=== PATIENT | female | born 1955 | race Caucasian/White ===

== ENCOUNTER 2020-04-15 10:06 | Outpatient (REF) | payer MEDICARE, MEDICAID, SELFPAY ==
--- NOTE | 2020-04-15 | US_ITS ---
EXAMINATION: US THYROID CLINICAL INFORMATION: Multinodular goiter. COMPARISON: Ultrasound soft tissue head/neck thyroid dated 03/23/2019. TECHNIQUE: Linear transducer gomez-scale and color Doppler examination with attention to the region of the thyroid. FINDINGS: SIZE: Measurements of the thyroid lobes and nodules are given in sagittal, anteroposterior and transverse dimensions respectively. Right Thyroid Lobe: 3.9 x 1.5 x 1.8 cm, volume 5.5 mL. Previously 4.9 x 1.3 x 1.5 cm, volume 5.2 mL. Parenchyma: The gland echotexture is heterogeneous. Thyroid vascularity is increased. Left Thyroid Lobe: 4.6 x 1.7 x 2.3 cm, volume 9.4 mL. Previously 4.7 x 1.6 x 1.7 cm, volume 6.7 mL. Parenchyma: The gland echotexture is heterogeneous. Thyroid vascularity is increased. Isthmus: 0.3 cm in maximum AP dimension. Previously 0.2 cm. RIGHT THYROID LOBE: There are 4 nodules seen. 1. Location: Superior. Size: 0.6 x 0.3 x 0.4 cm. Previous: This nodule is new. Nodule characteristics: Heterogenous, irregular margins with no intranodular flow. 2. Location: Inferior. Size: 0.5 x 0.2 x 0.5 cm. Previous: 0.5 x 0.3 x 0.3 cm. Nodule characteristics: Hypoechoic, smoothly marginated with echogenic microcalcifications and intranodular flow. 3. Location: Inferior. Size: 0.6 x 0.6 x 0.6 cm. Previous: 0.5 x 0.5 x 0.5 cm. Nodule characteristics: Heterogeneous, hypoechoic rind, no microcalcifications and intranodular flow. 4. Location: Inferior. Size: 0.8 x 0.4 x 0.6 cm. Previous: This nodule is new. Nodule characteristics: Heterogeneous, hypoechoic rind, no calcifications with intranodular flow. ISTHMUS: No nodules. LEFT THYROID LOBE: There is 1 nodule seen. 1. Location: Inferior. Size: 2.1 x 1.5 x 1.8 cm. Previous: 2.3 x 1.7 x 1.7 cm. Nodule characteristics: Heterogeneous, hypoechoic rind with intranodular calcifications and peripheral increased flow. NODES: No lymphadenopathy is seen in the tissue surrounding the thyroid gland. US/US thyroid IMPRESSION: Subcentimeter thyroid nodules right lobe, nonsuspicious. Solitary nodule left lobe measuring 2.1 cm previously measured 2.3 cm, suspicious. A fine-needle biopsy aspiration can be performed if clinically deemed necessary and if biopsy not done previously.
== END 2020-04-15 10:07 | disposition home or self-care (01) ==
LOC: HO.US 10:06
PROVIDERS: Visit Provider Internal Medicine
DX: E04.2 Nontoxic multinodular goiter (principal)
CPT/HCPCS: 76536

== ENCOUNTER → 2020-08-06 09:38 | Outpatient (BNVA) | payer MEDICARE, MEDICAID, SELFPAY | PROVIDERS: PCP Internal Medicine; Visit Provider Physician Assistant | DX: Z76.89 Persons encountering health services in other specified circumstances (principal) | CPT/HCPCS: Q3014 ==

== ENCOUNTER 2020-09-05 09:05 | Outpatient (REF) | payer MEDICARE, MEDICAID, SELFPAY ==
--- NOTE | ~2020-09-05 | XR_ITS ---
EXAMINATION: PELVIS AND RIGHT HIP X-RAY CLINICAL INFORMATION: Right hip pain COMPARISON: None TECHNIQUE: One view of the pelvis and 2 views of the right hip FINDINGS: Right hip: Bone alignment is normal. No fracture or dislocation is seen. Joint spaces are normal. Soft tissues are normal. Pelvis: No fracture or dislocation or bone lesion is seen. There is posterior fusion hardware seen in the lower lumbar sacral spine. There are mild degenerative changes at the sacroiliac joints. Hip joints are unremarkable. Soft tissues are unremarkable. XR/XR pelvis 1-2V IMPRESSION: Postsurgical change to the lower lumbar sacral spine otherwise unremarkable exam.
--- NOTE | ~2020-09-05 | XR_ITS ---
EXAMINATION: PELVIS AND RIGHT HIP X-RAY CLINICAL INFORMATION: Right hip pain COMPARISON: None TECHNIQUE: One view of the pelvis and 2 views of the right hip FINDINGS: Right hip: Bone alignment is normal. No fracture or dislocation is seen. Joint spaces are normal. Soft tissues are normal. Pelvis: No fracture or dislocation or bone lesion is seen. There is posterior fusion hardware seen in the lower lumbar sacral spine. There are mild degenerative changes at the sacroiliac joints. Hip joints are unremarkable. Soft tissues are unremarkable. XR/XR hip RT min 2V IMPRESSION: Postsurgical change to the lower lumbar sacral spine otherwise unremarkable exam.
== END 2020-09-05 09:06 | disposition home or self-care (01) ==
LOC: HO.HOSX 09:05
PROVIDERS: Visit Provider Physician Assistant
DX: M25.551 Pain in right hip (principal); M53.86 Other specified dorsopathies, lumbar region; F17.210 Nicotine dependence, cigarettes, uncomplicated
CPT/HCPCS: 72170; 73502; 99202

== ENCOUNTER 2020-09-19 10:51 | Day surgery (SDC) | payer MEDICARE, MEDICAID, SELFPAY ==
[2020-09-12 19:48] VITALS: BMI 23.2
--- NOTE | 2020-09-18 10:01 | P.CONAN_ITS ---
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 Sister No problems noted. Daughter No problems noted. Daughter No problems noted. Surgical History Surgical History History of appendectomy History of breast surgery History of colonoscopy History of eye surgery History of hysterectomy History of surgery Social History Social History (Updated 09/19/20 @ 11:32 by Italia Patton) Household Members: None Alcohol intake: current Alcohol intake frequency: a few times a month Alcohol type: beer Smoking Status: Current every day smoker Tobacco Type: Cigarette Packs Per Day: 1 Cigarettes Per Day: 20.0 Smoked in Last 30 Days: Yes Use of substances other than those prescribed or required for medical reasons: Yes Substance Use Type: Marijuana Last Used Substance: Days (ago) Last Used Substance Other:: 4 days ago Have you been hit, kicked, punched, or otherwise hurt by someone within the past year? If so, by whom?: No Advance Directives: No Advance Directives Information Provided: No Advance Directives on File: No Recently lost weight without trying: No Current occupational status: retired Meds Allergies Allergy/AdvReac Type Severity Reaction Status Date / Time No Known Allergies Allergy Verified 05/21/20 06:51 Exam Exam Date and Time: September 18, 2020 1001 Height,Weight and Vital Signs: Height 5 ft 2 in Weight 57.606 kg Assessment and Plan Assessment Anesthesia Assessment: Chart Reviewed Documented by User: Italia Patton 09/19/20 11:36 PMFSH Past Medical History Medical History Back pain Depression Osteoporosis PONV (postoperative nausea and vomiting) Family History Family History Father Colon cancer Mother Cancer Brother No problems noted. Sister No problems noted. Daughter No problems noted. Daughter No problems noted. Family history of problems with anesthesia: No Surgical History Surgical History History of appendectomy History of breast surgery History of colonoscopy History of eye surgery History of hysterectomy History of surgery History of Problems with Anesthesia: Yes (PONV) Social History Social History (Updated 09/19/20 @ 11:32 by Italia Patton) Household Members: None Alcohol intake: current Alcohol intake frequency: a few times a month Alcohol type: beer Smoking Status: Current every day smoker Tobacco Type: Cigarette Packs Per Day: 1 Cigarettes Per Day: 20.0 Smoked in Last 30 Days: Yes Use of substances other than those prescribed or required for medical reasons: Yes Substance Use Type: Marijuana Last Used Substance: Days (ago) Last Used Substance Other:: 4 days ago Have you been hit, kicked, punched, or otherwise hurt by someone within the past year? If so, by whom?: No Advance Directives: No Advance Directives Information Provided: No Advance Directives on File: No Recently lost weight without trying: No Current occupational status: retired [employer] Allergies Allergy/AdvReac Type Severity Reaction Status Date / Time No Known Allergies Allergy Verified 05/21/20 06:51 Exam Height,Weight and Vital Signs: Vital Signs Temp Pulse Resp BP Pulse Ox 09/19/20 11:05 98.9 F 128 H 18 126/86 95 Pulse 75 Airway Mallampati Class: II TM Dist: >3cm Neck ROM: Full Partial: Upper and Lower Loose/Missing/Broken Teeth: Yes (Many missing. Partial dentures) Heart: RRR Lungs: CTAB Assessment and Plan Assessment Anesthesia Assessment: Anesthesia Plan Discussed and Chart Reviewed Final Anesthetic Review NPO: Yes ASA Class: II Final Preanesthetic Review: No Changes in Pt Med Stat, Meds/Allgs Chart Reviewed, Consent Obtained/Reviewed and Anes Risks/Benef Reviewed Patient Risk: Low Procedure Risk: Low Assessment/Block/Sedation in SS: Assess/Block/Sedation-SS Anesthetic Plan Anesthetic Plan: MAC: Disposition: Standard PACU
[2020-09-19 11:05] VITALS: BP 126/86; PULSE 128; RESP 18; TEMP 37.2; O2SAT 95
[2020-09-19 11:20] VITALS: BMI 22.8
[2020-09-19] MEDS: Lactated Ringers 1,000 ML 100 ML IVCONT (11:20)
--- NOTE | 2020-09-19 11:38 | MHC.SHP ---
Pre-Procedural Eval Section B Chief Complaint: Screening Details of Present Illness: father with CRC Relevant Family History (Specify if Yes): Yes Relevant Social History: Tobacco Use Present Medications: see Short Stay Collaborative assessment Medical History: Significant History (Back pain Depression Osteoporosis PONV (postoperative nausea and vomiting)) History of Previous Operations: Relevant previous surgery/procedure and date(s) (History of appendectomy History of breast surgery History of colonoscopy History of eye surgery History of hysterectomy History of surgery) Allergies: Allergies Allergy/AdvReac Type Severity Reaction Status Date / Time No Known Allergies Allergy Verified 05/21/20 06:51 Review of Systems Sugical H&P ROS: Negative: Constitution, Cardiovascular, Respiratory, Neurological, Psychiatric, Hem-Onc, Allergic/Immunologic, Gastrointestinal, Genitourinary, Musculoskeletal, Integumentary, Endocrine and Eyes/Ears/Nose/Throat Exam Surgical H&P Exam: Normal: HEENT, Normal: Heart, Normal: Lungs, Normal: Extremities, Normal: Abdomen, Normal: Skin and Normal: Neurological Plan Diagnosis/Plan: Unchanged I have reviewed the history and physical and performed a pertinent physical examination on my patient. No changes have occurred unless specified.
--- NOTE | 2020-09-19 12:28 | PM.OP ---
Brief Operative Note Date of Service: 09/19/20 Pre-op diagnosis: FH CRC in father, prior incomplete colonoscopy Post-op diagnosis: same Procedure: see op note Surgeon: Kaylene Hernández MD Anesthesia: MAC Estimated blood loss (mL): 0 Condition: stable Disposition: PACU
--- NOTE | 2020-09-19 12:29 | P.OP_ITS ---
Operative Note Operative Note Date of Service: 09/19/20 Narrative: Operative Information Procedure Description: Colonoscopy COLONOSCOPY Instrument: Olympus variable stiffness pediatric scope 190L Colonoscopy Monitoring: Vital signs and clinical assessment, continuous EKG monitoring, Pulse oximetry, Carbon Dioxide monitoring and blood pressure monitoring were done throughout the procedure. Colon withdrawal time was 19 minutes. Procedure: The patient was placed in the left lateral decubitis position and pre-procedure medications were administered. After a digital rectal examination of the ano-rectum, the video colonoscope was inserted into the rectum and advanced through the colon to the cecum/TI. The colonoscope was slowly withdrawn in a retrograde panoramic fashion and the colon mucosa was carefully examined including a retroflexed view of the rectum. Findings and interventions are described below. Procedure Difficulty:difficult due to very tight rectosigmoid junction and sigmoid colon, had to really carefully manipulate the scope to get around Findings: Terminal Ileum-normal Cecum:normal Ascending Colon: normal Transverse Colon - x 2 sessile polyps 7-9 mm removed with forceps Descending Colon:normal Sigmoid Colon: severe diverticulosis with mucosal hypertrophy and narrowing Rectum: Retroflexion with moderate sized internal hemorrhoids, grade I, 3 sessile polyps removed with cold snare Anorectum - normal Colon preparation: [place] Bowel Preparation Scale Right colon; 1 Transverse colon: 2 Left colon; 1 (0 = Unprepared colon segment with mucosa not seen due to solid stool that cannot be cleared. 1 = Portion of mucosa of the colon segment seen, but other areas of the colon segment not well seen due to staining, residual stool and/or opaque liquid. 2 = Minor amount of residual staining, small fragments of stool and/or opaque liquid, but mucosa of colon segment seen well. 3 = Entire mucosa of colon segment seen well with no residual staining, small fragments of stool or opaque liquid) Impression and Post Procedure Diagnosis: polyps internal hemorrhoids diverticular disease Plan: High fiber diet leaflet Avoid straining at stool, epsom salts and sitz bath, anusol supps or cream as needed Repeat Colonoscopy in 1-2 years due to prep or earlier if clinically indicated Above findings were reviewed with the patient and relevant handouts were provided if indicated.
[2020-09-19 12:36] VITALS: BP 108/77; PULSE 74; RESP 16; TEMP 36.4; O2SAT 97
[2020-09-19 12:50] VITALS: BP 122/67; PULSE 66; RESP 16; TEMP 36.4; O2SAT 97
== END 2020-09-19 13:41 | disposition home or self-care (01) ==
PROVIDERS: PCP Internal Medicine; Visit Provider Internal Medicine Gastroenterology
PROC: 0DJD8ZZ Inspection of Lower Intestinal Tract, Via Natural or Artificial Opening Endoscopic (ICD-10-PCS; CPT 45378; principal; 2020-09-19 12:00)
DX: Z12.11 Encounter for screening for malignant neoplasm of colon (principal); Z80.0 Family history of malignant neoplasm of digestive organs; D12.3 Benign neoplasm of transverse colon; K63.5 Polyp of colon; K57.30 Diverticulosis of large intestine without perforation or abscess without bleeding; K64.0 First degree hemorrhoids; K63.89 Other specified diseases of intestine; M81.0 Age-related osteoporosis without current pathological fracture; Z85.3 Personal history of malignant neoplasm of breast; Z79.899 Other long term (current) drug therapy; F17.210 Nicotine dependence, cigarettes, uncomplicated; F12.90 Cannabis use, unspecified, uncomplicated
CPT/HCPCS: 45385; 45380; 88305; J2405

== ENCOUNTER → 2020-09-26 13:36 | Outpatient (BNVA) | payer MEDICARE, MEDICAID, SELFPAY | PROVIDERS: PCP Internal Medicine; Visit Provider Physician Assistant | DX: D36.9 Benign neoplasm, unspecified site (principal); K57.90 Diverticulosis of intestine, part unspecified, without perforation or abscess without bleeding | CPT/HCPCS: Q3014 ==

== ENCOUNTER → 2020-09-30 08:51 | Outpatient (BNVA) | payer MEDICARE, MEDICAID, SELFPAY | PROVIDERS: PCP Internal Medicine; Visit Provider Nurse Practitioner Family | DX: M53.3 Sacrococcygeal disorders, not elsewhere classified (principal); M96.1 Postlaminectomy syndrome, not elsewhere classified | CPT/HCPCS: 99202 ==

== ENCOUNTER 2020-11-05 06:56 | Outpatient (REF) | payer MEDICARE, MEDICAID, SELFPAY ==
--- NOTE | ~2020-11-05 | FL_ITS ---
EXAMINATION: XR FLUOROSCOPY WITH IMAGES CLINICAL INFORMATION: Sacrococcygeal disorder. COMPARISON: Right hip and pelvis 09/05/2020 TECHNIQUE: Fluoroscopy performed by Parisa Barillas NP. Fluoroscopy time: 0.0 minutes DAP: 0.584 Gycm2 Images: 1 FINDINGS: There is needle positioned adjacent to the right SI joint with contrast opacifying soft tissues adjacent to the SI joint. Incidental findings of S1, L4 and L4 bilateral pedicular screws and intervening rods for fusion. FL/FL guidance in treatment room IMPRESSION: Fluoroscopy was provided to Parisa Barillas for right hip procedure.
== END 2020-11-05 06:57 | disposition home or self-care (01) ==
LOC: HO.RADIR 06:56
PROVIDERS: Visit Provider Anesthesiology
DX: M53.3 Sacrococcygeal disorders, not elsewhere classified (principal); M96.1 Postlaminectomy syndrome, not elsewhere classified
CPT/HCPCS: 27096; J3300; Q9967

== ENCOUNTER → 2020-12-11 12:51 | Outpatient (BNVA) | payer MEDICARE, MEDICAID, SELFPAY | PROVIDERS: PCP Internal Medicine; Visit Provider Nurse Practitioner Family | DX: M53.3 Sacrococcygeal disorders, not elsewhere classified (principal); M96.1 Postlaminectomy syndrome, not elsewhere classified; M25.551 Pain in right hip; M54.5 Low back pain; M81.0 Age-related osteoporosis without current pathological fracture; F32.9 Major depressive disorder, single episode, unspecified; F17.210 Nicotine dependence, cigarettes, uncomplicated; Z85.3 Personal history of malignant neoplasm of breast; Z92.3 Personal history of irradiation; Z90.710 Acquired absence of both cervix and uterus; Z79.899 Other long term (current) drug therapy | CPT/HCPCS: Q3014 ==

== ENCOUNTER 2021-12-10 11:36 | Outpatient (REF) | payer MEDICARE, MEDICAID, SELFPAY ==
[2021-12-10 14:11] LABS: Hematocrit 39.9 % (37.0-47.0); Hemoglobin 13.6 g/dl (12.0-16.0); Mean Corpuscular HGB Conc 34.1 g/dl (31.0-35.0); Mean Corpuscular Hemoglobin 32.2 pg (27.0-33.0); Mean Corpuscular Volume 94.5 fL (80.0-98.0); Mean Platelet Volume 10.9 fL (9.4-12.3); Platelet Count 330 X10*3/uL (160-400); Red Blood Count 4.22 X10*6/uL (4.20-5.50); Red Cell Distribution Width 14.7 % (11.0-16.0); White Blood Count 6.9 X10*3/uL (4.8-10.8)
[2021-12-10 14:18] LABS: Alanine Aminotransferase 11 U/L (0-31); Albumin Level 4.4 g/dL (3.5-5.0); Alkaline Phosphatase 96 U/L (39-117); Anion Gap 13 (12-20); Aspartate Amino Transferase 9 U/L (5-31); Bilirubin Total 0.6 mg/dL (0.0-1.0); Blood Urea Nitrogen 11 mg/dL (9-16); Calcium 9.6 mg/dL (8.4-10.2); Carbon Dioxide 27 mmol/L (22-29); Chloride 104 mmol/L (96-108); Cholesterol 235 mg/dL; Estimated Glomerular Filt Rate > 60; Glucose Fasting 106 mg/dL (60-99); HDL Cholesterol 61 mg/dL; LDL Cholesterol Calculated 144 mg/dl; Potassium 4.5 mmol/L (3.3-5.1); Sodium 139 mmol/L (135-145); Total Protein 7.5 g/dL (6.5-8.0); Triglycerides 152 mg/dL
[2021-12-10 14:44] LABS: TSH reflex Free T4 1.64 uIU/mL (0.32-4.0)
[2021-12-10 14:46] LABS: Folate 8.9 ng/mL (> or = 4.0); Vitamin B12 405 pg/mL (200-900)
== END 2021-12-10 11:37 | disposition home or self-care (01) ==
LOC: HO.10HDL 11:36
PROVIDERS: Visit Provider Nurse Practitioner Family
DX: F41.9 Anxiety disorder, unspecified (principal); Z13.1 Encounter for screening for diabetes mellitus; Z13.220 Encounter for screening for lipoid disorders; F32.A Depression, unspecified; M96.1 Postlaminectomy syndrome, not elsewhere classified; K57.90 Diverticulosis of intestine, part unspecified, without perforation or abscess without bleeding; M54.31 Sciatica, right side
CPT/HCPCS: 36415; 80053; 80061; 82306; 82607; 82746; 84443; 85027

== ENCOUNTER 2021-12-12 11:11 | Outpatient (REF) | payer MEDICARE, MEDICAID, SELFPAY ==
[2021-12-12 14:09] LABS: Estimated Average Glucose 100 mg/dL; Hemoglobin A1c % 5.1 %
== END 2021-12-12 11:12 | disposition home or self-care (01) ==
LOC: HO.10HDL 11:11
PROVIDERS: Visit Provider Nurse Practitioner Family
DX: R73.01 Impaired fasting glucose (principal)
CPT/HCPCS: 36415; 83036

== ENCOUNTER → 2022-08-11 12:08 | Outpatient (BNVA) | payer MEDICARE, MEDICAID, SELFPAY | PROVIDERS: PCP Internal Medicine; Visit Provider Physician Assistant | DX: D36.9 Benign neoplasm, unspecified site (principal) | CPT/HCPCS: 99212 ==

== ENCOUNTER 2022-11-18 10:55 | Outpatient (REF) | payer MEDICARE, MEDICAID, SELFPAY ==
[2022-11-18 13:20] LABS: Hematocrit 42.3 % (37.0-47.0); Hemoglobin 14.4 g/dl (12.0-16.0); Mean Corpuscular Hemoglobin 32.1 pg (27.0-33.0); Mean Corpuscular Volume 94.2 fL (80.0-98.0); Platelet Count 301 X10*3/uL (160-400); Red Blood Count 4.49 X10*6/uL (4.20-5.50); Red Cell Distribution Width 13.7 % (11.0-16.0); White Blood Count 6.6 X10*3/uL (4.8-10.8)
[2022-11-18 13:43] LABS: Alanine Aminotransferase 18 U/L (0-31); Albumin Level 4.3 g/dL (3.5-5.0); Alkaline Phosphatase 98 U/L (39-117); Anion Gap 16 (12-20); Aspartate Amino Transferase 14 U/L (5-31); Bilirubin Direct 0.2 mg/dL (0.0-0.5); Bilirubin Total 0.6 mg/dL (0.0-1.0); Blood Urea Nitrogen 11 mg/dL (9-16); Calcium 10.2 mg/dL (8.4-10.2); Carbon Dioxide 27 mmol/L (22-29); Chloride 103 mmol/L (96-108); Cholesterol 234 mg/dL; Estimated Glomerular Filt Rate > 60; Glucose Random 102 mg/dL (60-115); HDL Cholesterol 51 mg/dL; LDL Cholesterol Calculated 146 mg/dl; Potassium 4.5 mmol/L (3.3-5.1); Sodium 141 mmol/L (135-145); Total Protein 7.5 g/dL (6.5-8.0); Triglycerides 188 mg/dL
[2022-11-18 13:48] LABS: Thyroid Stimulating Hormone 3.92 uIU/mL (0.32-4.0)
== END 2022-11-18 10:56 | disposition home or self-care (01) ==
LOC: HO.10HDL 10:55
PROVIDERS: Visit Provider Internal Medicine
DX: K57.90 Diverticulosis of intestine, part unspecified, without perforation or abscess without bleeding (principal); E78.00 Pure hypercholesterolemia, unspecified; E03.9 Hypothyroidism, unspecified
CPT/HCPCS: 36415; 80048; 80061; 80076; 84443; 85027

== ENCOUNTER 2022-12-31 07:20 | Day surgery (SDC) | payer MEDICARE, MEDICAID, SELFPAY ==
[2022-12-29 13:58] VITALS: BMI 22.7
--- NOTE | 2022-12-31 08:01 | MHC.SHP ---
Pre-Procedural Eval Section A Date of Service: 12/31/22 Section B Chief Complaint: screening Details of Present Illness: dad--colon cancer Relevant Family History (Specify if Yes): Yes Relevant Social History: Other (specify) (thc use,tobacco) Present Medications: see Short Stay Collaborative assessment Medical History: Significant History (Back pain History of COVID-19 Osteoporosis PONV (postoperative nausea and vomiting)) History of Previous Operations: Relevant previous surgery/procedure and date(s) ( History of appendectomy History of breast surgery History of colonoscopy History of eye surgery History of hysterectomy History of surgery) Allergies: Allergies Allergy/AdvReac Type Severity Reaction Status Date / Time No Known Allergies Allergy Verified 08/11/22 12:18 Review of Systems Sugical H&P ROS: Negative: Constitution, Cardiovascular, Respiratory, Neurological, Psychiatric, Hem-Onc, Allergic/Immunologic, Gastrointestinal, Genitourinary, Musculoskeletal, Integumentary, Endocrine and Eyes/Ears/Nose/Throat Plan I have reviewed the history and physical and performed a pertinent physical examination on my patient. No changes have occurred unless specified. Time Spent With Patient Time: Total time managing care of this patient today ____ minutes.
[2022-12-31 08:02] VITALS: BP 114/67; PULSE 78; RESP 16; TEMP 37; O2SAT 97
[2022-12-31] MEDS: Lactated Ringers 1,000 ML 80 ML IVCONT (08:19)
--- NOTE | 2022-12-31 08:19 | P.CONAN_ITS ---
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 Sister No problems noted. Daughter No problems noted. Daughter No problems noted. Family/Other Mental health disorder Substance use disorder Family history of problems with anesthesia: No Surgical History Surgical History (Updated 12/29/22 @ 13:56 by Kristy Bhatt RN) History of appendectomy History of breast surgery History of colonoscopy History of eye surgery History of hysterectomy History of surgery History of Problems with Anesthesia: Yes (PONV) Social History Social History Household Members: None Housing: Other Alcohol intake: current Alcohol intake frequency: a few times a month Alcohol type: beer Patient Tobacco Use Status: Current everyday Tobacco user Tobacco use type: Cigarette Cigarette Packs Per Day: 0.5 Cigarettes Per Day: 10 e-Cigarette/Vaping Use: Never Used Second Hand Smoke Exposure: No Use of substances other than those prescribed or required for medical reasons: Yes Substance Use Type: Marijuana Advance Directives: Yes Advance Directives Information Provided: Yes Advance Directives on File: Yes Advance Directives Date on File: 02/13/13 service: No Current occupational status: retired Cognitive needs: No Hearing needs: No Vision needs: No Meds Allergies Allergy/AdvReac Type Severity Reaction Status Date / Time No Known Allergies Allergy Verified 08/11/22 12:18 Exam Exam Date and Time: December 31, 2022 0819 Height,Weight and Vital Signs: Height 5 ft 2 in Weight 56.245 kg Last Vital Signs Temp 98.6 F 12/31/22 08:02 Pulse 78 12/31/22 08:02 Resp 16 12/31/22 08:02 BP 114/67 12/31/22 08:02 Pulse Ox 97 12/31/22 08:02 O2 Del Method Room Air 12/31/22 08:02 Airway Mallampati Class: II TM Dist: >3cm Neck ROM: Full Assessment and Plan Assessment Anesthesia Assessment: Anesthesia Plan Discussed and Chart Reviewed Final Anesthetic Review Family History of Problems with Anesthesia: No History of Problems with Anesthesia: Yes (PONV) NPO: Yes ASA Class: II Final Preanesthetic Review: No Changes in Pt Med Stat, Meds/Allgs Chart Reviewed, Consent Obtained/Reviewed and Anes Risks/Benef Reviewed Patient Risk: Intermediate Procedure Risk: Low Anesthetic Plan Anesthetic Plan: MAC: Disposition: Standard PACU
--- NOTE | 2022-12-31 08:23 | P.CONAN_ITS ---
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 Sister No problems noted. Daughter No problems noted. Daughter No problems noted. Family/Other Mental health disorder Substance use disorder Family history of problems with anesthesia: No Surgical History Surgical History (Updated 12/29/22 @ 13:56 by Kristy Bhatt RN) History of appendectomy History of breast surgery History of colonoscopy History of eye surgery History of hysterectomy History of surgery History of Problems with Anesthesia: No (PONV) Social History Social History Household Members: None Housing: Other Alcohol intake: current Alcohol intake frequency: a few times a month Alcohol type: beer Patient Tobacco Use Status: Current everyday Tobacco user Tobacco use type: Cigarette Cigarette Packs Per Day: 0.5 Cigarettes Per Day: 10 e-Cigarette/Vaping Use: Never Used Second Hand Smoke Exposure: No Use of substances other than those prescribed or required for medical reasons: Yes Substance Use Type: Marijuana Advance Directives: Yes Advance Directives Information Provided: Yes Advance Directives on File: Yes Advance Directives Date on File: 02/13/13 service: No Current occupational status: retired Cognitive needs: No Hearing needs: No Vision needs: No Meds Allergies Allergy/AdvReac Type Severity Reaction Status Date / Time No Known Allergies Allergy Verified 08/11/22 12:18 Active Medications: Current Medications Lactated Ringer's (Lr) 1,000 mls @ 80 mls/hr IVCONT .[id number] JULIAN Last Admin: 12/31/22 08:19 Dose: 80 mls/hr Exam Exam Date and Time: December 31, 2022 0823 Height,Weight and Vital Signs: Height 5 ft 2 in Weight 56.245 kg Last Vital Signs Temp 98.6 F 12/31/22 08:02 Pulse 78 12/31/22 08:02 Resp 16 12/31/22 08:02 BP 114/67 12/31/22 08:02 Pulse Ox 97 12/31/22 08:02 O2 Del Method Room Air 12/31/22 08:02 Airway Mallampati Class: II TM Dist: >3cm Neck ROM: Full Loose/Missing/Broken Teeth: Yes, Upper and Lower Assessment and Plan Assessment Anesthesia Assessment: Anesthesia Plan Discussed, Smoking Cess. Discussed and Chart Reviewed Final Anesthetic Review Family History of Problems with Anesthesia: No History of Problems with Anesthesia: No (PONV) NPO: Yes ASA Class: III Final Preanesthetic Review: No Changes in Pt Med Stat, Meds/Allgs Chart Reviewed, Consent Obtained/Reviewed and Anes Risks/Benef Reviewed Patient Risk: Intermediate Procedure Risk: Low Anesthetic Plan Anesthetic Plan: MAC: Disposition: Standard PACU
--- NOTE | 2022-12-31 08:55 | P.OP_ITS ---
Operative Note Operative Note Date of Service: 12/31/22 Narrative: Operative Information Procedure Description: Colonoscopy Indication: hx of colon polyps, FH of CRC Anesthesia: MAC COLONOSCOPY Instrument: Olympus variable stiffness pediatric scope 190L Colonoscopy Monitoring: Vital signs and clinical assessment, continuous EKG monitoring, Pulse oximetry, Carbon Dioxide monitoring and blood pressure monitoring were done throughout the procedure. Colon withdrawal time was 9 minutes. Procedure: The patient was placed in the left lateral decubitis position and pre-procedure medications were administered. After a digital rectal examination of the ano-rectum, the video colonoscope was inserted into the rectum and advanced through the colon to the cecum/TI. The colonoscope was slowly withdrawn in a retrograde panoramic fashion and the colon mucosa was carefully examined including a retroflexed view of the rectum. Findings and interventions are described below. Procedure Difficulty: moderate-tight rectosigmoid jn Findings: Terminal Ileum-normal, small tic seen Cecum:normal Ascending Colon: moderate severe diverticulosis Transverse Colon - normal Descending Colon: diverticulosis Sigmoid Colon:? severe diverticulosis with mucosal hypertrophy and narrowing, 10 mm sessile polyp removed with cold snare Rectum: Retroflexion with moderate sized internal hemorrhoids, grade I, Anorectum - normal Colon preparation: [place] Bowel Preparation Scale Right colon; 2 Transverse colon: 3 Left colon; 3 (0 = Unprepared colon segment with mucosa not seen due to solid stool that cannot be cleared. 1 = Portion of mucosa of the colon segment seen, but other areas of the colon segment not well seen due to staining, residual stool and/or opaque liquid. 2 = Minor amount of residual staining, small fragments of stool and/or opaque liquid, but mucosa of colon segment seen well. 3 = Entire mucosa of colon segment seen well with no residual staining, small fragments of stool or opaque liquid) Impression and Post Procedure Diagnosis: polyp internal hemorrhoids diverticular disease Plan: High fiber diet leaflet Avoid straining at stool, epsom salts and sitz bath, anusol supps or cream Repeat Colonoscopy in 5 years due to polyp today and pos FH of CRC or earlier if clinically indicated Above findings were reviewed with the patient and relevant handouts were provided if indicated.
[2022-12-31 09:19] VITALS: BP 109/64; PULSE 67; RESP 20; TEMP 36.9; O2SAT 96
[2022-12-31 09:34] VITALS: BP 117/67; PULSE 61; RESP 16; TEMP 36.8; O2SAT 97
== END 2022-12-31 10:08 | disposition home or self-care (01) ==
PROVIDERS: PCP Internal Medicine; Visit Provider Internal Medicine Gastroenterology
PROC: 0DJD8ZZ Inspection of Lower Intestinal Tract, Via Natural or Artificial Opening Endoscopic (ICD-10-PCS; CPT 45378; principal; 2022-12-31 09:10)
DX: Z12.11 Encounter for screening for malignant neoplasm of colon (principal); Z86.010 Personal history of colon polyps; Z80.0 Family history of malignant neoplasm of digestive organs; K63.5 Polyp of colon; K57.30 Diverticulosis of large intestine without perforation or abscess without bleeding; K64.0 First degree hemorrhoids; M81.0 Age-related osteoporosis without current pathological fracture; F17.210 Nicotine dependence, cigarettes, uncomplicated; F12.90 Cannabis use, unspecified, uncomplicated; Z86.16 Personal history of COVID-19; Z98.890 Other specified postprocedural states
CPT/HCPCS: 45385; 88305

== ENCOUNTER → 2022-12-31 07:20 | Outpatient (BNV) | payer MEDICARE, MEDICAID, SELFPAY | PROVIDERS: PCP Internal Medicine; Visit Provider Internal Medicine Gastroenterology | DX: Z86.010 Personal history of colon polyps (principal); Z80.0 Family history of malignant neoplasm of digestive organs; D12.5 Benign neoplasm of sigmoid colon; K64.0 First degree hemorrhoids; K57.30 Diverticulosis of large intestine without perforation or abscess without bleeding | CPT/HCPCS: 45385 ==

== ENCOUNTER 2023-01-13 11:15 | Outpatient (AMB) | payer MEDICARE, MEDICAID, SELFPAY ==
[2023-01-13 11:19] VITALS: BP 115/65; PULSE 107; BMI 23.0
--- NOTE | 2023-01-13 11:19 | A.OFFVIS_ITS ---
Intake Vital Signs 01/13/23 11:19 Height 5 ft 2 in Weight 126 lb BMI 23.0 BP 115/65 Blood Pressure Location Lt brachial Position Sitting Pulse 107 H Intake Visit Reasons: S/p colon-Hernández Intake Note: Patient follow up for Colonoscopy results. Patient denies any GI issues. 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 Accompanied by: Self / Same As Patient Allergies No Known Allergies Allergy (Verified 01/13/23 11:19) HPI HPI Comments History of Present Illness Details A 67 y/o female follows up after colonoscopy [facility] Medical History (Updated 01/14/23 @ 08:26 by Mary Chavarria PA-C) Back pain History of COVID-19 Osteoporosis PONV (postoperative nausea and vomiting) Surgical History (Updated 01/13/23 @ 11:40 by Mary Chavarria PA-C) History of appendectomy History of breast surgery History of colonoscopy History of eye surgery History of hysterectomy History of surgery Family History Father Colon cancer Mother Cancer Brother No problems noted. Sister No problems noted. Daughter No problems noted. Daughter No problems noted. Family/Other Mental health disorder Substance use disorder Social History Household Members: None Housing: Other Alcohol intake: current Alcohol intake frequency: a few times a month Alcohol type: beer Patient Tobacco Use Status: Current everyday Tobacco user Tobacco use type: Cigarette Cigarette Packs Per Day: 0.5 Cigarettes Per Day: 10 e-Cigarette/Vaping Use: Never Used Second Hand Smoke Exposure: No Substance Use Type: Marijuana Advance Directives Date on File: 02/13/13 service: No Current occupational status: retired Cognitive needs: No Hearing needs: No Vision needs: No Review of Systems Const All systems reviewed & are unremarkable except as noted in HPI and below Card Denies chest pain and Denies dyspnea Resp Denies dyspnea GI Denies abdominal pain Psych Reports anxiety, Reports depression, Denies homicidal ideation and Denies suicidal ideation Physical Exam Vital Signs: Last Vital Signs Pulse 107 H 01/13/23 11:19 BP 115/65 01/13/23 11:19 BMI result Body Mass Index 23.0 Const General: cooperative, comfortable, no acute distress and anxious Orientation/consciousness: patient oriented x3 Limitations: no limitations Resp Effort & Inspection: normal respiratory effort and able to speak in complete sentences Auscultation: clear to auscultation bilaterally Cardio Rate: regular rate (APR-96) Neuro General: patient oriented x3 Extrem General: Yes full ROM Psych Appearance: grossly normal Mental Status: mental status grossly normal Speech and movement: Normal speech and movement present and Clear speech present Affect: Animated affect present and Anxious affect present Attitude: cooperative Thought process: Normal thought process present Thought content: Normal thought content present Results Reviewed Results Reviewed: mpression and Post Procedure Diagnosis: polyp internal hemorrhoids diverticular disease Plan: High fiber diet leaflet Avoid straining at stool, epsom salts and sitz bath, anusol supps or cream Repeat Colonoscopy in 5 years due to polyp today and pos FH of CRC or earlier if clinically indicated Name:?Catia Waggoner Age/Sex: 67/F Attending: Kaylene Hernández MD : 1955 Submitted by: Kaylene Hernández MD Copies to: Girma Baer MD MR #: [id number] ? Status: [facility] Collected: 12/31/22 Location: [facility] Received: 12/31/22 Diagnosis Colon, sigmoid, polypectomy:? Hyperplastic polyp. Clinical History Pre-Op Dx:? Colon cancer screening, Hx/o colon polyps, FHx/o colon cancer Post-Op Dx: Diverticulosis, colon polyp, hemorrhoids Sigmoid Colon:? severe diverticulosis with mucosal hypertrophy and narrowing, 10 mm sessile polyp removed with cold snare Rectum: Retroflexion with moderate sized internal hemorrhoids, grade I, Assessment & Plan Assessment & Plan (1) History of colonoscopy: Comment: 2020, 2014, 2012 (all limited due to inadequate prep) Code(s): Z98.890 - Other specified postprocedural states (2) Diverticulosis of colon: Code(s): K57.30 - Diverticulosis of large intestine without perforation or abscess without bleeding Plan: Maintain high-fiber diet Diverticulosis/diverticulitis ER proton (3) Hemorrhoids: Code(s): K64.9 - Unspecified hemorrhoids Plan: Avoid straining High-fiber diet Rectal cream p.r.n. Patient Instructions: Repeat colonoscopy 5 years Maintain high-fiber diet Avoid straining with him Diverticulosis/diverticulitis ER protocol No major barriers to understanding identified Encouraged to call questions or concerns Coding Level of Care Code Est Pt Level 3 (20606) Diagnoses History of colonoscopy Z98.890 Diverticulosis of colon K57.30 Hemorrhoids K64.9 Time Spent (min) 25
== END 2023-01-13 12:53 | disposition home or self-care (01) ==
PROVIDERS: PCP Internal Medicine; Visit Provider Physician Assistant
DX: Z98.890 Other specified postprocedural states (principal); K57.30 Diverticulosis of large intestine without perforation or abscess without bleeding; K64.9 Unspecified hemorrhoids
CPT/HCPCS: 99213

== ENCOUNTER → 2023-01-13 11:15 | Outpatient (BNVA) | payer MEDICARE, MEDICAID, SELFPAY | PROVIDERS: PCP Internal Medicine; Visit Provider Physician Assistant | DX: K57.30 Diverticulosis of large intestine without perforation or abscess without bleeding (principal); K64.9 Unspecified hemorrhoids; Z98.890 Other specified postprocedural states | CPT/HCPCS: 99212 ==

== ENCOUNTER 2023-03-12 11:04 | Outpatient (AMB) | payer MEDICARE, MEDICAID, SELFPAY ==
--- NOTE | 2023-03-12 11:17 | A.OFFPC_ITS ---
Vital Signs 03/12/23 11:19 Height 5 ft 2 in Weight 127 lb 4 oz BMI 23.3 BP 100/70 Blood Pressure Location Lt brachial Position Sitting Pulse 105 H Pulse Source Pulse Oximeter Pulse Oximetry (%) 95 Oxygen Delivery Method Room Air Intake Visit Reasons: Back pain/ Referral Intake Note: Patient is here to follow up on back pain. Requesting referral for back pain. 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 Accompanied by: Self / Same As Patient Allergies No Known Allergies Allergy (Verified 03/12/23 11:19) Tobacco use date assessed: 03/12/23 Fall risk assessment: No Falls in past year Last assessed Fall Risk: 03/12/23 Dental Screening Dental Screen Date: 03/12/23 Did you have a dental visit in the last 12 months?: Yes Did you have a dental problem in the last 6 months where you did not have access to dental care?: No Was dental information given to patient?: Patient has dentist HPI HPI Comments History of Present Illness Details 67-year-old female past medical history significant for anxiety, failed back syndrome, right-sided sciatica. Patient of Dr. Baer last seen in May patient presents today for back pain. Patient states she bending over to dump over tote. Patient states she felt it crack. Patient states occasional pain or sleeping, Patient states occasionally radiates down left leg left leg and numbness. Denies saddle parathesia and bowel or bladder incontinence. Patient reports Spinal fusion in 1998, at [facility] and has been followed by [facility]. Patient does report that back improving, denies any numbness or tingling down the legs, denies saddle paresthesias and denies any bowel or bladder continence. Patient states taking ibuprofen as needed with improvement of pain. [facility] Medical History Back pain History of COVID-19 Osteoporosis PONV (postoperative nausea and vomiting) Surgical History History of colonoscopy History of surgery History of eye surgery History of hysterectomy History of breast surgery History of appendectomy Family History Father Colon cancer Mother Cancer Brother No problems noted. Sister No problems noted. Daughter No problems noted. Daughter No problems noted. Family/Other Mental health disorder Substance use disorder Social History Household Members: None Housing: Other Alcohol intake: current Alcohol intake frequency: a few times a month Alcohol type: beer Patient Tobacco Use Status: Current everyday Tobacco user Tobacco use type: Cigarette Cigarette Packs Per Day: 0.5 Cigarettes Per Day: 10 e-Cigarette/Vaping Use: Never Used Second Hand Smoke Exposure: Yes Substance Use Type: Marijuana Advance Directives Date on File: 02/13/13 service: No Current occupational status: retired Cognitive needs: No Hearing needs: No Vision needs: No Questionnaire PHQ-9 Over the last 2 weeks, how often have you been bothered by any of the following problems? 1. Little interest or pleasure in doing things: more than half the days 2. Feeling down, depressed, or hopeless: more than half the days 3. Trouble falling or staying asleep, or sleeping too much: more than half the days 4. Feeling tired or having little energy: more than half the days 5. Poor appetite or overeating: not at all 6. Feeling bad about yourself - or that you are a failure or have let yourself or your family down: more than half the days 7. Trouble concentrating on things, such as reading the newspaper or watching television: not at all 8. Moving or speaking so slowly that other people could have noticed. Or the opp osite - being so fidgety or restless that you have been moving around a lot more than usual: not at all 9. Thoughts that you would be better off or of hurting yourself in some way: several days Total score: 11 Source: Developed by Drs. Edward Atwood, Angelina Grant, Pietro Mcfadden and colleagues, with an educational sherin from [employer]. Thrive Questionnaire Date Thrive assessed: 03/12/23 I am a: Patient What is your living situation today?: I have a steady place to live Within the past 12 months, did the food you bought not last and you didn't have the money to get more?: Never true Within the past 12 months, did you worry whether your food would run out before you got money to buy more?: Never true Do you have trouble paying for medicines?: No Do you have trouble getting transportation to medical appointments?: No Do you have trouble paying your heating and electricity bill?: No Do you have trouble taking care of your child, family member or friend?: No Do you have trouble with day-to-day activities such as bathing, preparing meals, shopping, managing finances, etc.?: No Are you currently unemployed and looking for a job?: No Are you interested in more education?: No Currently or been in a relationship where the following occur: no concerns reported AUDIT C Alcohol Use Questionnaire (AUDIT-C) 1. How often do you have a drink containing alcohol?: 4 or more times a week 2. How many drinks containing alcohol do you have on a typical day when you are drinking?: 1 or 2 Total Score: 4 ALEJANDRO-7 AMB Questionnaire ALEJANDRO-7 Date ALEJANDRO - 7 assessed: 03/12/23 Feeling nervous, anxious, or on edge: 2 = More than half the days Not being able to stop or control worryin = More than half the days Worrying too much about different things: 2 = More than half the days Trouble relaxin = Several days Being so restless that it is hard to sit still: 1 = Several days Becoming easily annoyed or irritable: 3 = Nearly every day Feeling afraid as if something awful might happen: 1 = Several days Total ALEJANDRO-7 score (0-4 normal; 5-9 mild; 10-14 moderate; 15-21 severe): 12 Source: Developed by Drs. Edward Atwood, Angelina Grant, Pietro Mcfadden and colleagues, with an educational sherin from [employer]. Review of Systems Const Denies chills, Denies fatigue, Denies fever(s) and Denies poor appetite Eyes Denies no additional complaints ENT Reports Normal hearing present Card Denies chest pain, Denies syncope, Denies rapid heart rate and Denies dyspnea Resp Denies cough and Denies dyspnea GI Denies change in stool character, Denies constipation, Denies diarrhea, Denies nausea and Denies vomiting Denies urinary frequency, Denies dysuria and Denies urinary urgency Musc Reports back pain Neuro Reports Normal hearing present, Denies confusion and Denies syncope Psych Denies confusion Endo Denies fatigue Physical exam (Primary Care) Vital Signs: Last Vital Signs Pulse 105 H 03/12/23 11:19 BP 100/70 03/12/23 11:19 Pulse Ox 95 03/12/23 11:19 Oxygen Delivery Method Room Air 03/12/23 11:19 BMI result Body Mass Index 23.3 Tobacco/Smoking Status: Tobacco use Status Tobacco use date assessed 03/12/23 03/12/23 11:29 Patient Tobacco Use Status Current everyday Tobacco 03/12/23 11:29 Tobacco use type Cigarette 03/12/23 11:29 e-Cigarette/Vaping Use Never Used 03/12/23 11:29 PHQ-9: PHQ-9 Score PHQ-9: Total score 11 03/12/23 11:46 Thrive Assessment: Date of Thrive Assessment Date Thrive assessed 03/12/23 03/12/23 11:29 Currently or been in a relationship where the following occur: no concerns reported Const General: No confusion Orientation/consciousness: No confusion HENMT Head: Yes normocephalic and Yes atraumatic Eyes Conjunctivae: conjunctivae normal Chest Chest palpation & inspection: normal inspection of the chest Resp Effort & Inspection: normal respiratory effort Auscultation: clear to auscultation bilaterally, no crackles, no rhonchi and no wheezes Cardio Rate: regular rate Rhythm: regular rhythm Heart sounds: S1 normal heart sound present and S2 normal heart sound present GI Inspection: Yes normal to inspection General: Yes no CVA tenderness Back/Spine/Pelvis Back: no CVA tenderness Cervical Spine: normal cervical lordosis Thoracic/Lumbar Spine: straight leg raise negative bilaterally, No paraspinal muscle tenderness, No thoracic spinal tenderness, No lumbar spinal tenderness and straight leg raise positive (Bilateral) Pelvis: no sciatic notch tenderness Neuro General: No confusion Cranial nerves: Yes Normal hearing present Extrem General: No edema Assessment and Plan Assessment & Plan (1) 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 Patient reports she was previously followed by [facility], new referral entered. Patient advised to take ibuprofen 600 mg as needed for pain and inflammation and patient given cyclobenzaprine to take as needed at bedtime for muscle spasm. Patient advised muscle relaxer could make drowsy and to drive work on medicatio n. Signs and symptoms reviewed with patient when to seek emergency attention. Plan Keep scheduled physical exam with pcp or follow up sooner if needed. 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
[2023-03-12 11:19] VITALS: BP 100/70; PULSE 105; O2SAT 95; BMI 23.3
== END 2023-03-12 11:59 | disposition home or self-care (01) ==
PROVIDERS: PCP Internal Medicine; Visit Provider Nurse Practitioner Family
DX: M53.86 Other specified dorsopathies, lumbar region (principal)
CPT/HCPCS: 99213

== ENCOUNTER 2023-03-23 14:53 | Outpatient (REF) | payer MEDICARE, MEDICAID, SELFPAY | END 2023-03-23 14:54 | disposition home or self-care (01) | LOC: HO.XRAY 14:53 | PROVIDERS: Visit Provider Physical Medicine & Rehabilitation | DX: M47.816 Spondylosis without myelopathy or radiculopathy, lumbar region (principal); M53.2X6 Spinal instabilities, lumbar region | CPT/HCPCS: 72110 ==

== ENCOUNTER 2023-04-15 10:24 | Outpatient (REF) | payer MEDICARE, MEDICAID, SELFPAY ==
--- NOTE | ~2023-04-15 | XR_ITS ---
EXAMINATION: XR LUMBOSACRAL SPINE WITH OBLIQUES CLINICAL INFORMATION: Pain. COMPARISON: Most recent lumbar spine radiographs dated 03/23/2023. TECHNIQUE: AP, lateral, coned down, flexion, extension, and bilateral oblique views of the lumbar spine were obtained. FINDINGS: Redemonstration of posterior stabilization hardware at L4 through S1 as seen on the prior examination. No hardware fracture. No perihardware lucency to suggest loosening or infection. Anterolisthesis of L3 on L4 which measures approximately 1.6 cm in AP dimension during neutral positioning. This measures approximately 1.8 cm with flexion and 1.0 cm with extension. Findings are similar in alignment when compared to the prior radiographs. Mild loss of vertebral body height redemonstrated at T12 and L1, unchanged. No new fracture. Loss of intervertebral disc height at L3-L4, unchanged. No concerning lytic or blastic osseous lesion. Atherosclerotic calcifications. XR/XR lumbar spine 4V min IMPRESSION: 1. Posterior stabilization hardware at L4 through S1 without evidence of complication. 2. Anterolisthesis of L3 on L4 which measures approximately 1.6 cm in AP dimension during flexion and 1.0 cm with extension. 3. Additional chronic findings are unchanged. No acute fracture or subluxation. No significant interval change.
== END 2023-04-15 10:25 | disposition home or self-care (01) ==
LOC: HO.XRAY 10:24
PROVIDERS: PCP Internal Medicine; Visit Provider Physical Medicine & Rehabilitation
DX: M54.50 Low back pain, unspecified (principal)
CPT/HCPCS: 72110

== ENCOUNTER 2023-06-17 10:17 | Outpatient (AMB) | payer MEDICARE, MEDICAID, SELFPAY ==
--- NOTE | 2023-06-17 10:26 | MHC.PC.OV ---
Vital Signs 06/17/23 10:27 Height 5 ft 2 in Weight 127 lb BMI 23.2 BP 130/70 Blood Pressure Location Lt brachial Position Sitting Pulse 92 Pulse Source Pulse Oximeter Pulse Oximetry (%) 92 Oxygen Delivery Method Room Air Intake Visit Reasons: PE Intake Note: Patient is here today for a physical. 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 Since last office visit, patient continues to be homeless. She has not been assigned housing. She sleeps in several of her friends houses. She is scheduled for back surgery on June 29 at [facility]. Patient is compliant with medications. [facility] Medical History History of COVID-19 Osteoporosis PONV (postoperative nausea and vomiting) Back pain Surgical History History of colonoscopy History of surgery History of eye surgery History of hysterectomy History of breast surgery History of appendectomy Family History Father Colon cancer Mother Cancer Brother No problems noted. Sister No problems noted. Daughter No problems noted. Daughter No problems noted. Family/Other Mental health disorder Substance use disorder Social History Household Members: None Housing: Other Alcohol intake: current Alcohol intake frequency: a few times a month Alcohol type: beer Patient Tobacco Use Status: Current everyday Tobacco user Tobacco use type: Cigarette Cigarette Packs Per Day: 0.5 Cigarettes Per Day: 10 e-Cigarette/Vaping Use: Never Used Second Hand Smoke Exposure: Yes Substance Use Type: Marijuana Advance Directives Date on File: 02/13/13 service: No Current occupational status: retired Cognitive needs: No Hearing needs: No Vision needs: No Questionnaire Thrive Questionnaire Date Thrive assessed: 03/12/23 ALEJANDRO-7 AMB Questionnaire ALEJANDRO-7 Date ALEJANDRO - 7 assessed: 03/12/23 Source: Developed by DrsMarichuy Atwood, Angelina Grant, Pietro Mcfadden and colleagues, with an educational sherin from [employer]. Physical exam (Primary Care) Vital Signs: Last Vital Signs Pulse 92 06/17/23 10:27 BP 130/70 06/17/23 10:27 Pulse Ox 92 06/17/23 10:27 Oxygen Delivery Method Room Air 06/17/23 10:27 BMI result Body Mass Index 23.2 Tobacco/Smoking Status: Tobacco use Status Tobacco use date assessed 06/17/23 06/17/23 10:31 Patient Tobacco Use Status Current everyday Tobacco 06/17/23 10:31 Tobacco use type Cigarette 06/17/23 10:31 e-Cigarette/Vaping Use Never Used 06/17/23 10:31 Thrive Assessment: Date of Thrive Assessment Date Thrive assessed 03/12/23 06/17/23 10:31 Const General: cooperative and healthy appearing Nutritional Appearance: well nourished Orientation/consciousness: patient oriented x3 Limitations: no limitations HENMT Head: Yes normal to inspection Eyes General: appearance normal, both eyes and all related structures Neck Neck: Yes normal visual inspection Chest Chest palpation & inspection: normal palpation of entire chest wall Resp Effort & Inspection: normal respiratory effort Neuro General: patient oriented x3 Assessment and Plan Assessment & Plan (1) Annual physical exam: Code(s): Z00.00 - Encounter for general adult medical examination without abnormal findings Plan: Blood work reviewed. Patient is up-to-date on all her screening immunizations. Coding Level of Care Code Est Pt Prev Care >65y(04959) Diagnoses Annual physical exam Z00.00
[2023-06-17 10:27] VITALS: BP 130/70; PULSE 92; O2SAT 92; BMI 23.2
== END 2023-06-17 10:58 | disposition home or self-care (01) ==
PROVIDERS: Visit Provider Internal Medicine
DX: Z00.00 Encounter for general adult medical examination without abnormal findings (principal)
CPT/HCPCS: 99397

== ENCOUNTER 2024-05-04 13:04 | Outpatient (AMB) | payer MEDICARE, MEDICAID, SELFPAY ==
--- NOTE | 2024-05-04 13:09 | A.OFFPC_ITS ---
Vital Signs 05/04/24 13:14 Height 5 ft 2 in Weight 124 lb BMI 22.7 BP 120/80 Blood Pressure Location Lt brachial Position Sitting Pulse 94 Pulse Source Pulse Oximeter Pulse Oximetry (%) 97 Oxygen Delivery Method Room Air Intake Visit Reasons: April and May eye surgery Intake Note: Patient is here for a Pre-op for Cataract Eye surgery scheduled with Dr Gomes on right eye 05/15, left eye 05/29. Pt decline flu shot today. Human Resources Training Manager Required: No Public Information Specialist: Not Required per policy Accompanied by: Self / Same As Patient Allergies No Known Allergies Allergy (Verified 05/04/24 13:42) Medication List - Last Reconciled 05/04/24 by Girma Baer MD citalopram 20 mg PO DAILY cyclobenzaprine 5 mg PO BEDTIME PRN ibuprofen 800 mg PO Q8H PRN Tobacco use date assessed: 05/04/24 Fall risk assessment: No Falls in past year Last assessed Fall Risk: 05/04/24 Dental Screening Dental Screen Date: 05/04/24 Did you have a dental visit in the last 12 months?: Yes Did you have a dental problem in the last 6 months where you did not have access to dental care?: No Was dental information given to patient?: Patient has dentist HPI April and May eye surgery HPI Details 68-year-old female presents to the offic e for preop clearance. Patient is scheduled to have her right eye cataract on May 15 and the left eye cataract extraction on May 29. She has no history of coronary artery disease or kidney disease. Patient is a smoker. [facility]LY [facility] Medical History History of COVID-19 Osteoporosis PONV (postoperative nausea and vomiting) Back pain Surgical History History of colonoscopy History of surgery History of eye surgery History of hysterectomy History of breast surgery History of appendectomy Family History Father Colon cancer Mother Cancer Brother No problems noted. Sister No problems noted. Daughter No problems noted. Daughter No problems noted. Family/Other Mental health disorder Substance use disorder Social History (Reviewed 05/04/24 @ 13:09 by LISA Monson Household Members: None Housing: Other Alcohol intake: current Alcohol intake frequency: a few times a month Alcohol type: beer Patient Tobacco Use Status: Current everyday Tobacco user Tobacco use type: Cigarette Cigarette Packs Per Day: 0.5 Cigarettes Per Day: 10 e-Cigarette/Vaping Use: Never Used Second Hand Smoke Exposure: Yes Substance Use Type: Marijuana Advance Directives Date on File: 02/13/13 service: No Current occupational status: retired Cognitive needs: No Hearing needs: No Vision needs: No Questionnaire PHQ-9 Over the last 2 weeks, how often have you been bothered by any of the following problems? 1. Little interest or pleasure in doing things: not at all 2. Feeling down, depressed, or hopeless: not at all 3. Trouble falling or staying asleep, or sleeping too much: not at all 4. Feeling tired or having little energy: not at all 5. Poor appetite or overeating: not at all 6. Feeling bad about yourself - or that you are a failure or have let yourself or your family down: not at all 7. Trouble concentrating on things, such as reading the newspaper or watching television: not at all 8. Moving or speaking so slowly that other people could have noticed. Or the opposite - being so fidgety or restless that you have been moving around a lot more than usual: not at all 9. Thoughts that you would be better off or of hurting yourself in some way: not at all Total score: 0 Depression Screening Interpretation: Negative Depression Screening Done: Yes Source: Developed by Drs. Edward Atwood, Angelina Grant, Pietro Mcfadden and colleagues, with an educational sherin from [employer]. Thrive Questionnaire Date Thrive assessed: 05/04/24 I am a: Patient What is your living situation today?: I have a steady place to live Within the past 12 months, did the food you bought not last and you didn't have the money to get more?: Never true Within the past 12 months, did you worry whether your food would run out before you got money to buy more?: Never true Do you have trouble paying for medicines?: No Do you have trouble getting transportation to medical appointments?: No Do you have trouble paying your heating and electricity bill?: No Do you have trouble taking care of your child, family member or friend?: No Do you have trouble with day-to-day activities such as bathing, preparing meals, shopping, managing finances, etc.?: No Are you currently unemployed and looking for a job?: No Are you interested in more education?: No Please select the resources that you would like help with: None Currently or been in a relationship where the following occur: No concerns reported THRIVE Score: 0 AUDIT C Alcohol Use Questionnaire (AUDIT-C) 1. How often do you have a drink containing alcohol?: 4 or more times a week 2. How many drinks containing alcohol do you have on a typical day when you are drinking?: 1 or 2 Total Score: 4 ALEJANDRO-7 AMB Questionnaire ALEJANDRO-7 Date ALEJANDRO - 7 assessed: 05/04/24 Feeling nervous, anxious, or on edge: 0 = Not at all Not being able to stop or control worryin = Not at all Worrying too much about different things: 0 = Not at all Trouble relaxin = Not at all Being so restless that it is hard to sit still: 0 = Not at all Becoming easily annoyed or irritable: 0 = Not at all Feeling afraid as if something awful might happen: 0 = Not at all Total ALEJANDRO-7 score (0-4 normal; 5-9 mild; 10-14 moderate; 15-21 severe): 0 Source: Developed by Drs. Edward Atwood, Angelina Grant, Pietro Mcfadden and colleagues, with an educational sherin from [employer]. Physical exam (Primary Care) Vital Signs: Last Vital Signs Pulse 94 05/04/24 13:14 BP 120/80 05/04/24 13:14 Pulse Ox 97 05/04/24 13:14 Oxygen Delivery Method Room Air 05/04/24 13:14 BMI result Body Mass Index 22.7 Tobacco/Smoking Status: Tobacco use Status Tobacco use date assessed 05/04/24 05/04/24 13:22 Patient Tobacco Use Status Current everyday Tobacco 05/04/24 13:10 Tobacco use type Cigarette 05/04/24 13:10 e-Cigarette/Vaping Use Never Used 05/04/24 13:10 PHQ-9: PHQ-9 Score PHQ-9: Total score 0 05/04/24 13:10 Depression Screening Interpretation: Negative Thrive Assessment: Date of Thrive Assessment Date Thrive assessed 05/04/24 05/04/24 13:10 Currently or been in a relationship where the following occur: No concerns reported Const General: cooperative and healthy appearing Nutritional Appearance: well nourished Orientation/consciousness: patient oriented x3 Limitations: no limitations HENMT Head: Yes normal to inspection Eyes General: appearance normal, both eyes and all related structures Neck Neck: Yes normal visual inspection Chest Chest palpation & inspection: normal palpation of entire chest wall Resp Effort & Inspection: normal respiratory effort Neuro General: patient oriented x3 Coding Level of Care Code Est Pt Level 4 (82747) Complex EM visit Add On G2211 Diagnoses Elevated fasting glucose R73.01 Preoperative clearance Z01.818 Assessment & Plan Assessment & Plan (1) Elevated fasting glucose: Code(s): R73.01 - Impaired fasting glucose Category: Medical Plan: A1c has been ordered. (2) Preoperative clearance: Code(s): Z01.818 - Encounter for other preprocedural examination Plan: Patient is clear for surgery. Take citalopram up to the day prior of surgery a nd start as soon as possible after surgery. Orders: Orders Liver Panel Today R73.01 - Impaired fasting glucose, Z01.818 - Encounter for other preprocedural examination Thyroid Stimulating Hormone Today R73.01 - Impaired fasting glucose, Z01.818 - Encounter for other preprocedural examination Microalbumin, Random (w Creat) Today R73.01 - Impaired fasting glucose, Z01.818 - Encounter for other preprocedural examination ECG 12 lead EKG Today Z01.818 - Encounter for other preprocedural examination Basic Metabolic Panel Today R73.01 - Impaired fasting glucose, Z01.818 - Encounter for other preprocedural examination Complete Blood Count no Diff Today R73.01 - Impaired fasting glucose, Z01.818 - Encounter for other preprocedural examination Lipid Panel Today R73.01 - Impaired fasting glucose, Z01.818 - Encounter for other preprocedural examination UA and rflx microscopic Today R73.01 - Impaired fasting glucose, Z01.818 - Encounter for other preprocedural examination Hemoglobin A1c Today R73.01 - Impaired fasting glucose, Z01.818 - Encounter for other preprocedural examination
[2024-05-04 13:14] VITALS: BP 120/80; PULSE 94; O2SAT 97; BMI 22.7
== END 2024-05-04 14:42 | disposition home or self-care (01) ==
PROVIDERS: PCP Internal Medicine; Visit Provider Internal Medicine
DX: R73.01 Impaired fasting glucose (principal); Z01.818 Encounter for other preprocedural examination

== ENCOUNTER → 2024-05-04 13:04 | Outpatient (BNVA) | payer MEDICARE, MEDICAID, SELFPAY | PROVIDERS: PCP Internal Medicine; Visit Provider Internal Medicine | DX: Z01.818 Encounter for other preprocedural examination (principal); R73.01 Impaired fasting glucose | CPT/HCPCS: 96127; 99212 ==

== ENCOUNTER 2024-05-05 08:29 | Outpatient (REF) | payer MEDICARE, MEDICAID, SELFPAY ==
--- NOTE | 2024-05-05 08:36 | ECG_ITS ---
Test Reason : PREOP Blood Pressure : / mmHG Vent. Rate : 093 BPM Atrial Rate : 071 BPM P-R Int : 152 ms QRS Dur : 066 ms QT Int : 348 ms P-R-T Axes : 062 024 -32 degrees QTc Int : 432 ms Sinus rhythm with marked sinus arrhythmia ST & T wave abnormality, consider anterolateral ischemia Abnormal ECG No previous ECGs available Referred By: Girma Baer Electronically Signed By:Zay Rey
[2024-05-05 09:39] LABS: Hematocrit 41.1 % (37.0-47.0); Hemoglobin 14.1 g/dl (12.0-16.0); Mean Corpuscular HGB Conc 34.3 g/dl (31.0-35.0); Mean Corpuscular Hemoglobin 32.8 pg (27.0-33.0); Mean Corpuscular Volume 95.6 fL (80.0-98.0); Mean Platelet Volume 10.1 fL (9.4-12.3); Platelet Count 361 X10*3/uL (160-400); Red Cell Distribution Width 12.6 % (11.0-16.0); White Blood Count 6.7 X10*3/uL (4.8-10.8)
[2024-05-05 09:46] LABS: Estimated Average Glucose 108 mg/dL; Hemoglobin A1C 130.1138 umol/L; Hemoglobin A1c % 5.4 % (<6.0); Total Hemoglobin (HGBA1C) 3714.3533 umol/L
[2024-05-05 10:22] LABS: Alanine Aminotransferase 13 U/L (0-31); Albumin Level 4.4 g/dL (3.5-5.0); Alkaline Phosphatase 111 U/L (39-117); Anion Gap 11 (12-20); Aspartate Amino Transferase 13 U/L (5-31); Bilirubin Direct 0.2 mg/dL (0.0-0.5); Bilirubin Total 0.6 mg/dL (0.0-1.0); Blood Urea Nitrogen 9 mg/dL (9-16); Calcium 9.3 mg/dL (8.4-10.2); Carbon Dioxide 29 mmol/L (22-29); Chloride 105 mmol/L (96-108); Cholesterol 198 mg/dL (<200); Estimated Glomerular Filt Rate > 60; Glucose Random 89 mg/dL (60-115); HDL Cholesterol 46 mg/dL (>40); LDL Cholesterol Calculated 128 mg/dL (<100); Potassium 4.2 mmol/L (3.3-5.1); Sodium 141 mmol/L (135-145); Total Protein 7.6 g/dL (6.5-8.0); Triglycerides 121 mg/dL (<150)
[2024-05-05 10:37] LABS: Thyroid Stimulating Hormone 1.78 uIU/mL (0.32-4.0)
[2024-05-05 12:01] LABS: Appearance Urine Cloudy; Color Urine Yellow; Glucose Urine UA Negative (Negative); Leukocyte Esterase Urine Small (1+) (Negative); Nitrite Urine Negative (Negative); Specific Gravity - Urine 1.015 (1.005-1.025); UMIC TRIGGER UA YES; Urine Blood Trace (Negative); Urine Ketones Negative (Negative); Urine Protein Negative (Neg-Trace)
[2024-05-05 12:05] LABS: Bacteria Urine 1+ (None Seen); Hyaline Casts Urine 0-2 /LPF (0-2); RBC Urine 0-2 /HPF (0-2)
[2024-05-05 12:27] LABS: Creatinine Urine 128.19 mg/dL
== END 2024-05-05 08:30 | disposition home or self-care (01) ==
LOC: HO.LAB 08:29
PROVIDERS: PCP Internal Medicine; Visit Provider Internal Medicine
DX: Z01.818 Encounter for other preprocedural examination (principal); R73.01 Impaired fasting glucose
CPT/HCPCS: 36415; 80048; 80061; 80076; 81001; 81003; 82043; 82570; 83036; 84443; 85027; 93005

== ENCOUNTER → 2024-05-05 08:36 | Outpatient (BNV) | payer MEDICARE, MEDICAID, SELFPAY | PROVIDERS: PCP Internal Medicine; Visit Provider Internal Medicine Cardiovascular Disease | DX: R94.31 Abnormal electrocardiogram [ECG] [EKG] (principal) | CPT/HCPCS: 93010 ==

== ENCOUNTER 2024-05-15 06:28 | Day surgery (SDC) | payer MEDICARE, MEDICAID, SELFPAY ==
[2024-05-10 07:29] VITALS: BMI 22.7
--- OUTSIDE RECORDS SUMMARY | 2024-05-15 06:30 | XMS_ITS | Continuity of Care Document ---
Author Organization [facility] Address [address] [place] [address]- Care Team Providers Care Animal Therapist Name Role Phone Buffy BANGURA, Girma Echavarria Primary Care Physic kedar Encounter [facility] [place] [id number] Date(s): 01/20/21 - 02/19/21 [facility] [address] [place] [address]- Attending Physician: Dayne Busby Admitting Physician: Dayne Busby Referring Physician: AdmtrDayne Allergies, Adverse Reactions, Alerts Substance Reaction Severity Status NKA Active Medications Calcium 600 +D By Mouth, 0 Refills, Maintenance, 01/15/20 8:58:00 EDT Start Date: 01/15/20 Status: Ordered escitalopram 10 mg oral tablet 1 tablet = 10 mg, By Mouth, Daily, 0 Refills, Maintenance, 01/22/15 10:46:00 Start Date: 01/22/15 Status: Ordered ibuprofen 400 mg oral tablet 1 tablet = 400 mg, By Mouth, Every 8 hours, # 30 tablet, 1 Refills, Maintenance, 01/22/15 11:05:47,Tablet, 1 tablet By Mouth Every 8 hours Start Date: 01/22/15 Status: Ordered tamoxifen 20 mg oral tablet 1 tablet = 20 mg, By Mouth, Daily, # 90 tablet, 3 Refills, Maintenance, 12/25/16 9:24:50, Tablet Start Date: 12/25/16 Stop Date: 12/20/17 Status: Ordered Vitamin D3 By Mouth, Daily, 0 Refills, Maintenance, 01/15/20 8:58:00 EDT Start Date: 01/15/20 Status: Ordered Problem List Condition Effective Dates Status Health Status Inform ant Carcinoma in Situ of Breast(Confirmed) Active Urinary tract infectious disease(Confirmed) Active Seroma(Confirmed) Active Social History Social History Type Response Smoking Status Current every day ct williamson entered on: 09/20/14 Sex
--- OUTSIDE RECORDS SUMMARY | 2024-05-15 06:30 | XMS_ITS | Continuity of Care Document ---
Author Organization [facility] Address [address] [place] [address]- Care Team Providers Care Crop Production Advisor Name Role Phone Buffy BANGURA, Girma Echavarria Primary Care Physic kedar [id number] Date(s): 01/13/21 - 02/19/21 [facility] [address] [place] [address]- Attending Physician: Zac BARON, Josy Moreno Admitting Physician: Zac BARON, Josy Moreno Referring Physician: Girma Baer MD Allergies, Adverse Reactions, Alerts Substance Reaction Severity [...]
--- OUTSIDE RECORDS SUMMARY | 2024-05-15 06:30 | XMS_ITS | Continuity of Care Document ---
Author Organization [facility] Address [address] [place] [address]- Care Team Providers Care Pipe Smoking Machine Offbearer Name Role Phone Buffy BANGURA, Girma Echavarria Primary Care Physic kedar Encounter [facility] [place] Date(s): 07/10/21 - 08/09/21 [facility] [address] [place] [address] Attending Physician: Dayne Busyb Admitting Physician: Dayne Busby Referring Physician: AdmtrDayne Allergies, Adverse Reactions, Alerts No Known Allergies Medications Calcium 600 +D By Mouth, 0 [...]
--- OUTSIDE RECORDS SUMMARY | 2024-05-15 06:30 | XMS_ITS | Continuity of Care Document ---
Author Organization [facility] Address [address] [place] [address]- Care Team Providers Care Human Development Professor Name Role Phone Buffy BANGURA, Girma Echavarria Primary Care Physic kedar Encounter [facility] Date(s): 12/31/21 - 07/08/[address] [address]- Attending Physician: Venita Paz NP Admitting Physician: Venita Paz NP Referring Physician: Venita Paz NP Allergies, Adverse Reactions, Alerts No Known Allergies Medications Calcium 600 +D By Mouth, 0 Refills, Maintenance, 01/15/20 8:58:00 EDT Start Date: 01/15/20 Status: Ordered escitalopram 10 mg oral tablet 1 tablet = 10 mg, By Mouth, Daily, 0 Refills, Maintenance, 01/22/15 10:46:00 Start Date: 01/22/15 Status: Ordered HydrOXYzine HCL Tablet = 25 mg, By Mouth, 4 times a day, 0 Refills, Maintenance, 06/17/22 16:34:00 EST, Partial fill upon patient request if the prescription is for a schedule II opioid drug. Start Date: 06/17/22 Status: Ordered ibuprofen 400 mg oral tablet 1 tablet = 400 mg, By Mouth, Every 8 hours, # 30 tablet, 1 Refills, Maintenance, 01/22/15 11:05:47,Tablet, 1 tablet By Mouth Every 8 hours Start Date: 01/22/15 Status: Ordered Mastectomy Bra See Instructions, # 6 each, Refills 1, Tot. Refills 1, Maintenance, DX: history of right breast cancer, breast asymmetry, 06/17/22 17:52:00 EST, Supply Start Date: 06/17/22 Status: Ordered Mastectomy Prosthesis See Instructions, # 1 each, Refills 1, Tot. Refills 1, Maintenance, DX: history of right breast cancer, breast asymmetry, 06/17/22 17:53:00 EST, Supply Start Date: 06/17/22 Status: Ordered Vitamin D3 By Mouth, Daily, 0 Refills, Maintenance, 01/15/20 8:58:00 EDT Start Date: 01/15/20 Status: Ordered Problem List Condition Confirmation Course Effective Dates Status Health St atus Informant Carcinoma in Situ of Breast Confirmed Active Urinary tract infectious disease Confirmed Active Seroma Confirmed Active Social History Social History Type Response Smoking Status Current every day ct williamson entered on: 09/20/14 Sex Patient Care team information Care Team Personnel Name: Buffy BANGURA, Girma Echavarria Position: Reference Physician Member Role: PCP Address: Address: [address] [place] [address]- Care Team Related Persons Name: VENITA GARCIA Name: JAMAL RICARDO Address: [address] [place] [address] Name: ANGEL KWAN Address: [address] [place] [address]
--- OUTSIDE RECORDS SUMMARY | 2024-05-15 06:30 | XMS_ITS | Continuity of Care Document ---
Author Organization [facility] Address [address] [place] [address]- Care Team Providers Care Data Mining Analyst Name Role Phone Buffy BANGURA, Girma Echavarria Primary Care Physic kedar [place] [facility] [place] Date(s): 12/17/22 - 01/16/23 [facility] [address] [place] [address]- Allergies, Adverse Reactions, Alerts No Known Allergies [...] Physician Member Role: PCP Address: Address: [address] [place] [address]- Care Team Related Persons Name: RIVERA GARCIA Name: JAMAL RICARDO Address: [address] [place] [address] Name: ANGEL KWAN Address: [address] [place] [address]
--- OUTSIDE RECORDS SUMMARY | 2024-05-15 06:30 | XMS_ITS | Continuity of Care Document ---
Author Organization [facility] Address [address] [place] [address]- Care Team Providers Care Assistant Restaurant General Manager Name Role Phone Girma Baer MD Primary Care Physic kedar Encounter 07/02/23 - 07/14/23 [facility] [address] [place] [address]- Discharge Disposition: GOALS MET Allergies, Adverse Reactions, Alerts No Known Allergies Medications citalopram 20 mg oral tablet TAKE 1 TABLET BY MOUTH DAILY Start Date: 06/22/23 Status: Ordered ibuprofen 800 mg oral tablet TAKE 1 TABLET BY MOUTH EVERY 8 HOURS NEEDED FOR PAIN Start Date: 06/22/23 Status: Ordered Mastectomy Bra See Instructions, # 6 each, Refills 1, Tot. Refills 1, Maintenance, DX: history of right breast cancer, breast asymmetry, 06/17/22 17:52:00 EST, Supply Start Date: 06/17/22 Status: Ordered Mastectomy Prosthesis See Instructions, # 1 each, Refills 1, Tot. Refills 1, Maintenance, DX: history of right breast cancer, breast asymmetry, 06/17/22 17:53:00 EST, Supply Start Date: 06/17/22 Status: Ordered Problem List Condition Confirmation Course Effective Dates Status Health St atus Informant Carcinoma in Situ of Breast Confirmed Active Spinal stenosis of lumbar region Confirmed Active Urinary tract infectious disease Confirmed Active Seroma Confirmed Active Social History Social History Type Response Smoking Status Current every day ct williamson entered on: 09/20/14 Sex Patient Care team information Care Team Personnel Name: Gissell Payan LPN Position: S RN Member Role: Primary Care Nurse Name: Stephenie Antoine RN Position: S RN Member Role: Primary Care Nurse Name: Phuong Wolfe Position: S RN Member Role: Primary Care Nurse Name: Girma Baer MD Echavarria Position: Reference Physician Member Role: PCP Address: Address: [address] [place] [address]- Care Team Related Persons Name: RIVERA GARCIA Name: JAMAL RICARDO Address: [address] [place] [address] Name: ANEGL KWAN Address: [address] [place] [address]
--- OUTSIDE RECORDS SUMMARY | 2024-05-15 06:30 | XMS_ITS | Continuity of Care Document ---
Author Organization [facility] Address [address] [place] [address]- Care Team Providers Care Renderer Name Role Phone Buffy BANGURA, Girma Echavarria Primary Care Physic kedar [place] [facility] [place] [facility] [place]13[place]21 - 12[place]13/21 [facility] [address] [place] [address]- Attending Physician: Dayne Busby Admitting Physician: Dayne [...] 8 hours Start Date: 01/22/15 Status: Ordered Vitamin D3 By Mouth, Daily, [...]
--- OUTSIDE RECORDS SUMMARY | 2024-05-15 06:30 | XMS_ITS | Continuity of Care Document ---
Author Organization [facility] ter Address [address] [place] [id number]- Care Team Providers Care Drill Runner Name Role Phone Buffy BANGURA, Girma Echavarria Primary Care Physic kedar Encounter [facility] Date(s): 06/30/23 - 07/01/[address] [address]- Discharge Disposition: A-Transfer VNA/Home Health Attending Physician: Edward Vazquez MD Admitting Physician: Edward Vazquez MD Referring Physician: Edward Vazquez MD Allergies, Adverse Reactions, Alerts No Known Allergies [...] EST, Supply Start Date: 06/17/22 Status: Ordered oxyCODONE 5 mg oral tablet 5 mg, Tablet, By Mouth, Every 6 hours, PRN for Pain , Severe, Routine, 06/29/23 7:44:00 EST Start Date: 06/29/23 Stop Date: 07/02/23 Status: Discontinued oxyCODONE 5 mg oral tablet See Instructions, PRN, 1 tablet By Mouth Every 4-6 hours, # 42 tablet, Refills 0, Tot. Refills 0, Acute 07/06/23 7:15:00 EST, as needed for pain, 06/29/23 7:14:00 EST, Instructions Replace Required Details, Route to Pharmacy Electronically, [facility]... 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 Spinal stenosis of lumbar region Confirmed Active Urinary tract infectious disease Confirmed Active Seroma Confirmed Active Procedures Procedure Date Related Diagnosis Body Site Status Arthrodesis, posterior or po sterolateral technique, single interspace; lumbar (with lateral transverse technique, when performed) Completed Results Radiology Reports * Exam Date Time Procedure Performing Provider Status 06/29/23 10:46 AM C-Arm > 1 Hour Karina Alcala (Verified) Notes: (C-Arm > 1 Hour) Reason For Exam: spinal stenosis RESULT: C-Arm > 1 Hour Lumbar Spine 2 or 3 Views, C-Arm > 1 Hour INDICATION: spinal stenosis. COMPARISONS: MRI lumbosacral spine with and without contrast dated 05/29/2023. TECHNIQUE: Fluoroscopy support was provided. There was no radiologist in attendance. FLUOROSCOPY TIME: 33 seconds EXPOSURE: 19.94 mGy (reference air kerma) TECHNOLOGIST TIME: 1 hour 10 minutes FINDINGS: 2 intraoperative fluoroscopic images were obtained during TLIF at L3-L4. IMPRESSION: See above. Please refer to operative report for complete findings and procedural narrative. I have personally reviewed the images and I agree with this report. WSN: [id number] Ordering Physician: Edward Vazquez Dictated By: Emeka Mojica MD Dictated Date/Time: 06/29/23 4:22 pm Reviewed By: Bebo Burton MD, V Signed By: Bebo Burton MD, V Signed Date/Time: 06/29/23 4:27 pm Transcribed By: ANDRIA Transcribed Date/Time: 06/29/23 3:50 pm * Exam Date Time Procedure Performing Provider Status 06/29/23 10:46 AM Lumbar Spine 2 or 3 Views Col leslie Alcala; Timmy Notes: (Lumbar Spine 2 or 3 Views) Reason For Exam: spinal stenosis RESULT: Lumbar Spine 2 or 3 Views Lumbar Spine 2 or 3 Views, C-Arm > 1 Hour INDICATION: spinal stenosis. COMPARISONS: MRI lumbosacral spine with and without contrast dated 05/29/2023. TECHNIQUE: Fluoroscopy support was provided. There was no radiologist in attendance. FLUOROSCOPY TIME: 33 seconds EXPOSURE: 19.94 mGy (reference air kerma) TECHNOLOGIST TIME: 1 hour 10 minutes FINDINGS: 2 intraoperative fluoroscopic images were obtained during TLIF at L3-L4. IMPRESSION: See above. Please refer to operative report for complete findings and procedural narrative. I have personally reviewed the images and I agree with this report. WSN: [id number] Ordering Physician: Edward Vazquez Dictated By: Emeka Mojica MD Dictated Date/Time: 06/29/23 4:22 pm Reviewed By: Bebo Burton MD, V Signed By: Bebo Burton MD, V Signed Date/Time: 06/29/23 4:27 pm Transcribed By: ANDRIA Transcribed Date/Time: 06/29/23 3:50 pm Vital Signs Most recent to oldest [Reference Range]: 1 2 3 Height 155 cm (07/01/23 10:50 AM) 155 cm (07/01/23 9:03 AM) 155 cm (07/01/23 6:46 AM) Weight 56.9 kg (06/29/23 6:21 AM) 58 kg (06/22/23 3:50 PM) Oxygen Saturation [94-100 %] 93 % *L* (07/01/23 12:00 PM) 94 % (07/01/23 10:50 AM) 95 % (07/01/23 10:00 AM) Pulse Rate [55-90 bpm] 75 bpm (07/01/23 12:00 PM) 65 bpm (07/01/23 10:50 AM) 70 bpm (07/01/23 6:46 AM) Body Mass Index [18.5-24.99 kg/m2] 23.68 kg/m2 (06/29/23 6:21 AM) 24.14 kg/m2 (06/22/23 3:50 PM) Blood Pressure [90-138/55-84 mm Hg] 115/60mm Hg (07/01/23 12:00 PM) 99/59mm Hg (07/01/23 10:50 AM) 93/60mm Hg (07/01/23 6:46 AM) Respiratory Rate [16-30 br/min] 18 br/min (07/01/23 12:03 PM) 19 br/min (07/01/23 10:50 AM) 18 br/min (07/01/23 7:15 AM) Temperature [96.8-100.4 DegF] 98.1 DegF (07/01/23 12:00 PM) 98.2 DegF (07/01/23 10:50 AM) 97.9 DegF (07/01/23 6:46 AM) Liters per Minute 2 L/min (07/01/23 6:46 AM) 2 L/min (07/01/23 4:07 AM) 2 L/min (06/30/23 11:24 PM) Mode of Delivery (Oxygen) Room air (07/01/23 12:00 PM) Room air (07/01/23 10:50 AM) Room air (07/01/23 10:00 AM) Blood pressure sites Arm, right (07/01/23 12:00 PM) Arm, left (07/01/23 10:50 AM) Arm, right (07/01/23 6:46 AM) Temperature Route Oral (07/01/23 12:00 PM) Oral (07/01/23 10:50 AM) Oral (07/01/23 6:46 AM) Dry Weight 56.9 kg (06/29/23 6:21 AM) 58 kg (06/22/23 3:50 PM) Weight Obtained Via Patient/family state d (06/22/23 3:50 PM) Dry Weight Obtained Via Standing scale (06/29/23 6:21 AM) Patient/family stated (06/22/23 3:50 PM) Social History Social History Type Response Smoking Status Current every day ct williamson entered on: 09/20/14 Sex Hospital Progress note * Brittany Candelaria LPN: SIGN, VERIFY, PERFORM Event Display: Progress Note Hospital Authored Date: [id number] Patient: GINA RICARDO Age: 67 years Sex: Female : 1955 Associated Diagnoses: None Author: Brittany Candelaria LPN Findings Problem Related to Alteration in Comfort : Alteration in Comfort/new 07/01/2023 8:00 EST Alteration in Comfort Related to Surgery Goals & Outcomes: Comfort Pt will report acceptable level of comfort & pain control, Pt will state importance of adhering to pain strategy regime, Pt will demonstrate necessary skills to manage pain, Non-verbal indicators will indicate comfort/pain control Interventions Implemented: Comfort Assess pain using appropriate pain scale/tools, Assess aggravating factors & prevent them accordingly, Assess alleviating factors & promote them accordingly Goals/Interventions, Comfort Yes Comfort, Problem Start 06/29/2023 18:00 Reviewed plan with, Comfort Patient Patient Progression, Comfort Pt progressing according to plan Comfort, Problem Ongoing Yes . Alteration in Musculoskeletal : Alteration in Musculoskeletal Func/new 07/01/2023 8:00 EST Alteration in Musculoskeletal Related to Orthopedic Procedure, Other: back surgery Goals & Outcomes, Musculoskeletal Pt able to perform ADL's to best of ability, Pt demonstrates precautions/exercise/ transfers per protocol, Pt will ambulate safely with assistive device, Pt willbe free from complications of immobility, Pt will demonstrate ability to participate in ADL's, Pt will report acceptable level of comfort/pain relief Interventions, Musculoskeletal Monitor patients ambulation status, monitor Color/Motion/Sensation, Assist with repositioning, Encourage deep breathing & coughing exercises, Teach & Encourage use of Incentive spirometer Goals/Interventions, Musculoskeletal Yes Musculoskeletal, Problem Start 06/29/2023 18:00 Reviewed Plan with, Musculoskeletal Patient Patient Progression, Musculoskeletal Pt progressing according to plan . Pt is A&Ox4, independent, VSS, +CMS . pt complains of lower back pain with movement PO Oxycodone 5mg given. pt denied CP, SOB, dizziness, nausea, ARCHIBALD, chills, numbness or tingling of extremities. ALISON drain was removed by Dr Vazquez, pt has small serosanguineous drainage the dressing was reinforced.call curtis within reach. will continue monitoring, maintaining comfort and safety. Nursing Data Vital Signs : VITAL SIGNS SECTION 07/01/2023 10:50 EST Early Warning Score 3.00 07/01/2023 10:50 EST Temperature 98.2 DegF Temperature Route Oral Pulse Rate 65 bpm Respiratory Rate 19 br/min Systolic Blood Pressure 99 mm Hg Diastolic Blood Pressure 59 mm Hg Blood pressure sites Arm, left Mean Arterial Pressure 72 mm Hg Pulse Pressure 40 mm Hg Oxygen Saturation 94 % Mode of Delivery (Oxygen) Room air . Discharge Information Rehabilitation Discharge : Rehab Discharge Index 07/01/2023 9:09 EST Comments on treatment indicated Pt appropriate for DC to friend's home with services using RW. Walker: distance >50 Full chart review completed Yes Hospital course Posterior revision laminotomy decompression L3-L4 with previous hardware removal and extension of fusion from the L4 to the sacrum to the L3-L4 level. Other findings Received amb in [facility] with IV pole. No TLSO. Pt given RW and amb 105' with S. No LOB,fatigue or SOB. Mild pain throughout. Pt returned to room, educated on TLSO and spinal precuations.Pt completed sit-supine CGA with VC/TC for log rolling. Greater pain * Edward Vazquez MD: PERFORM, SIGN, VERIFY Event Display: Progress Note Hospital Authored Date: Patient: GINA RICARDO Age: 67 years Sex: Female : 1955 Associated Diagnoses: None Author: Edward Vazquez MD Health Status Problem list All Problems Carcinoma in Situ of Breast / ICD-9-CM 233.0 / Confirmed Urinary tract infectious disease / SNOMED CT 352651765 / Confirmed Seroma / SNOMED CT 706068474 / Confirmed Allergies Allergic Reactions (Selected) NKA Patient With a good appetite. Ambulating to bathroom. Ambulating in hallway. Voiding spontaneously. Incision pain is improved Results Review Vital Signs Vitals 07/01/2023 6:46 EST Temperature 97.9 DegF Pulse Rate 70 bpm Respiratory Rate 18 br/min Systolic Blood Pressure 93 mm Hg Diastolic Blood Pressure 60 mm Hg Physical Examination Motor Exam intact distally. Incision Appears clean, dry, and intact. Impression and Plan Plan for D/C home when ambulating and eating * Gissell Pyaan LPN: PERFORM, SIGN, VERIFY Event Display: Progress Note Hospital Authored Date: [id number] Patient: GINA RICARDO Age: 67 years Sex: Female : 1955 Associated Diagnoses: None Author: Gissell Payan LPN Ms. Bardales reported her pain to be worse than yesterday. Utilizing PRN pain meds w/pos effect. denies any numbness or tingles to extremities. +CMS intact. reported feeling dizzy x1 earlier in the day and having a slight ARCHIBALD. Her nausea improved w/Zofran. she had a low grade temp 99.2 at start of shift and c/o chills. no edema to extremities. pt has been ambulating and voiding w/no issues. pain isworse w/movement. ALISON drain intact. small amount of fluid, red blood. DSD intact. minimal shadowing visible. oxygen has been utilized throughout he shift. Pt has been in low 90's on 2 liters and dropping down into high 80'2 when on RA. LCTA. Cough @ baseline. MOM given for constipation. hypoactive bowel sounds present. denies nausea or vomiting during shift. call curtis w/in reach. Findings Problem Related to Alteration in Comfort : Alteration in Comfort/new 07/01/2023 3:00 EST Alteration in Comfort Related to Surgery Goals & Outcomes: Comfort Pt will report acceptable level of comfort & pain control, Pt will state importance of adhering to pain strategy regime, Pt will demonstrate necessary skills to manage pain, Non-verbal indicators will indicate comfort/pain control Interventions Implemented: Comfort Assess pain using appropriate pain scale/tools, Assess aggravating factors & prevent them accordingly, Assess alleviating factors & promote them accordingly Goals/Interventions, Comfort Yes Comfort, Problem Start 06/29/2023 18:00 Reviewed plan with, Comfort Patient Patient Progression, Comfort Plan Initiation Comfort, Problem Ongoing Yes . Alteration in Musculoskeletal : Alteration in Musculoskeletal Func/new 07/01/2023 3:00 EST Alteration in Musculoskeletal Related to Orthopedic Procedure, Other: back surgery Goals & Outcomes, Musculoskeletal Pt able to perform ADL's to best of ability, Pt demonstrates precautions/exercise/ transfers per protocol, Pt will ambulate safely with assistive device, Pt willbe free from complications of immobility, Pt will demonstrate ability to participate in ADL's, Pt will report acceptable level of comfort/pain relief Interventions, Musculoskeletal Monitor patients ambulation status, Encourage deep breathing & coughing exercises, Notify MD immediately if tissue perfusion deteriorates, Obtain assistive devices as needed, Teach & Encourage use of Incentive spirometer, Teach Pt/caregiver on ADL's & adaptive equipment, Teach pt/caregiver on use of pain scale, Teach Pt/caregiver complications of immobili ty, Teach Pt/caregiver techniques to increase mobility, Teach Pt/caregiver on safety precautions Goals/Interventions, Musculoskeletal Yes Musculoskeletal, Problem Start 06/29/2023 18:00 Reviewed Plan with, Musculoskeletal Patient Patient Progression, Musculoskeletal Plan Initiation . Note * Stephenie Antoine RN: PERFORM Event Display: Discharge/Transfer Note Hospital Authored Date: [id number] Nursing Discharge Note Entered On: 07/01/2023 14:06 EST Performed On: 07/01/2023 14:05 EST by Stephenie Antoine RN Nursing Discharge Note 2 Discharge Time : 07/01/2023 14:24 EST Stephenie Antoine RN - 07/01/2023 14:39 EST Discharge Level of Care at Discharge : Homehealth/VNA Discharge VNA/Hospice/Home Care(v001) : [facility] [phone] Patient Left Unit Via : Wheelchair Patient Accompanied Off Unit with : Responsible adult, Other: STAFF DC Instructions Provided & Signed by Pt : Yes Patient Understands D/C Instructions : Yes Patient Instructions Discharge Signed : Yes Did Pt have Specialty Bed or Wound Vac : No Stephenie Antoine RN - 07/01/2023 14:05 EST * Stephenie Antoine RN: PERFORM Event Display: Patient Education/Instruction Authored Date: [id number] Inpatient Adult Discharge Instructions [address] [id number] Name: GINA RICARDO : 1955 Visit: 06/30/2023 17:33:00 Current Date: 07/01/2023 14:07 Account: [id number] Inpatient Adult Discharge Instructions We would like to thank you for allowing us to assist you with your healthcare needs. The following includes patient education materials and information regarding your injury/illness. Our entire staffstrives to provide an excellent experience for our patients and their families. PLEASE ENSURE YOU FOLLOW-UP PER THE INSTRUCTIONS BELOW! ?? YOUR OPINION IS IMPORTANT TO US! Please complete the survey you may receive by mail or email. Your feedback will be used to make improvements to the healthcare experiences of our patients and their families. Surveys are administered by [employer] ?? If further treatment with your primary care physician or another doctor is recommended, it is important for you to keep the appointment. Call your primary care physician or return to the Emergency Department immediately if your condition worsens, fails to improve, or new symptoms develop. If you need to find a doctor, you can call [facility] for a referral at [phone] or toll free at [phone] or log in to [email or web address].. ?? [facility], in keeping with [facility] guidance, no longer requires face masks for staff, patientsor visitors in most situations. Similiar to time spent indoors at other locations, there is the chance that you were exposed to repiratory viruses during your time with us (such as flu or COVID-19). If you develop symptoms concerning for a viral respiratory infection, please seek testing (and treatment if indicated) from your medical provider or home test kit. ?? You can view and manage your care through the patient portal or by using a health care tadeo of your choosing. [employer] is a website that allows you to securely view your medical information including your hospital discharge summary, office visit summaries, medications and follow-up visits. You can also request appointments, renew medications, and request access to your medical information using a health care tadeo of your choosing, or just ask a question. You can enroll at [email or web address] or register during your next office visit. You have been discharged from [facility], Patient Care Unit: S3. If you have any questions regarding these instructions after you leave, please call us and we will be happy to assist you. [facility] Your Care Team Attending Physician Edward Vazquez MD Discharging Providers Edward Vazquez MD Reason for Admission SPINAL STENOSIS 23HR Your Diagnosis Lumbar spinal stenosis Tests Performed Below is a partial list of the tests performed during your hospitalization. You may have had other tests and procedures not included in this list. Please discuss all test results with your provider. CBC XR C-Arm > 1 Hour XR Lumbar Spine 2 or 3 Views Primary Care Provider Girma Baer MD Advance Directive Health Care Proxy on File No Discharge Vitals Temperature: 98.1 DegF Height: 155 cm Pulse Rate: 75 bpm Weight: 56.9 kg Respiratory Rate: 18 br/min Body Mass Index: 23.68 kg/m2 Systolic Blood Pressure: 115 mm Hg Body surface area: 1.57 Diastolic Blood Pressure: 60 mm Hg ?? Oxygen Saturation:??93 %??Low ?? Studies Pending All tests and labs ordered during this hospital stay have been completed unless listed below. Please discuss all pending results with your provider listed above in these instructions. ?? CBC What to do next Instructions From Your Doctor Discharge Orders You Need to Schedule the Following Appointments Follow Up with??As Needed Follow Up with??Buffy BANGURA, Girma Echavarria Where: [address] [place] [address]- Discharge Medications GINA RICARDO :1955 Visit Date:06/30/2023 Medications: Please continue your medications until treatment is completed or stopped by your provider. Medications not listed below should be discontinued. Discuss any questions related to medications with your provider. What How Much When Instructions Next Dose Unchanged Citalopram (citalopram 20 mg oral tablet) TAKE 1 TABLET BY MOUTH DAILY ?? 9am 07/02 Unchanged Durable Medical Equipment (Mastectomy Bra) See instructions DX: history of right breast cancer, breast asymmetry ?? see instruction Unchanged Durable Medical Equipment (Mastectomy Prosthesis) See instructions DX: history of right breast cancer, breast asymmetry ?? see instruction Unchanged Ibuprofen (ibuprofen 800 mg oral tablet) TAKE 1 TABLET BY MOUTH EVERY 8 HOURS NEEDED FOR PAIN ?? as needed Unchanged Oxycodone (oxyCODONE 5 mg oral tablet) See instructions 1 tablet By Mouth Every 4-6 hours, As needed for as needed for pain ?? Pickup at [place] [address] as needed Pharmacy Information [facility] [address]: [address] [place], [place] [id number] [phone] Test Results Below is a partial list of the most recent Laboratory test results done prior to this discharge. You may have had other tests and procedures not included in this list. Please discuss all test resultswith your provider. CBC (07/01/2023) ???WBC - 9.0 k/mm3???RBC - 2.95 m/mm3???Hgb - 10.0 Gm/dL???Hct - 29.1 %???MCV - 98.6 femtoliters???MCH - 33.9 pg???MCHC - 34.4 g/dL???Platelet Count - 200 k/mm3???RDW-SD - 47.4 femtoliters???MPV - 10.7 femtoliters???Nucleated RBC (Automated) - 0.0 #/100 WBC'S???Abs. NRBC - 0.0 k/mm3 Allergies (NKA means No Known Allergies) NKA Problems Active Problems??(3) Carcinoma in Situ of Breast?? Seroma?? Urinary tract infectious disease?? Education Materials Below is the list of Educational Leaflet Providered with your Discharge Instructions. Spinal Stenosis?? Valuables and Belongings I fully understand and agree that [facility] accepts no responsibility for all my personal property including clothing, toilet articles, radios, jewelry, dentures, hearing aids, rings, money, or any other property that is in my possession or is brought to me after admission. I understand certain valuables may be placed in a hospital safe for a short period of time. I understand that the hospital is not liable for loss or damage due to accident, fire, or other natural occurrence while said property is in the safe. I accept full responsibility for any personal property that I keep with me, and will not hold the hospital responsible in case of loss or disappearance. I acknowledge that i have been encouraged to send valuables and belongings home. ?? Review of Valuable and Belonging List: With patient Disposition of Belongings: Other: PACU Date for Pt to Sign Valuables/Belongings: 07/01/23 13:01:00 ?? Other Discharge Information ? Case Management Discharge Plan?? Discharge Plan?? Discharge Agency Information?? Discharge Level of Care at Discharge: Homehealth/VNA Name of Agency #1: [facility] Discharge VNA/Hospice/Home Care: [facility] [phone] Agency Merchandise Manager #1: [phone] ?? Service Categories #1: Occupational Therapy, Physical Therapy ?? Service Comments #1: VNA ??will call to arrange visit within 1-2 days. ?? Call with any questions or concerns [phone] ?? Pulmonary Rehab Status?? Pulmonary Rehab Discharge Status?? Respiratory Rate: 18 br/min ? Common Emergency Awareness Tips IS IT A STROKE? Act FAST and Check for these signs: FACE Does the face look uneven? ARM Does one arm drift down? SPEECH Does their speech sound strange? TIME Call at any sign of stroke ?? Heart Attack Signs Chest discomfort: Most heart attacks involve discomfort in the center of the chest and lasts more than a few minutes, or goes away and comes back. It can feel like uncomfortable pressure, squeezing, fullness or pain. Discomfort in upper body: Symptoms can include pain or discomfort in one or both arms, back, neck, jaw or stomach. Shortness of breath: With or without discomfort. Other signs: Breaking out in a cold sweat, nausea, or lightheaded. Remember, MINUTES DO MATTER. If you experience any of these heart attack warning signs, call to get immediate medical attention! ?? Smoking can increase your chances of developing chronic health problems and can cause harmful effects to other family members in your house. If you smoke, you are strongly encouraged to quit. Please call [facility] [employer] Link at [phone] or [phone] ([phone]) or log in to [email or web address] for referrals to smoking cessation programs. ?? 978 Suicide & Crisis Lifeline is available 11/01 if you or someone you know needs to find a reason to keep living. By calling 314 you'll be connected to a skilled, trained counselor at a crisis center in your area. INPATIENT DISCHARGE INSTRUCTIONS SIGNATURE PAGE HALEIGHGINA WOLF Location:[facility] Registration Date and Time:06/30/2023 17:33 EST Primary Care Physician: Buffy BANGURA, Girma Echavarria, Attending Physician: Edward Vazquez MD, I GINA RICARDO, have received the above patient education materials/instructions and have verbalized understanding. If ambulance or transport services are being used I further acknowledge being given a choice of service. ?? If you need to contact me, please call me at this number: . Patient/Poultry Farm Supervisor Name: Patient/Poultry Farm Supervisor Signature: Relationship to Patient: Witness Name/Signature: Date: * Stephenie Antoine RN: PERFORM Event Display: Patient Education Leaflets Authored Date: [id number] Spinal Stenosis ?? Spinal Stenosis - Video Spinal stenosis is a condition in which the spinal canal narrows and pinches the nerves, resulting in back and leg pain. Spinal stenosis often occurs in older adults, although younger people who are born with a small spinal canal may also develop symptoms. This video explains the condition and whattreatments are recommended. To view the video go to this web address: [email or web address] Or, scan this QR code with your smart phone Last Reviewed Date: 2019 ?? [employer]. All rights reserved. This information is not intended as a substitute for professional medical care. Always follow your healthcare professional's instructions. ?? Patient Care team information Care Team Personnel Name: Gissell Payan LPN Position: LOWS RN Member Role: Primary Care Nurse Name: Stephenie Antoine RN Position: LOWS RN Member Role: Primary Care Nurse Name: Phuong Wolfe Position: S RN Member Role: Primary Care Nurse Name: Buffy BANGURA, Girma Echavarria Position: Reference Physician Member Role: PCP Address: Address: [address] [place] [address]- Care Team Related Persons Name: RIVERA GARCIA Name: JAMAL RICARDO Address: [address] [place] [address] Name: ANGEL KWAN Address: [address] [place] [address]
--- OUTSIDE RECORDS SUMMARY | 2024-05-15 06:30 | XMS_ITS | Continuity of Care Document ---
Author Organization [facility] Address [address] [place] [address]- Care Team Providers Care Help Desk Operator Name Role Phone Buffy BANGURA, Girma Echavarria Primary Care Physic kedar [place] [facility] [place]22 [facility] [address] [place] [address]- Allergies, Adverse Reactions, Alerts No Known Allergies [...]
--- OUTSIDE RECORDS SUMMARY | 2024-05-15 06:30 | XMS_ITS | Continuity of Care Document ---
Author Organization [facility] Address [address] [place] [address]- Care Team Providers Care Sports Medicine Trainer Name Role Phone Girma Baer MD Primary Care Physic kedar [place] [facility] [place]/21 [facility] [address] [place] [address] Attending Physician: Syeda Ray MD Admitting Physician: Syeda Ray MD Referring Physician: Girma Baer MD Allergies, Adverse Reactions, Alerts No Known [...]
--- OUTSIDE RECORDS SUMMARY | 2024-05-15 06:30 | XMS_ITS | Continuity of Care Document ---
Author Organization [facility] Address [address] [place] [address]- Care Team Providers Care Director Of Plant Operations Name Role Phone Buffy BANGURA, Girma Echavarria Primary Care Physic kedar [place] [facility] [place]15[place]20 - 02/12/21 [facility] [address] [place] [address]- Attending Physician: Nedra Monteiro MD Admitting Physician: Nedra Monteiro MD Referring Physician: Not on Staff, Referring MD Allergies, Adverse Reactions, Alerts Substance Reaction [...]
--- OUTSIDE RECORDS SUMMARY | 2024-05-15 06:30 | XMS_ITS | Continuity of Care Document ---
Author Organization [facility] Address [address] [place] [address]- Care Team Providers Care Sow Farm Barn Technician Name Role Phone Buffy BANGURA, Girma Echavarria Primary Care Physic kedar [place] [facility] [place]/01/23 - 07/31/[address] [address]- Attending Physician: Not on Staff, Attending MD Admitting Physician: Not on Staff, Admitting MD Referring Physician: Not on Staff, Referring MD Allergies, Adverse Reactions, Alerts No Known [...] PCP Address: Address: [address] [place] [address]- Care Team Related Persons Name: RIVERA GARCIA Name: JAMAL RICARDO Address: [address] [place] [address] Name: ANGEL KWAN Address: [address] [place] [address]
--- OUTSIDE RECORDS SUMMARY | 2024-05-15 06:30 | XMS_ITS | Continuity of Care Document ---
Author Organization [facility] Address [address] [place] [address]- Care Team Providers Care Mission Assessment Specialist Name Role Phone Buffy BANGURA, Girma Echavarria Primary Care Physic kedar En[place] [facility] [place] 01/17/20 - 02/25/[address] [address]- [facility] Attending Physician: Venita Paz NP Admitting Physician: Jackson BARON, Venita Referring Physician: Venita Paz NP Allergies, Adverse Reactions, Alerts Substance Reaction Severity [...]
--- OUTSIDE RECORDS SUMMARY | 2024-05-15 06:30 | XMS_ITS | Continuity of Care Document ---
Author Organization [facility] Address [address] [place] [address]- Care Team Providers Care Honing Machine Operator Production Name Role Phone Buffy BANGURA, Girma Echavarria Primary Care Physic kedar En[place] [facility] [place] Date(s): 01/15/20 - 02/14/20 [facility] [address] [place] [address]- [facility] Attending Physician: Dayne Busby Admitting Physician: Dayne [...]
[2024-05-15 06:52] VITALS: BP 128/68; PULSE 69; RESP 16; TEMP 37.4; O2SAT 92
[2024-05-15] MEDS: Tetracaine HCl/PF 0.5% Oph Sol 4 ML DROPS 1 DROP EYE-RIGHT (07:30)
[2024-05-15 07:31] VITALS: BMI 22.1
[2024-05-15] MEDS: Cyclopentolate 1 % Ophth Sol 2 ML DRPBTL 1 DROP EYE-RIGHT ×3 (07:31→07:47)
[2024-05-15] MEDS: Tropicamide 1 % Ophth Sol 3 ML BTL 1 DROP EYE-RIGHT ×3 (07:33→07:49)
[2024-05-15] MEDS: Ketorolac Tromethamine 0.5% Op 10 ML DROPS 1 DROP EYE-RIGHT ×3 (07:35→07:51)
[2024-05-15] MEDS: Phenylephrine HCL 2.5% Oph SoL 2 ML BOTTLE 1 DROP EYE-RIGHT ×3 (07:37→07:53)
--- NOTE | 2024-05-15 07:52 | MHC.SHP ---
Pre-Procedural Eval Section A - 24 Hr Update-Section A only Date of Service: 05/15/24 The patient is an INPATIENT: No Changes since office visit: No Cold of Flu in the past 2 weeks, No New Medical Problems, No Changes in Medication and No Patient answered all questions The patient has been examined within 24 hours of the surgical procedure. The History & Physical has been completed within 30 days and I have reviewed it.: Yes Section B - Complete if H&P > 30 days Chief Complaint: Age-related nuclear cataract, right eye Allergies: Allergies Allergy/AdvReac Type Severity Reaction Status Date / Time No Known Allergies Allergy Verified 05/15/24 07:32 Plan Diagnosis/Plan: Unchanged I have reviewed the history and physical and performed a pertinent physical examination on my patient. No changes have occurred unless specified. Time Spent With Patient Time: Total time managing care of this patient today ____ minutes.
--- NOTE | 2024-05-15 07:53 | HO.PNOPHT ---
Ophthalmology Procedure Procedure Date of Service: 05/15/24 Ophthalmology Viscoelastic: Healon Duet Dual Pack Pro Ophthalmology Lenses: IOL Acrysof MP - MA60AC (24.5) Procedure Notes: PREOPERATIVE DIAGNOSIS: Decreased visual acuity right eye secondary to cataract POSTOPERATIVE DIAGNOSIS: Same PROCEDURE: Right cataract extraction with intraocular lens insertion SURGEON: Sumanth Cesar M.D. ANESTHESIA: Topical ESTIMATED BLOOD LOSS: None COMPLICATIONS: None After obtaining informed consent, the patient was brought to the operating room suite and placed in the supine position. After adequate sedation per anesthesia, topical drops of Tetracaine were given to the right eye. The eye was then prepped and draped in the usual sterile fashion. The operating room microscope was then positioned over the operative eye and a lid speculum placed. A paracentesis was created. Viscoelastic was then instilled into the anterior chamber. A three plane incision was then created temporally, utilizing a 2.85 mm keratome. Capsulotomy forceps were then utilized to create a circular tear capsulotomy. Hydrodissection and hydrodelineation were carried out until adequate mobilization of the nucleus occurred. Phacoemulsification was then utilized to remove the dense central nucleus followed by removal of the cortical material utilizing the automated aspiration irrigation unit. Viscoelastic was instilled into the posterior capsular bag followed by placement of a posterior chamber intraocular lens without difficulty. The residual Viscoelastic was then removed utilizing the automated IA machine. The wound was checked and found to be watertight. The patient tolerated the procedure well and the lid speculum was removed. Intracameral injection of Vigamox 0.1 mL followed by a subtenon injection of Kenalog-40 0.2 mL were administered. The patient will be seen in the a.m.
--- NOTE | 2024-05-15 08:20 | PC.NURSE ---
Patient arrived to preop. SaO2 89-93%. No diagnosed pulmonary disease. Daily smoker with chronic smokers cough. Patient coughing profusely at bed, per her this is normal and when it starts it doesn't stop . Dr. Rodriguez at bedside and made aware of intermittent uncontrollable coughing fits and SaO2. Discussed this with patient. No new orders at this time, may proceed with surgery.
[2024-05-15 08:50] VITALS: BP 125/62; PULSE 69; RESP 20; TEMP 37.1; O2SAT 95
== END 2024-05-15 09:01 | disposition home or self-care (01) ==
PROVIDERS: PCP Internal Medicine; Visit Provider Ophthalmology
PROC: (CPT 66985; principal; 2024-05-15 08:00)
DX: H25.11 Age-related nuclear cataract, right eye (principal); H52.4 Presbyopia; H43.393 Other vitreous opacities, bilateral; H18.413 Arcus senilis, bilateral; H53.021 Refractive amblyopia, right eye; M81.0 Age-related osteoporosis without current pathological fracture; R73.01 Impaired fasting glucose; Z79.1 Long term (current) use of non-steroidal anti-inflammatories (NSAID); Z79.899 Other long term (current) drug therapy; Z98.890 Other specified postprocedural states; F17.210 Nicotine dependence, cigarettes, uncomplicated
CPT/HCPCS: 66984; J2003; J3301; V2630

== ENCOUNTER 2024-05-23 10:49 | Outpatient (AMB) | payer MEDICARE, MEDICAID, SELFPAY ==
--- NOTE | 2024-05-23 10:55 | A.OFFVIS_ITS ---
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 Apparently, she had an EKG because of preop for cataract and that showed abnormal findings and she is referred. She does not have any known cardiac issues like coronary disease myocardial infarction or cardiomyopathy or in fact any other cardiac concerns in the past. Chronic smoker and still smokes about 10 cigarettes a day. Within l imits of her activity, she does not have any clear-cut chest pain but does get short of breath which she thinks is because of her smoking. Last week she underwent cataract surgery on one eye, and there was no issue. Few months back, she had spinal surgery and that was also uneventful. However, she states she did not have any previous EKGs still this time. Hence we do not have anything for comparison. [facility] Medical History (Updated 05/23/24 @ 11:29 by Emeka Walter MD) History of COVID-19 Osteoporosis PONV (postoperative nausea and vomiting) Back pain Surgical History History of colonoscopy History of surgery History of eye surgery History of hysterectomy History of breast surgery History of appendectomy Family History Father Colon cancer Mother Cancer Brother No problems noted. Sister No problems noted. Daughter No problems noted. Daughter No problems noted. Family/Other Mental health disorder Substance use disorder Social History Household Members: None Housing: Other Do you presently have visiting nurse or other home services: No Alcohol intake: current Alcohol intake frequency: a few times a month Alcohol type: beer Patient Tobacco Use Status: Current everyday Tobacco user Tobacco use type: Cigarette Cigarette Packs Per Day: 0.5 Cigarettes Per Day: 10.0 e-Cigarette/Vaping Use: Never Used Second Hand Smoke Exposure: Yes Substance Use Type: Marijuana Advance Directives Date on File: 02/13/13 service: No Current occupational status: retired Cognitive needs: No Hearing needs: No Vision needs: No Review of Systems Const Denies chills, Denies daytime sleepiness, Denies fatigue, Denies fever(s), Denies poor appetite, Denies snoring, Denies stops breathing during sleep, Denies weakness, Denies weight gain and Denies weight loss Eyes Denies loss of vision ENT Denies dizziness and Denies hearing loss Card Denies chest pain, Denies irregular heart rhythm, Denies claudication, Denies leg edema, Denies lightheadedness, Denies palpitations, Denies dyspnea on exertion and Denies orthopnea Resp Denies cough, Denies excessive phlegm production, Denies dyspnea on exertion, Denies snoring and Denies wheezing GI Denies abdominal pain, Denies hematochezia, Denies change in bowel habits, Denies nausea and Denies vomiting Denies urinary frequency and Denies dysuria Musc Denies arthralgias, Denies muscle weakness, Denies numbness and Denies other Skin/Breast Denies nail changes and Denies rash Neuro Denies Abnormal speech present, Denies dizziness, Denies loss of vision, Denies memory loss, Denies numbness and Denies weakness Psych Denies depression and Denies memory loss Endo Denies fatigue and Denies palpitations Tc/Lymph Denies easy bruising Aller/Immun Denies wheezing Physical Exam Vital Signs: Last Vital Signs Pulse 95 05/23/24 10:56 BP 142/80 H 05/23/24 10:56 BMI result Body Mass Index 22.4 Const General: comfortable and no acute distress Orientation/consciousness: patient oriented x3 HEENT Other: Unremarkable Head: Yes normal to inspection Neck Neck: Yes normal visual inspection Chest Chest palpation & inspection: normal inspection of the chest Resp Auscultation: clear to auscultation bilaterally Cardio Palpation: normal PMI Heart sounds: S1 normal heart sound present, S2 normal heart sound present, no gallops, no murmurs and no rubs GI Palpation (GI): Soft to palpation Back/Spine/Pelvis Other: unremarkable Skin General skin exam: no rashes or lesions noted Neuro General: patient oriented x3 Speech: No Abnormal speech present Extrem General: Yes normal to inspection Psych Mental Status: mental status grossly normal Assessment & Plan Assessment & Plan (1) Abnormal EKG: Code(s): R94.31 - Abnormal electrocardiogram [ECG] [EKG] Category: Medical (2) Moderate cigarette smoker (10-19 per day): Code(s): F17.210 - Nicotine dependence, cigarettes, uncomplicated Category: Social Hx (3) SOB (shortness of breath): Code(s): R06.02 - Shortness of breath Category: Medical Plan In the recent EKG, there is clearly sinus rhythm in the 2nd half of the EKG. In the 1st part, a bit more tachycardic and could be sinus arrhythmia, but cannot exclude another rhythm like atrial tachycardia. Difficult to see as there is also some baseline artifact. There is downsloping STs anteriorly which could indicate right ventricular strain related to lung disease in her case, but cannot exclude anterior wall ischemia. We will pursue further workup with echocardiogram and stress test as she clearly has risk factors of chronic smoking with shortness of breath as well as an abnormal EKG. We will get a Holter monitor for assessing the rhythm issue further. However, she does not have any clear-cut palpitations. Follow-up after the above. Orders: Orders NM cardiolite stress test Today R07.2 - Precordial pain, R94.31 - Abnormal electrocardiogram [ECG] [EKG] CA echo transthoracic complete Today I25.10 - Atherosclerotic heart disease of [place] coronary artery without angina pectoris, R94.31 - Abnormal electrocardiogram [ECG] [EKG] CA stress test Today R07.2 - Precordial pain, R94.31 - Abnormal electrocardiogram [ECG] [EKG] ECG 3 day holter monitor Today I47.19 - Other supraventricular tachycardia Coding Level of Care Code New Pt Level 4 (33935) Diagnoses Abnormal EKG R94.31 Moderate cigarette smoker (10-19 per day) F17.210 SOB (shortness of breath) R06.02
[2024-05-23 10:56] VITALS: BP 142/80; PULSE 95; BMI 22.4
== END 2024-05-23 11:19 | disposition home or self-care (01) ==
PROVIDERS: PCP Internal Medicine; Visit Provider Internal Medicine
DX: R94.31 Abnormal electrocardiogram [ECG] [EKG] (principal); F17.210 Nicotine dependence, cigarettes, uncomplicated; R06.02 Shortness of breath
CPT/HCPCS: 99204

== ENCOUNTER → 2024-05-23 10:49 | Outpatient (BNVA) | payer MEDICARE, MEDICAID, SELFPAY | PROVIDERS: PCP Internal Medicine; Visit Provider Internal Medicine | DX: I25.10 Atherosclerotic heart disease of native coronary artery without angina pectoris (principal); I47.19 Other supraventricular tachycardia; R94.31 Abnormal electrocardiogram [ECG] [EKG]; R06.02 Shortness of breath; R07.2 Precordial pain; F17.210 Nicotine dependence, cigarettes, uncomplicated | CPT/HCPCS: 99202 ==

== ENCOUNTER 2024-05-29 06:54 | Day surgery (SDC) | payer MEDICARE, MEDICAID, SELFPAY ==
[2024-05-10 07:39] VITALS: BMI 22.7
[2024-05-29 07:35] VITALS: BP 131/78; PULSE 80; RESP 16; TEMP 36.7; O2SAT 92
[2024-05-29] MEDS: Tetracaine HCl/PF 0.5% Oph Sol 4 ML DROPS 1 DROP EYE-LEFT (07:37)
[2024-05-29] MEDS: Cyclopentolate 1 % Ophth Sol 2 ML DRPBTL 1 DROP EYE-LEFT ×3 (07:38→07:45)
[2024-05-29] MEDS: Tropicamide 1 % Ophth Sol 3 ML BTL 1 DROP EYE-LEFT ×3 (07:39→07:45)
[2024-05-29] MEDS: Ketorolac Tromethamine 0.5% Op 10 ML DROPS 1 DROP EYE-LEFT ×3 (07:42→07:46)
[2024-05-29] MEDS: Phenylephrine HCL 2.5% Oph SoL 2 ML BOTTLE 1 DROP EYE-LEFT ×3 (07:42→07:47)
--- NOTE | 2024-05-29 08:31 | MHC.SHP ---
Pre-Procedural Eval Section A - 24 Hr Update-Section A only Date of Service: 05/29/24 The patient is an INPATIENT: No Changes since office visit: No Cold of Flu in the past 2 weeks, No New Medical Problems, No Changes in Medication and No Patient answered all questions The patient has been examined within 24 hours of the surgical procedure. The History & Physical has been completed within 30 days and I have reviewed it.: Yes Section B - Complete if H&P > 30 days Chief Complaint: Age-related nuclear cataract, left eye Allergies: Allergies Allergy/AdvReac Type Severity Reaction Status Date / Time No Known Allergies Allergy Verified 05/15/24 07:32 Plan Diagnosis/Plan: Unchanged I have reviewed the history and physical and performed a pertinent physical examination on my patient. No changes have occurred unless specified. Time Spent With Patient Time: Total time managing care of this patient today ____ minutes.
--- NOTE | 2024-05-29 08:31 | HO.PNOPHT ---
Ophthalmology Procedure Procedure Date of Service: 05/29/24 Ophthalmology Viscoelastic: Healon Duet Dual Pack Pro Ophthalmology Lenses: IOL Acrysof MP - MA60AC (22.5) Procedure Notes: PREOPERATIVE DIAGNOSIS: Decreased visual acuity left eye secondary to cataract POSTOPERATIVE DIAGNOSIS: Same PROCEDURE: Left cataract extraction with intraocular lens insertion SURGEON: Sumanth Cesar M.D. ANESTHESIA: Topical ESTIMATED BLOOD LOSS: None COMPLICATIONS: None After obtaining informed consent, the patient was brought to the operation room suite and placed in the supine position. After adequate sedation per anesthesia, topical drops of Tetracaine were given to the left eye. The eye was then prepped and draped in the usual sterile fashion. The operating room microscope was then positioned over the operative eye and a lid speculum placed. A paracentesis was created. Viscoelastic was then instilled into the anterior chamber. A three plane incision was then created temporally, utilizing a 2.85 mm keratome. Capsulotomy forceps were then utilized to create a circular tear capsulotomy. Hydrodissection and hydrodelineation were carried out until adequate mobilization of the nucleus occurred. Phacoemulsification was then utilized to remove the dense central nucleus followed by removal of the cortical material utilizing the automated aspiration irrigation unit. Viscoat elastic was instilled into the posterior capsular bag followed by placement of a posterior chamber intraocular lens without difficulty. The residual Viscoat elastic was then removed utilizing the automated IA machine. The wound was check and found to be watertight. The patient tolerated the procedure well and the lid speculum was removed. Intracameral injection of Vigamox 0.1 mL followed by a subtenon injection of Kenalog-40 0.2 mL were administered. The patient will be seen in the a.m.
[2024-05-29 08:56] VITALS: BP 133/72; PULSE 49; RESP 17; TEMP 36.1; O2SAT 94
== END 2024-05-29 08:58 | disposition home or self-care (01) ==
PROVIDERS: PCP Internal Medicine; Visit Provider Ophthalmology
PROC: (CPT 66985; principal; 2024-05-29 08:30)
DX: H25.12 Age-related nuclear cataract, left eye (principal); H52.4 Presbyopia; H43.393 Other vitreous opacities, bilateral; H18.413 Arcus senilis, bilateral; H53.021 Refractive amblyopia, right eye; Z79.899 Other long term (current) drug therapy; F17.210 Nicotine dependence, cigarettes, uncomplicated
CPT/HCPCS: 66984; J2003; J3301; V2630

== ENCOUNTER 2024-06-22 10:13 | Outpatient (AMB) | payer MEDICARE, MEDICAID, SELFPAY ==
[2024-06-22 10:33] VITALS: BP 126/68; PULSE 84; O2SAT 93; BMI 21.8
--- NOTE | 2024-06-22 10:33 | A.OFFPC_ITS ---
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 Accompanied by: Self / Same As Patient Allergies No Known Allergies Allergy (Verified 06/22/24 10:37) Tobacco use date assessed: 06/22/24 Fall risk assessment: No Falls in past year Last assessed Fall Risk: 06/22/24 Dental Screening Dental Screen Date: 05/04/24 [facility] Medical History (Updated 05/23/24 @ 11:29 by Emeka Walter MD) History of COVID-19 Osteoporosis PONV (postoperative nausea and vomiting) Back pain Surgical History History of colonoscopy History of surgery History of eye surgery History of hysterectomy History of breast surgery History of appendectomy Family History Father Colon cancer Mother Cancer Brother No problems noted. Sister No problems noted. Daughter No problems noted. Daughter No problems noted. Family/Other Mental health disorder Substance use disorder Social History Household Members: None Housing: Other Do you presently have visiting nurse or other home services: No Alcohol intake: current Alcohol intake frequency: a few times a month Alcohol type: beer Patient Tobacco Use Status: Current everyday Tobacco user Tobacco use type: Cigarette Cigarette Packs Per Day: 0.5 Cigarettes Per Day: 10.0 e-Cigarette/Vaping Use: Never Used Second Hand Smoke Exposure: Yes Substance Use Type: Marijuana Advance Directives Date on File: 02/13/13 service: No Current occupational status: retired Cognitive needs: No Hearing needs: No Vision needs: No Questionnaire PHQ-9 Over the last 2 weeks, how often have you been bothered by any of the following problems? 1. Little interest or pleasure in doing things: not at all 2. Feeling down, depressed, or hopeless: several days 3. Trouble falling or staying asleep, or sleeping too much: several days 4. Feeling tired or having little energy: several days 5. Poor appetite or overeating: not at all 6. Feeling bad about yourself - or that you are a failure or have let yourself or your family down: not at all 7. Trouble concentrating on things, such as reading the newspaper or watching television: not at all 8. Moving or speaking so slowly that other people could have noticed. Or the opposite - being so fidgety or restless that you have been moving around a lot more than usual: not at all 9. Thoughts that you would be better off or of hurting yourself in some way: not at all Total score: 3 93957 - PHQ-9 Billing: Yes Source: Developed by Drs. Edward Atwood, Angelina Grant, Pietro Mcfadden and colleagues, with an educational sherin from [employer]. Thrive Questionnaire Date Thrive assessed: 06/22/24 I am a: Patient What is your living situation today?: I do not have a steady places to live I am temporarily staying with others Within the past 12 months, did the food you bought not last and you didn't have the money to get more?: I choose not to answer this question Within the past 12 months, did you worry whether your food would run out before you got money to buy more?: I choose not to answer this question Do you have trouble paying for medicines?: No Do you have trouble getting transportation to medical appointments?: No Do you have trouble paying your heating and electricity bill?: No Do you have trouble taking care of your child, family member or friend?: No Do you have trouble with day-to-day activities such as bathing, preparing meals, shopping, managing finances, etc.?: No Are you currently unemployed and looking for a job?: No Are you interested in more education?: No Please select the resources that you would like help with: None Currently or been in a relationship where the following occur: No concerns reported THRIVE Score: 1 AUDIT C Alcohol Use Questionnaire (AUDIT-C) 1. How often do you have a drink containing alcohol?: 2-3 times a week 2. How many drinks containing alcohol do you have on a typical day when you are drinking?: 1 or 2 3. How often do you have six or more drinks on one occasion?: Less than monthly Total Score: 4 ALEJANDRO-7 AMB Questionnaire ALEJANDRO-7 Date ALEJANDRO - 7 assessed: 06/22/24 Feeling nervous, anxious, or on edge: 1 = Several days Not being able to stop or control worryin = Several days Worrying too much about different things: 1 = Several days Trouble relaxin = Several days Being so restless that it is hard to sit still: 1 = Several days Becoming easily annoyed or irritable: 1 = Several days Feeling afraid as if something awful might happen: 0 = Not at all Total ALEJANDRO-7 score (0-4 normal; 5-9 mild; 10-14 moderate; 15-21 severe): 6 Source: Developed by Drs. Edward Atwood, Angelina Grant, Pietro Mcfadden and colleagues, with an educational sherin from [employer]. ALEJANDRO-7 Assessment Billing ALEJANDRO-7 Assessment Tool: ALEJANDRO-7 Assessment 18216 Physical exam (Primary Care) Vital Signs: Last Vital Signs Pulse 84 06/22/24 10:33 BP 126/68 06/22/24 10:33 Pulse Ox 93 06/22/24 10:33 Oxygen Delivery Method Room Air 06/22/24 10:33 BMI result Body Mass Index 21.8 Tobacco/Smoking Status: Tobacco use Status Tobacco use date assessed 06/22/24 06/22/24 10:37 Patient Tobacco Use Status Current everyday Tobacco 06/22/24 10:36 Tobacco use type Cigarette 06/22/24 10:36 e-Cigarette/Vaping Use Never Used 06/22/24 10:36 PHQ-9: PHQ-9 Score PHQ-9: Total score 3 06/22/24 10:36 Thrive Assessment: Date of Thrive Assessment Date Thrive assessed 06/22/24 06/22/24 10:36 Currently or been in a relationship where the following occur: No concerns reported Office Procedures Flu Questionnaire Does the patient have a severe egg allergy?: No Immunizations Fluarix Triv [id number] (PF) 45 mcg (15 mcg x 3)/0.5 mL IM syringe Performing Provider: Girma Baer MD [facility] [place] Documented (not given) by: CHUY Carrillo on 06/22/24 10:36 Reason Not Given: Patient Refused Coding Level of Care Code Est Pt Level 4 (81920) Complex EM visit Add On G2211 Diagnoses Abnormal EKG R94.31 Additional Codes ALEJANDRO-7 Assessment Billing - ALEJANDRO-7 Assessment Tool: ALEJANDRO-7 Assessment 05598 ([id number]) PHQ-9 - 60595 - PHQ-9 Billing: Yes ([id number]) Assessment & Plan Assessment & Plan (1) Abnormal EKG: Code(s): R94.31 - Abnormal electrocardiogram [ECG] [EKG] Category: Medical Plan: History of Present Illness The patient is a 68-year-old female presenting with concerns following a recent cataract surgery. She reports persistent blinking and mild discomfort post- operatively but has noted improvement in symptoms and has been advised that her vision has progressed to 20/20. She is scheduled for a final ophthalmologic examination on the . Additionally, the patient discusses her cardiac assessment. She has a history of a heart murmur, possibly due to scarlet fever as a child, and has undergone an EKG which showed lateral wall ischemic changes. she is scheduled for a stress test and cardiac ultrasound on the . Social History - Currently experiencing difficulties with housing and mentions being basically still homeless. - History of smoking with a mention of needing to quit. Review of Systems - Eyes: Reports blinking often. - Cardiovascular: Denies any current symptoms post-EKG but will undergo further testing. - Sleep: Reports somewhat well sleeping. - Musculoskeletal: Issues with driving at night due to vision problems. Physical Exam General: Cooperative and healthy appearing Nutritional Appearance: Well nourished Orientation/consciousness: Patient oriented x3 Limitations: No limitations Head: Normal to inspection General: Appearance normal, both eyes and all related structures Neck: Normal visual inspection Chest: Normal palpation of entire chest wall Respiratory: Normal respiratory effort Neurology: Patient oriented x3 Results - Echocardiogram: Scheduled - Stress Test: Scheduled for the 27 of June - Mammogram: Completed on June 20; results reported as normal. Plan - Continue monitoring post-operative recovery from cataract surgery, with a follow-up ophthalmologic exam scheduled. - Proceed with scheduled cardiac evaluations, including a stress test and echocardiogram, to assess the heart murmur and any related issues. - Discussion regarding smoking cessation, though no firm plan or assistance started. Patient was informed and verbally consented to the use of an ambient scribe for clinic note documentation during this visit. Discussion Notes I discussed the progress following the patient's recent cataract surgery, confirming the improvement in visual acuity and scheduling a follow-up exam. We also reviewed the necessity of further cardiac evaluations to rule out potential issues related to her historical heart murmur and childhood scarlet fever. Additionally, I emphasized the importance of discontinuing smoking for improved overall health, although no specific cessation plan was initiated. Follow-up and further assessment related to her housing situation were acknowledged but remained outside the direct scope of today's medical intervention. Continued monitoring and regular follow-up appointments are advised. 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 - Attend the scheduled stress test and echocardiogram on June 27. - Consider smoking cessation options and discuss during the next visit. - Report any new or concerning symptoms immediately. Orders: Orders Influenza [id number] Immunization 06/22/24 Z23 - Encounter for immunization
== END 2024-06-22 11:06 | disposition home or self-care (01) ==
PROVIDERS: PCP Internal Medicine; Visit Provider Internal Medicine
DX: Z23 Encounter for immunization (principal)

== ENCOUNTER → 2024-06-22 10:13 | Outpatient (BNVA) | payer MEDICARE, MEDICAID, SELFPAY | PROVIDERS: PCP Internal Medicine; Visit Provider Internal Medicine | DX: Z00.00 Encounter for general adult medical examination without abnormal findings (principal); R94.31 Abnormal electrocardiogram [ECG] [EKG]; Z28.21 Immunization not carried out because of patient refusal | CPT/HCPCS: 90471; 96127; 99212 ==

== ENCOUNTER → 2024-06-27 07:47 | Outpatient (REF) | payer MEDICARE, MEDICAID, SELFPAY ==
--- NOTE | 2024-06-27 07:52 | CA_ITS ---
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 Study Quality: Fair w/Contrast ECG Rhythm: Sinus Conclusions: - The left ventricular systolic function is normal. The calculated ejection fraction is 59% by biplane method. - The inferolateral wall and basal inferior segment are hypokinetic. - No obvious valvular pathology seen on this study. Findings Procedure Information Contrast agent, definity, is being given per protocol without apparent complications. Left Ventricle Normal left ventricular cavity size. There is normal left ventricular wall thickness. The left ventricular systolic function is normal. The calculated ejection fraction is 59% by biplane method. There is evidence of regional wall motion abnormalities. Diastolic function is normal for age. Wall Motion Rest Echo Findings The inferolateral wall and basal inferior segment are hypokinetic. Right Ventricle Normal right ventricular cavity size and systolic function. Atria Both atria are normal in size. Aortic Valve There is a normal trileaflet aortic valve. There is no aortic valve stenosis. There is no aortic valve regurgitation. Mitral Valve The mitral valve appears normal. There is no mitral valve regurgitation. There is no mitral valve stenosis. Pulmonic Valve The pulmonic valve is likely normal. Tricuspid Valve There is no tricuspid valve regurgitation. Tricuspid regurgitation envelope is inadequate for calculation of right ventricular systolic pressure. Great Vessels The asc aorta and aortic arch are normal in size. Venous The inferior vena cava is normal in size and collapses greater than 50% with inspiration. Pericardium/Pleural There is no evidence of pericardial effusion. Prior Study Comparison No prior study available for comparison. Recommendations, Care & Conclusions No obvious valvular pathology seen on this study. Measurements 2D Linear Measurements IVSd: 0.90 0.6-0.9/0.6-1.0 cm LVIDd: 4.64 3.9-5.3/4.2-5.9 cm LVIDd Index: 3.09 2.4-3.2/2.2-3.1 cm/m2 LVIDs: 3.11 2.0-3.6 cm LVPWd: 0.73 0.7-1.1 cm LA Diam: 2.60 2.7-3.8/3.0-4.0 cm LAIDs Index: 1.73 1.5-2.3 cm/m2 LV Mass: 153.07 67-162/88-224 g LV Mass Index: 102.05 43-95/49-115 g/m2 LVOT Diam: 1.90 3.0+(-)1.3 cm 2D Systolic Function EF 4C: 59.40 >55% EF 2C: 59.30 >55% EF BiP: 59.10 >55% Mitral Valve MV Pk E: 0.42 MV PK A: 0.67 MV Decel Time: 366.00 E/A: 0.60 E'Lateral: 5.87 E'Medial: 4.35 E/E' Med: 9.70 E/E' Lat: 7.20 PHT: 107.00 MVA PHT: 2.06 Decel [place]: 1.15 Aortic Valve AoV Pk Adonis: 1.02 AoV Mn Adonis: 0.74 AoV VTI: 0.23 AoV Pk Grad: 4.00 Aov Mn Grad: 2.00 ROGE Cont.VTI: 2.09 LVOT LVOT Pk Adonis: 0.80 LVOT Mn Adonis: 0.54 LVOT VTI: 0.17 LVOT Pk Grad: 3.00 LVOT Mn Grad: 1.00 LVOT Diam: 1.90 LVOT Area: 2.84 Diastolic Function MV Pk E: 0.42 MV Pk A: 0.67 E/A: 0.60 E'Medial: 4.35 E/E' Med: 9.70 E' Laterial: 5.87 E/E' Lat: 7.20 Right Ventricle TAPSE (mm): 23.00 TVS' Adonis: 10.70 Tricuspid Valve RA Press: 3.00 Great Vessels Aorta Sinus of Valsalva: 3.20 2.0-3.5 cm Ao Asc: 3.10 2.1-3.4 cm Ao Arch: 2.50 Pulmonary Valve PV Pk Adonis: 0.62 Peak PV Grad: 2.00 Updated in Other Vendor System with Status of Final Emeka Walter MD electronically signed on 06/28/2024 11:47:44 AM with status of Final
== END ==
LOC: HO.CARD 07:47
PROVIDERS: PCP Internal Medicine; Visit Provider Internal Medicine
DX: I47.19 Other supraventricular tachycardia (principal)
CPT/HCPCS: 93242; 93306; Q9957

== ENCOUNTER → 2024-06-27 07:52 | Outpatient (BNV) | payer MEDICARE, MEDICAID, SELFPAY | PROVIDERS: PCP Internal Medicine; Visit Provider Internal Medicine | DX: I25.10 Atherosclerotic heart disease of native coronary artery without angina pectoris (principal) | CPT/HCPCS: 93306 ==

== ENCOUNTER → 2024-09-14 09:30 | Outpatient (REF) | payer MEDICARE, MEDICAID, SELFPAY ==
--- NOTE | 2024-09-14 09:33 | CA_ITS ---
Acquisition Time: 2024-09-14 09:58:57 Total Exercise Time: 00:01:51 Test Indications: ABN EKG Medications: SIMVASTATIN METOPROLOL Protocol: MILAGROS Max HR: 106 BPM 69% of Pred: 152 BPM Max BP: 118/62 mmHG Max Work Load: 4.3 METS Exercise Stress Test with exercise 1 min 51 secs of Milagros Protocol, achieving 59% MPHR, requesting to due to severe SOB and back pain. Test switched to Lexiscan. Pharmacological stress test with Lexiscan while pt walked on treadmill at 1mph, with reports of SOB, abdominal discomfort, and 1/10 mid chest pressure, with isolated PVCs, with normotensive response to injection. Nondiagnostic EKG for ischemia. In recovery, pt treated with IVP Aminophylline 75 mg to reverse Lexiscan after which pt feeling back to baseline. Nuclear images pending. Test reviewed with Dr. Florian. Referred By: Emeka Walter Electronically Signed By: Kyle Bear
== END ==
LOC: HO.CARD 09:30
PROVIDERS: PCP Internal Medicine; Visit Provider Internal Medicine Cardiovascular Disease
DX: R07.2 Precordial pain (principal); R94.31 Abnormal electrocardiogram [ECG] [EKG]
CPT/HCPCS: 78452; 93017; A9500; J0280; J2785

== ENCOUNTER → 2024-09-14 09:33 | Outpatient (BNV) | payer MEDICARE, MEDICAID, SELFPAY | PROVIDERS: PCP Internal Medicine | DX: R06.02 Shortness of breath (principal); I49.3 Ventricular premature depolarization | CPT/HCPCS: 78452; 93016; 93018 ==

== ENCOUNTER 2024-09-18 09:36 | Outpatient (AMB) | payer MEDICARE, MEDICAID, SELFPAY ==
[2024-09-18 09:58] VITALS: BP 114/62; PULSE 73; BMI 21.9
--- NOTE | 2024-09-18 09:58 | A.OFFVIS_ITS ---
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 Today she reports that she continues to smoke 1 pack of cigarettes every 3 days. She has shortness of breath with physical activity. She does not feel that her breathing has overly changed in the last few months. No chest discomfort at rest or with activity. she will feel brief heart palpitations. No lightheadedness, presyncope, syncope. taking meds as directed. [facility] Medical History History of COVID-19 Osteoporosis PONV (postoperative nausea and vomiting) Back pain Surgical History History of colonoscopy History of surgery History of eye surgery History of hysterectomy History of breast surgery History of appendectomy Family History Father Colon cancer Mother Cancer Brother No problems noted. Sister No problems noted. Daughter No problems noted. Daughter No problems noted. Family/Other Mental health disorder Substance use disorder Social History Household Members: None Housing: Other Do you presently have visiting nurse or other home services: No Alcohol intake: current Alcohol intake frequency: a few times a month Alcohol type: beer Patient Tobacco Use Status: Current everyday Tobacco user Tobacco use type: Cigarette Cigarette Packs Per Day: 0.5 Cigarettes Per Day: 10.0 e-Cigarette/Vaping Use: Never Used Second Hand Smoke Exposure: Yes Substance Use Type: Marijuana Advance Directives Date on File: 02/13/13 service: No Current occupational status: retired Cognitive needs: No Hearing needs: No Vision needs: No Review of Systems Const All systems reviewed & are unremarkable except as noted in HPI and below ENT Denies dizziness Card Denies chest pain, Denies chest pain at rest, Denies chest pain with activity, Denies rapid heart rate, Denies pedal edema, Denies edema, Denies leg edema, Denies lightheadedness, Denies palpitations, Reports dyspnea, Reports dyspnea on exertion and Denies orthopnea Resp Reports cough, Reports dyspnea and Reports dyspnea on exertion GI Denies hematochezia and Denies change in stool character Musc Denies abnormal gait, Denies limited range of motion, Denies muscle cramps, Denies muscle weakness, Denies numbness, Denies radiating pain into limb, Denies stiffness and Denies tingling Neuro Denies abnormal gait, Denies dizziness, Denies numbness and Denies tingling Endo Denies palpitations Physical Exam Vital Signs: Last Vital Signs Pulse 73 09/18/24 09:58 BP 114/62 09/18/24 09:58 BMI result Body Mass Index 21.9 Const General: cooperative, healthy appearing, comfortable and no acute distress Orientation/consciousness: patient oriented x3 Neck Neck: Yes normal visual inspection Resp Other: Lungs diminished Effort & Inspection: normal respiratory effort Auscultation: clear to auscultation bilaterally, no rales, no rhonchi and no wheezes Cardio Rate: regular rate Rhythm: regular rhythm Heart sounds: S1 normal heart sound present, S2 normal heart sound present, no murmurs and no rubs Neuro General: patient oriented x3 Extrem General: Yes normal to inspection, No no pedal edema and No calf tenderness Psych Appearance: grossly normal Mental Status: mental status grossly normal Speech and movement: Normal speech and movement present Assessment & Plan Assessment & Plan (1) Abnormal EKG: Code(s): R94.31 - Abnormal electrocardiogram [ECG] [EKG] Category: Medical Plan: EKG 05/05/2024 shows sinus rhythm with sinus arrhythmia, ST and T-wave abnormality in the anterior lateral leads, Rate 93. she has no known prior cardiac history. For evaluation she underwent echocardiogram on 06/27/2024 showing EF 59%, inferior lateral and basal inferior mcgrath hypokinetic. An exercise nuclear stress test done 09/14/2024 showed exercise 1 minute and 51 seconds with need to stop due to severe shortness of breath and back discomfort. Test was changed to a pharmacological stress test and nuclear imaging was normal. Test results reviewed with her in detail. Signs and symptoms of angina reviewed. She likely has some degree of coronary artery disease however her shortness of breath seems to be pulmonary related. Discussed smoking cessation. She is interested in referral to pulmonology. Will check with her PCP. Will have her continue simvastatin and metoprolol. Signs and symptoms of angina reviewed with her. If she does have symptoms then CTA of the coronary arteries will be considered. Cardiology follow-up 6 months, sooner if needed (2) Atrial tachycardia: Code(s): I47.19 - Other supraventricular tachycardia Category: Medical Plan: Holter monitor done 06/27/2024 for 3 days shows sinus rhythm with average heart rate 86, 22% of the time heart rate greater than 100, episode of narrow complex tachycardia lasting 4 minutes 45 seconds, rate 176, rare ventricular ectopy. Following this results she was started on metoprolol. She does report occasional heart palpitations but no sustained rapid rates. Vagal maneuvers reviewed. (3) SOB (shortness of breath): Code(s): R06.02 - Shortness of breath Category: Medical Plan: She has shortness of breath with exertion as seen on recent cardiac stress test. She continues to smoke. (4) Moderate cigarette smoker (10-19 per day): Code(s): F17.210 - Nicotine dependence, cigarettes, uncomplicated Category: Social Hx (5) Abnormal echocardiogram findings without diagnosis: Code(s): R93.1 - Abnormal findings on diagnostic imaging of heart and coronary circulation Category: Medical Plan: Echocardiogram does show wall motion abnormality. Nuclear imaging on stress test was normal. Plan Time spent on chart review, documentation, interview and assessment Coding Level of Care Code Est Pt Level 4 (15467) Complex EM visit Add On G2211 Diagnoses Abnormal EKG R94.31 Atrial tachycardia I47.19 SOB (shortness of breath) R06.02 Moderate cigarette smoker (10-19 per day) F17.210 Abnormal echocardiogram findings without diagnosis R93.1 Time Spent (min) 32
== END 2024-09-18 10:41 | disposition home or self-care (01) ==
PROVIDERS: PCP Internal Medicine; Visit Provider Nurse Practitioner Family
DX: R94.31 Abnormal electrocardiogram [ECG] [EKG] (principal); I47.19 Other supraventricular tachycardia; R06.02 Shortness of breath; F17.210 Nicotine dependence, cigarettes, uncomplicated; R93.1 Abnormal findings on diagnostic imaging of heart and coronary circulation
CPT/HCPCS: 99214; G2211

== ENCOUNTER → 2024-09-18 09:36 | Outpatient (BNVA) | payer MEDICARE, MEDICAID, SELFPAY | PROVIDERS: PCP Internal Medicine; Visit Provider Nurse Practitioner Family | DX: I47.19 Other supraventricular tachycardia (principal); R94.31 Abnormal electrocardiogram [ECG] [EKG]; R06.02 Shortness of breath; R93.1 Abnormal findings on diagnostic imaging of heart and coronary circulation; F17.210 Nicotine dependence, cigarettes, uncomplicated | CPT/HCPCS: 99212 ==

== ENCOUNTER 2024-11-02 09:12 | Outpatient (AMB) | payer MEDICARE, MEDICAID, SELFPAY ==
--- NOTE | 2024-11-02 09:21 | MHC.OFFVIS ---
Vital Signs 11/02/24 09:22 Height 5 ft 2 in Weight 120 lb BMI 21.9 BP 102/62 Blood Pressure Location Lt brachial Position Sitting Pulse 72 Pulse Source Pulse Oximeter Pulse Oximetry (%) 95 Oxygen Delivery Method Room Air Intake Visit Reasons: Shortness of Breath/Smoker Intake Note: pt is here as a new patient for shortness of breath with exertion, she also states she has very high anxiety. 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 Denies history of childhood asthma. Has not had any recent respiratory illnesses or infections. Does not use any inhalers. She is currently taking Celexa 20 mg daily but reports she has suffered from severe anxiety since the passing of her father in 2013. Is currently smoking 1 pack of cigarettes over 4 days. Has had an echo and stress test completed by Cardiology with no acute findings. She has not had any chest x-ray. She has not been talked to about lung screening program. [facility] is reviewed . [facility] Medical History (Updated 11/02/24 @ 10:54 by Rosemarie Day PA-C) Nicotine dependence, cigarettes, uncomplicated History of COVID-19 Osteoporosis PONV (postoperative nausea and vomiting) Back pain Surgical History History of colonoscopy (~12/31/22) History of surgery History of eye surgery History of hysterectomy History of breast surgery History of appendectomy Family History Father Colon cancer Mother Cancer Brother No problems noted. Sister No problems noted. Daughter No problems noted. Daughter No problems noted. Family/Other Mental health disorder Substance use disorder Social History Household Members: None Housing: Other Do you presently have visiting nurse or other home services: No Alcohol intake: current Alcohol intake frequency: a few times a month Alcohol type: beer Patient Tobacco Use Status: Current everyday Tobacco user Tobacco use type: Cigarette Cigarette Packs Per Day: 0.5 Cigarettes Per Day: 10.0 e-Cigarette/Vaping Use: Never Used Second Hand Smoke Exposure: Yes Substance Use Type: Marijuana Advance Directives Date on File: 02/13/13 service: No Current occupational status: retired Cognitive needs: No Hearing needs: No Vision needs: No Review of Systems Const Reports no additional complaints Eyes Reports no additional complaints ENT Reports no additional complaints Card Reports no additional complaints Resp Reports as per HPI GI Reports no additional complaints Reports no additional complaints Musc Reports no additional complaints Skin/Breast Reports system reviewed and no additional complaints, except as documented Neuro Reports no additional complaints Psych Reports anxiety Endo Reports no additional complaints Tc/Lymph Reports no additional complaints Aller/Immun Reports no additional complaints Physical Exam Vital Signs: Last Vital Signs Pulse 72 11/02/24 09:22 BP 102/62 11/02/24 09:22 Pulse Ox 95 11/02/24 09:22 Oxygen Delivery Method Room Air 11/02/24 09:22 BMI result Body Mass Index 21.9 Const General: healthy appearing (But a little anxious), comfortable, no acute distress, alert and awake Orientation/consciousness: patient oriented x3 HEENT Head: Yes normal to inspection General nose exam: No nasal polyps present and No nasal discharge present Face and sinus: Yes sinuses nontender Mouth: oropharynx normal Throat: Yes posterior oropharynx normal Eyes General: appearance normal, both eyes and all related structures Neck Neck: Yes normal visual inspection, Yes no lymphadenopathy, Yes trachea midline and Yes no JVD Thyroid: Thyroid normal Chest Chest palpation & inspection: normal inspection of the chest, normal palpation of entire chest wall and no tenderness Resp Other: Percussion note is resonant. .Chest is symmetrical Breath sounds are slightly distant with prolonged expiratory phase. No audible wheezes or rhonchi are heard . Cardio Palpation: normal PMI Rate: regular rate Rhythm: regular rhythm Heart sounds: no gallops and no murmurs Peripheral pulses: Peripheral pulses 2+ throughout GI Palpation (GI): Soft to palpation, nontender, No hepatosplenomegaly present and no masses Auscultation: normal bowel sounds Back/Spine/Pelvis Thoracic/Lumbar Spine: thoracic and lumbar spine normal to inspection Skin General skin exam: no rashes or lesions noted Neuro General: patient oriented x3 and no focal motor deficits Cranial nerves: Yes CN's II-XII intact bilaterally Extrem General: Yes normal to inspection, Yes no clubbing, cyanosis or edema and Yes no calf tenderness Psych Appearance: grossly normal and well kempt Speech and movement: Normal speech and movement present Office Procedures Spirometry Testing Spirometry Comments: In office spirometry completed with results given to Dr Marrero. 62175- Spirometry Results Reviewed Results Reviewed: FVC=80 % FEV1= 63 % FEV1/FVC=61 FEF 25-75 = 35 % SPIROMETRY PERFORMED IN THE OFFICE.: THE RESULTS ARE CONSISTENT WITH MODERATELY SEVERE OBSTRUCTIVE AIRWAY DISORDER. THE RESULTS. ARE REVIEWED WITH PATIENT Assessment & Plan Assessment & Plan (1) Moderate cigarette smoker (10-19 per day): Comment: Is currently smoking 1 pack of cigarettes over 4 days. trying to cut down . Code(s): F17.210 - Nicotine dependence, cigarettes, uncomplicated Category: Social Hx Plan: Enroll in yearly low-dose chest CT lung cancer screening program Educated on importance of smoking cessation. Will start her on on nicotine gums/ patch , she is going. To buy this. [id number] (2) SOB (shortness of breath): Comment: Shortness of breath with exertion over last 1-2 years. It is definitely secondary to chronic obstructive pulmonary disease as confirmed by spirometry. Code(s): R06.02 - Shortness of breath Category: Medical Plan: Discussed the results of Jeffery with the patient. Educated about COPD. Chest x-ray is ordered as a baseline Will prescribe fluticasone-salmeterol 250-50 1 inhalation b.i.d. Educated on the importance of smoking cessation. (3) Anxiety: Comment: Patient admits that she is chronically anxious. Anxiety and depression have worsened since the passing of her father in 2013. Has been taking Citalopram for many years. Does not want dose of citalopram increased. Code(s): F41.9 - Anxiety disorder, unspecified Category: Medical Plan: Continue Citalopram 20 mg po daily . Patient educated about her anxiety and reassured. She would need lot of emotional support. Orders: Orders AMB Spirometry Testing Today R06.02 - Shortness of breath XR chest 2V Today F17.210 - Nicotine dependence, cigarettes, uncomplicated, R06.02 - Shortness of breath Medications: New fluticasone propion-salmeterol 250-50 mcg/dose (Wixela Inhub) 1 inh inhalation BID 60 ea 3RF COPD 30 days Coding Level of Care Code New Pt Level 4 (96095) Diagnoses Moderate cigarette smoker (10-19 per day) F17.210 SOB (shortness of breath) R06.02 Anxiety F41.9 CPT Codes Spirometry - CPT: 04293- Spirometry ([id number])
[2024-11-02 09:22] VITALS: BP 102/62; PULSE 72; O2SAT 95; BMI 21.9
--- OUTSIDE RECORDS SUMMARY | 2024-11-02 09:48 | XMS_ITS | Data Portability ---
Author Organization [place] [facility] Address [address] [place] [address] Assessment Encounter Date Assessment Date Assessment LastModified by Organization Details LastModified Time 09/29/2023 09/29/2023 68-year-old female 4-month status post posterior decompression and instrumented fusion L3-4. Transitional syndrome. Doing well. Precautions reviewed. Follow-up to be arranged. [email or web address] Not available 09/29/2023 12:29:40 Plan of Treatment Reminders Order Date Submit Date Provider Last Modified By Organization Details Last Modified Time Details Appointments None recorded . Lab None recorded . Referral None recorded . Procedures None recorded . Surgeries None recorded . Imaging XR, lumbosac ral spine, 2 or 3 view - 2 v l/s room 321 [facility] (Juan Burgos), [address] [place], [address], 4 10:13:30 Medication Orders None recorded . Patient TargetsNo targets recorded. Patient InstructionsNo instructions recorded. Reason for Referral None Reported. Results Created Date Observation Date Name Description Value Unit Range Abnormal Flag Note LastModifiedBy Organization Detail LastModifiedTime 02/18/20 24 05/29/2023 imagi ng/di agnos tic resul t No observ ation record ed. [email or web address] Not Available 01/21 12:48:00 Result Notes None recorded. Problems Name Problem SNOMED Code Status Onset Date Resolution Date Notes Provider Name and Address Organization Details Recorded Time No complaints [id number] Active Status : 'A'; Not Available [facility] 4 09:15:34 Problem Notes None recorded. Procedures Surgical History None recorded. Imaging Results Imaging Date Name Status LastModified by Organiz ation Details LastModified Time 05/29/2023 imaging/diag nostic result completed [email or web address] Information not available 02/18/2024 12:48:00 Procedure Notes None recorded. Medical Equipment None Reported. Allergies No known drug allergies Medications Name Sig Start Date Stop Date Status Note LastModified by Organization Details LastModified Time ibuprofen 800 mg tablet TAKE 1 TABLET BY MOUTH EVERY 8 HOURS NEEDED FOR PAIN active Not Available Not Available No t Available citalopram 20 mg tablet TAKE 1 TABLET BY MOUTH DAILY active Not Available Not Available No t Available oxycodone 5 mg tablet TAKE 1 TABLET BY MOUTH EVERY 4 TO 6 HOURS NEEDED active Not Available Not Available No t Available cyclobenzaprine 5 mg tablet TAKE 1 TABLET BY MOUTH AT BEDTIME NEEDED FOR MUSCLE SPASM active Not Available Not Available No t Available oxycodone XDb-gqnbndbwf-X SA 1 every 4 - 6 hours as needed 2023 active Statu s: 'Curr ent'; Not Available Not Available Not Available Vitals Date Recorded Body height Body mass index (BMI) Body weight Provider Name and Address Organization Details Last Updated DateTime 09/29/2023 154.94 cm 23.6 kg/m2 67238.05 g VIVI KLEIN [place] [facility] 09/29/2023 10:25:19 Social History None recorded. Functional Status None recorded. Mental Status None recorded. Family History Nothing Reported. Medical History No medical history recorded. Gynecological HistoryNo gynecological history recorded. Obstetrics History GPAL:G 0 P 0 0 0 0 Past Encounters Encounter ID Performer Location Encounter Start Date Encounter Closed Date Diagnosis/Indication Diagnosis SNOMED-CT Code Diagnosis ICD10 Code Diagnosis Note [id number] Edward Vazquez MD [place] [address] [place] [address] 09/29/2023 09:36:55 10/20/2023 10:13:30 Low back pain 205341850 M54.50 Health Concerns Section Related Observation LastModified by Organization Detai ls LastModified Time None Recorded Concern Status LastModified by Organization Details LastModified Time None Recorded Advance Directives Directive None Recorded Payers Encounter Date Sequence Insurance Name Policy Number Policy Brown Covered Member ID Brown Member ID Guarantor Name 09/29/2023 2 [place] [facility] Catia Waggoner [id number] Karen Corss Rosaline 09/29/2023 1 [place] [employer] Catia Cross Rosaline [id number] Karen Cross Rosaline Notes Date Note Type Note Provider Name and Address Organization Details Recorded Time 09/29/2023 text/html HPI: 68-year-old female now 4 months status post posterior decompression and instrumented fusion L3-4 level previous fusion for transitional syndrome. Has done quite well. No medications for pain. No complaints. WORK STATUS: Not working presently PFMSH and ROS has been reviewed, updated, and is located in the patient's chart RADIOGRAPHS: AP and lateral lumbar spine films show implants in excellent position and alignment with consolidation of fusion mass PHYSICAL EXAMINATION: Edward Vazquez MD [address] [facility] [address], [place], [address], [facility] - [facility] 09/30/2023 12:50:38 OBGyn Episode No OBEpisode recorded.
== END 2024-11-02 10:15 | disposition home or self-care (01) ==
LOC: HO.HPS 09:13
PROVIDERS: PCP Internal Medicine; Referring Provider Nurse Practitioner Family; Visit Provider Internal Medicine
DX: F17.210 Nicotine dependence, cigarettes, uncomplicated (principal); R06.02 Shortness of breath; F41.9 Anxiety disorder, unspecified
CPT/HCPCS: 94010; 99204

== ENCOUNTER → 2024-11-02 09:12 | Outpatient (BNVA) | payer MEDICARE, MEDICAID, SELFPAY | PROVIDERS: PCP Internal Medicine; Referring Provider Nurse Practitioner Family; Visit Provider Internal Medicine | DX: R06.02 Shortness of breath (principal); F17.210 Nicotine dependence, cigarettes, uncomplicated; F41.9 Anxiety disorder, unspecified | CPT/HCPCS: 94010; 99202 ==

== ENCOUNTER 2024-11-06 10:48 | Outpatient (REF) | payer MEDICARE, MEDICAID, SELFPAY ==
--- NOTE | ~2024-11-06 | XR_ITS ---
EXAMINATION: XR CHEST 2 VIEWS HISTORY: F17.210 - Nicotine dependence, cigarettes, uncomplicated COMPARISON: Comparison is made with the prior examination dated 04/14/2019. FINDINGS: PA and lateral views of the chest are submitted. The lungs are hyperinflated, consistent with COPD. The lungs are clear. There is no pleural effusion, pneumothorax, or pulmonary vascular congestion. The heart is normal in size. The patient is status post lumbar fusion with pedicle screws and spinal stabilization rods. There are old healed left rib fractures. There is a surgical clip in the right breast. XR/XR chest 2V IMPRESSION: COPD. No acute cardiopulmonary abnormality. Electronically signed by: Edward Rincon MD 11/06/2024 11:11 AM EDT
--- OUTSIDE RECORDS SUMMARY | 2024-11-06 11:26 | XMS_ITS | Data Portability ---
Author Organization [place] [facility] Address [address] [place] [address] Assessment Encounter Date Assessment Date Assessment LastModified [...] 2 v l/s room 321 [facility] (Juan Burgos), [address] [place], [address], 4 10:13:30 Medication Orders None recorded . [...] Address Organization Details Recorded Time No complaints [id number] Active Status : 'A'; Not Available [facility] [...] Available Not Available No t Available oxycodone QCf-ieioyrttj-T SA 1 every 4 - 6 hours as needed 2023 active Statu s: 'Curr ent'; Not Available Not Available Not Available Vitals Date Recorded Body height Body mass index (BMI) Body weight Provider Name and Address Organization Details Last Updated DateTime 09/29/2023 154.94 cm 23.6 kg/m2 59992.05 g VIVI KLEIN [place] [facility] 09/29/2023 10:25:19 Social History None recorded. Functional Status None recorded. Mental Status None recorded. Family History Nothing Reported. Medical History No medical history recorded. Gynecological HistoryNo gynecological history recorded. Obstetrics History GPAL:G 0 P 0 0 0 0 Past Encounters Encounter ID Performer Location Encounter Start Date Encounter Closed Date Diagnosis/Indication Diagnosis SNOMED-CT Code Diagnosis ICD10 Code Diagnosis Note [id number] Edward Vazquez MD [place] [address] [place] [address] 09/29/2023 09:36:55 10/20/2023 10:13:30 Low back pain 666280829 M54.50 Health Concerns Section Related Observation LastModified by Organization Detai ls LastModified Time None Recorded Concern Status LastModified by Organization Details LastModified Time None Recorded Advance Directives Directive None Recorded Payers Encounter Date Sequence Insurance Name Policy Number Policy Brown Covered Member ID Brown Member ID Guarantor Name 09/29/2023 2 [place] [facility] Catia Waggoner [id number] Karen Cross Rosaline 09/29/2023 1 [place] [employer] Catia Cross Rosaline [id number] Karen Cross Rosaline Notes Date Note Type [...] mass PHYSICAL EXAMINATION: Edward Vazquez MD [address] [facility] [address], [place], [address], [facility] - [facility] 09/30/2023 12:50:38 OBGyn Episode No OBEpisode recorded.
== END 2024-11-06 10:49 | disposition home or self-care (01) ==
LOC: HO.XRAY 10:48
PROVIDERS: PCP Internal Medicine; Visit Provider Internal Medicine
DX: R06.02 Shortness of breath (principal); F17.210 Nicotine dependence, cigarettes, uncomplicated
CPT/HCPCS: 71046

== ENCOUNTER → 2024-11-06 10:52 | Outpatient (BNV) | payer MEDICARE, MEDICAID, SELFPAY | PROVIDERS: PCP Internal Medicine; Visit Provider Radiology Diagnostic Radiology | DX: J44.9 Chronic obstructive pulmonary disease, unspecified (principal) | CPT/HCPCS: 71046 ==

== ENCOUNTER 2024-11-24 10:45 | Outpatient (AMB) | payer MEDICARE, MEDICAID, SELFPAY ==
--- NOTE | 2024-11-24 08:10 | A.OFFVIS_ITS ---
Intake Visit Reasons: Current Smoker Allergies No Known Allergies Allergy (Verified 11/02/24 09:37) HPI HPI Current Smoker: Details: Initial visit for this 69yo smoker with a 40+PYH. Patient started smoking at age 14 for 55 years at 1ppd. Currently at 1/4ppd. . Denies marijuana use. Denies second hand smoke exposure. Denies exposure to chemicals or substances like asbestos. . Denies known family history of lung cancer. Reports personal history of Right breast cancer - s/p radiation Denies chest CT in last year. . Denies recent travel outside the [place]. Denies recent respiratory illness or recent hospitalization for respiratory issues. Reports testing positive for COVID. Admits receiving COVID Vaccine. . Denies fever, chills, new/worsening cough, hemoptysis, hoarseness or dysphagia. Denies significant chest pain, significant dyspnea or unintentional weight loss. Patient Lung Cancer Screening Questionnaire reviewed with patient by provider. . Shared Decision Making Completed. Patient meets criteria. Discussed in detail with patient, the risk vs benefit of LDCT screening. Patient consents to proceed with scan. Discussed smoking cessation. [facility] Medical History (Updated 11/24/24 @ 11:06 by Rosemarie Day PA-C) History of right breast cancer Nicotine dependence, cigarettes, uncomplicated History of COVID-19 Osteoporosis PONV (postoperative nausea and vomiting) Back pain Surgical History (Updated 11/24/24 @ 11:03 by Rosemarie Day PA-C) History of colonoscopy (~12/31/22) History of surgery History of eye surgery History of hysterectomy History of breast surgery History of appendectomy Family History Father Colon cancer Mother Cancer Brother No problems noted. Sister No problems noted. Daughter No problems noted. Daughter No problems noted. Family/Other Mental health disorder Substance use disorder Social History (Updated 11/24/24 @ 11:06 by Rosemarie Day PA-C) Household Members: None Housing: Other Do you presently have visiting nurse or other home services: No Alcohol intake: current Alcohol intake frequency: a few times a month Alcohol type: beer Patient Tobacco Use Status: Current everyday Tobacco user Tobacco use type: Cigarette Cigarettes Per Day: 5 Years Smoked: (onset 14yo, 1ppd x 55yrs, now 1/4ppd - 40+PYH) e-Cigarette/Vaping Use: Never Used Second Hand Smoke Exposure: Yes Substance Use Type: Marijuana Advance Directives Date on File: 02/13/13 service: No Current occupational status: retired Cognitive needs: No Hearing needs: No Vision needs: No Assessment & Plan Assessment & Plan (1) Nicotine dependence, cigarettes, uncomplicated: Comment: (onset 14yo, 1ppd x 55yrs, now 06/24ppd - 40+PYH) Code(s): F17.210 - Nicotine dependence, cigarettes, uncomplicated Category: Medical Plan: - SDM visit completed today in office. - Patient meets criteria for LDCT for lung cancer screening purposes and is asymptomatic. - Smoking cessation counseling offered. Patients can always call [phone]. - Will arrange for a LDCT scan of the chest for screening purposes at [facility]. - Risks, benefits, and alternatives were discussed in detail and the patient agrees to proceed. - Risks discussed include but are not limited to: radiation exposure, anxiety during testing and while awaiting results, false negatives, false positives and possibility of additional intervention such as further imaging or surgical procedures for benign disease. - Benefits are obviously detection of lung cancer at an early stage which can lead to improved outcomes. - Discussed the importance of screening program compliance with adherence to yearly LDCT scan as scheduled - or sooner interval scans for personalized screening regimen. - Discussed follow up plan. Our office will send a letter discussing results and if needed set up phone call and office visit based on CT findings. - Patient educated on results categorization and the management decisions for suspicious findings potentially found on the screening LDCT scan. Any patient with a Lung RADS score of 3 or 4 will be reviewed by a multidisciplinary team at [facility] to form a plan of action in regards to scan findings. - If further work up is warranted for a suspicious lung finding this will be followed by the Lung Cancer Screening program in conjunction with the Thoracic Surgery Department at [facility]. - A copy of the office note and LDCT will be sent to the patient's PCP - as well as documentation on any associated further plans of care. - Incidental findings on LDCT are the PCP's responsibility. These findings are indicated with an S finding on the LDCT Assessment. A note discussing the findings will be sent to the PCP who is then responsible for further management. - All questions answered.? Coding Level of Care Code Lung Cancer Screening G0296 Diagnoses Nicotine dependence, cigarettes, uncomplicated F17.210
--- OUTSIDE RECORDS SUMMARY | 2024-11-24 11:39 | XMS_ITS | Data Portability ---
Author Organization [place] - [facility], [facility] Address [address] [place] [address] Assessment Encounter Date Assessment Date Assessment LastModified [...] 2 v l/s room 321 2023 [facility] (Juan Burgos), [address] [place], [address], 4 10:13:30 Medication Orders None recorded . [...] Address Organization Details Recorded Time No complaints [id number] Active Status : 'A'; Not Available [facility] 4 09:15:34 Problem Notes None recorded. Medical Equipment None Reported. [...] Available Not Available No t Available oxycodone QRr-terxtgkzk-P SA 1 every 4 - 6 hours as needed 2023 active Statu s: 'Curr ent'; Not Available Not Available Not Available Vitals Date Recorded Body height Body mass index (BMI) Body weight Provider Name and Address Organization Details Last Updated DateTime 09/29/2023 154.94 cm 23.6 kg/m2 04419.05 g VIVI KLEIN [place] - [facility] 09/29/2023 10:25:19 Social History None recorded. Functional Status None recorded. Mental Status None recorded. Family History Nothing Reported. Medical History No medical history recorded. Gynecological HistoryNo gynecological history recorded. Obstetrics History GPAL:G 0 P 0 0 0 0 Past Encounters Encounter ID Performer Location Encounter Start Date Encounter Closed Date Diagnosis/Indication Diagnosis SNOMED-CT Code Diagnosis ICD10 Code Diagnosis Note [id number] Edward Vazquez MD [place] [address] [place] [address] 09/29/2023 09:36:55 10/20/2023 10:13:30 Low back pain [id number] M54.50 Health Concerns Section Related Observation LastModified by Organization Detai ls LastModified Time None Recorded Concern Status LastModified by Organization Details LastModified Time None Recorded Advance Directives Directive None Recorded Payers Encounter Date Sequence Insurance Name Policy Number Policy Brown Covered Member ID Brown Member ID Guarantor Name 09/29/2023 2 [place] Catia Waggoner [id number] Karen Waggoner 09/29/2023 1 [place] [employer] Catia Waggoner [id number] Karen Waggoner Notes Date Note Type Note Provider Name [...] fusion mass PHYSICAL EXAMINATION: Edward Vazquez MD [address] [place] [address] [address], [place], [address], [facility] - [facility] 09/30/2023 12:50:38 OBGyn Episode No OBEpisode recorded.
== END 2024-11-24 12:57 | disposition home or self-care (01) ==
LOC: HO.HPS 10:46
PROVIDERS: PCP Internal Medicine; Referring Provider Internal Medicine; Visit Provider Physician Assistant Medical
DX: F17.210 Nicotine dependence, cigarettes, uncomplicated (principal)
CPT/HCPCS: G0296

== ENCOUNTER 2024-11-24 11:06 | Outpatient (REF) | payer MEDICARE, MEDICAID, SELFPAY ==
--- NOTE | ~2024-11-24 | CT_ITS ---
CLINICAL HISTORY: F17.210 - Nicotine dependence, cigarettes, uncomplicated CT lung cancer screening (LDCT) Comparison: CR/SR - XR CHEST 2V - 11/06/24 11:00 EDT Technique: Axial CT images of the chest using low-dose technique. Referring provider counseled the patient on shared decision-making for LDCT screening. Additional counseling was provided on smoking cessation. Effective radiation dose total: DLP 30.1 mGycm, CTDIvol 0.9 mGy. Findings: There is a 5 mm nodule in the right upper lobe best seen on image number 62 of series number 5. There is a 2 mm nodule in the left upper lobe best seen on image number 38 of series number 5. A 2 mm nodule is seen in the left upper lobe on image number 41 of series number 5. A 3 mm nodule is seen in the left upper lobe on image number 42 of series number There are mild coronary artery calcifications. Limited upper abdomen: Unremarkable Other: None Impression: LungRADS 3 - Probably benign: Recommend low dose screening Chest CT in 6 months. ##L3# Category 1: Normal; continue annual screening Category 2: Benign appearance or behavior, continue annual screening Category 3: Probably benign, [address] recommended Category 4A: Suspicious, [address] recommended; may consider PET/CT Category 4B: Suspicious, Additional diagnostics and/or tissue sampling recommended Category 4X: Suspicious, Additional diagnostics and/or tissue sampling recommended Category 0: Recalls (incomplete screen due to Incomplete coverage, Noise, Respiratory motion, Expiration, Obscured by acute abnormality) This document has been electronically signed by: Tevin Canada MD on 11/24/2024 12:47:56
== END 2024-11-24 11:07 | disposition home or self-care (01) ==
LOC: HO.CT 11:06
PROVIDERS: PCP Internal Medicine; Visit Provider Physician Assistant Medical
DX: Z12.2 Encounter for screening for malignant neoplasm of respiratory organs (principal); F17.210 Nicotine dependence, cigarettes, uncomplicated
CPT/HCPCS: 71271; G0296

== ENCOUNTER 2024-12-14 10:37 | Outpatient (AMB) | payer MEDICARE, MEDICAID, SELFPAY ==
--- NOTE | 2024-12-14 10:49 | MHC.OFFVIS ---
Vital Signs 12/14/24 10:53 Height 5 ft 2 in Weight 126 lb BMI 23.0 BP 110/64 Blood Pressure Location Lt brachial Position Sitting Pulse 74 Pulse Source Pulse Oximeter Pulse Oximetry (%) 94 Oxygen Delivery Method Room Air Intake Visit Reasons: Shortness of Breath/Smoker Intake Note: pt is here for follow up and states she is just okay Molder Closed Molds Required: No Allergies No Known Allergies Allergy (Verified 12/14/24 11:12) Medication List - Last Reconciled 12/14/24 by Juan Alberto Marrero MD Advair HFA 115-21 mcg/actuation (fluticasone propion-salmeterol) 2 puffs inhalation BID 30 days NS citalopram 20 mg PO DAILY metoprolol succinate ER 25 mg PO DAILY simvastatin 10 mg PO BEDTIME Do you need a note to return to daycare/school/sports/work: No HPI HPI Shortness of Breath/Smoker: Details: 69 years old female is here for pulmonary follow-up. Since her initial visit, she has had low-dose CT scan of the lung which initially reported as showing a 5 mm pulmonary nodule in right upper lobe, category 3. But it was reviewed in the multidisciplinary meeting, and downgraded to category 2. Her spirometry in the office was indicated of moderately severe obstructive airway disorder. She has been using Advair HFA 2 puffs b.i.d. and albuterol only once in a while. Breathing is relatively better but she still has cough which is mostly related to smoking. She has cut down smoking to only 4 cigarettes a day, on special occasions such as republican events she may use up to half pack a day. She is an anxious person and tends to smoke to alleviate her anxiety. FORMERLY [facility], [facility]–1983 Medical History (Updated 12/14/24 @ 11:20 by Juan Alberto Marrero MD) COPD (chronic obstructive pulmonary disease) History of right breast cancer Nicotine dependence, cigarettes, uncomplicated History of COVID-19 Osteoporosis PONV (postoperative nausea and vomiting) Back pain Surgical History History of colonoscopy (~12/31/22) History of surgery History of eye surgery History of hysterectomy History of breast surgery History of appendectomy Family History Father Colon cancer Mother Cancer Brother No problems noted. Sister No problems noted. Daughter No problems noted. Daughter No problems noted. Family/Other Mental health disorder Substance use disorder Social History Household Members: None Housing: Other Do you presently have visiting nurse or other home services: No Alcohol intake: current Alcohol intake frequency: a few times a month Alcohol type: beer Patient Tobacco Use Status: Current everyday Tobacco user Tobacco use type: Cigarette Cigarettes Per Day: 5 Years Smoked: (onset 14yo, 1ppd x 55yrs, now 1/4ppd - 40+PYH) e-Cigarette/Vaping Use: Never Used Second Hand Smoke Exposure: Yes Substance Use Type: Marijuana Advance Directives Date on File: 02/13/13 service: No Current occupational status: retired Cognitive needs: No Hearing needs: No Vision needs: No Review of Systems Const Reports no additional complaints Eyes Reports no additional complaints ENT Reports no additional complaints Card Reports no additional complaints Resp Reports as per HPI GI Reports no additional complaints Reports no additional complaints Musc Reports no additional complaints Skin/Breast Reports system reviewed and no additional complaints, except as documented Neuro Reports no additional complaints Psych Reports anxiety Endo Reports no additional complaints Tc/Lymph Reports no additional complaints Aller/Immun Reports no additional complaints Physical Exam Const General: healthy appearing (But a little anxious), comfortable, no acute distress, alert and awake Orientation/consciousness: patient oriented x3 HEENT Head: Yes normal to inspection General nose exam: No nasal polyps present and No nasal discharge present Face and sinus: Yes sinuses nontender Mouth: oropharynx normal Throat: Yes posterior oropharynx normal Eyes General: appearance normal, both eyes and all related structures Neck Neck: Yes normal visual inspection, Yes no lymphadenopathy, Yes trachea midline and Yes no JVD Thyroid: Thyroid normal Chest Chest palpation & inspection: normal inspection of the chest, normal palpation of entire chest wall and no tenderness Resp Other: Percussion note is resonant. .Chest is symmetrical Breath sounds are slightly distant with prolonged expiratory phase. No audible wheezes or rhonchi are heard . Cardio Palpation: normal PMI Rate: regular rate Rhythm: regular rhythm Heart sounds: no gallops and no murmurs Peripheral pulses: Peripheral pulses 2+ throughout GI Palpation (GI): Soft to palpation, nontender, No hepatosplenomegaly present and no masses Auscultation: normal bowel sounds Back/Spine/Pelvis Thoracic/Lumbar Spine: thoracic and lumbar spine normal to inspection Skin General skin exam: no rashes or lesions noted Neuro General: patient oriented x3 and no focal motor deficits Cranial nerves: Yes CN's II-XII intact bilaterally Extrem General: Yes normal to inspection, Yes no clubbing, cyanosis or edema and Yes no calf tenderness Psych Appearance: grossly normal and well kempt Speech and movement: Normal speech and movement present Results Reviewed Results Reviewed: LDCT CHEST 5 MM NODULE RIGHT UPPER LOBE CATEGORY 2 WITH A FEW SMALL OTHER NODULES 2-3 MM Assessment & Plan Assessment & Plan (1) COPD (chronic obstructive pulmonary disease): Comment: PER SPIROMETRY IN THE OFFICE SHE DOES HAVE MODERATELY SEVERE OBSTRUCTIVE AIRWAY DISORDER ( COPD ) THIS IS DEFINITELY RELATED TO HER LIFELONG SMOKING. PARTIALLY IMPROVED WITH THE USE OF ADVAIR HFA. Code(s): J44.9 - Chronic obstructive pulmonary disease, unspecified Category: Medical Plan: ONCE AGAIN WE TALKED AT LENGTH ABOUT COPD. ADVISED TO CONTINUE USING ADVAIR HFA 115-212 PUFFS B.I.D. AND ALBUTEROL HFA 2 PUFFS Q 6 HOURS ONLY P.R.N.. (2) Nicotine dependence, cigarettes, uncomplicated: Comment: (onset 14yo, 1ppd x 55yrs, now 1/4ppd - 40+PYH) CURRENTLY HAS CUT DOWN TO 4 CIGARETTES A DAY,. Code(s): F17.210 - Nicotine dependence, cigarettes, uncomplicated Category: Medical Plan: HAD A GOOD TALK AGAIN AND ENCOURAGED TO QUIT COMPLETELY (3) Pulmonary nodule: Comment: (5mm RUL nodule seen on 11/24/24 LDCT - will review at 12/01 conference). REVIEWED ON 12/01 , AND CLASSIFIED CATEGORY 2 MOST LIKELY BENIGN NODULE Code(s): R91.1 - Solitary pulmonary nodule Category: Medical Plan: NEEDS REPEAT LDCT ONCE A YEAR (4) Anxiety: Comment: Patient admits that she is chronically anxious. Anxiety and depression have worsened since the passing of her father in 2013. Has been taking Citalopram for many years. Does not want dose of citalopram increased. Code(s): F41.9 - Anxiety disorder, unspecified Category: Medical Plan: HAD A GOOD DISCUSSION. ADVISED HER TO USE DEEP BREATHING EXERCISES TO RELAX. DOES NOT WANT ANY ANXIOLYTIC AGENTS Coding Level of Care Code Est Pt Level 3 (38445) Diagnoses COPD (chronic obstructive pulmonary disease) J44.9 Nicotine dependence, cigarettes, uncomplicated F17.210 Pulmonary nodule R91.1 Anxiety F41.9
[2024-12-14 10:53] VITALS: BP 110/64; PULSE 74; O2SAT 94; BMI 23.0
--- OUTSIDE RECORDS SUMMARY | 2024-12-14 12:26 | XMS_ITS | Data Portability ---
Author Organization [place] - [facility], [facility] Address [address] [place] [address] Assessment Encounter Date Assessment Date Assessment LastModified [...] 2 v l/s room 321 [facility] (Juan Burgos), [address] [place], [address], 10:13:30 Medication Orders None recorded . Patient [...] Address Organization Details Recorded Time No complaints [id number] Active Status : 'A'; Not Available [employer] [...] Available Not Available No t Available oxycodone HFb-[id number]-T SA 1 every 4 - 6 hours as needed 2023 active Statu s: 'Curr ent'; Not Available Not Available Not Available Vitals Date Recorded Body height Body mass index (BMI) Body weight Provider Name and Address Organization Details Last Updated DateTime 09/29/2023 154.94 cm 23.6 kg/m2 40599.05 g VIVI KLEIN [place] [facility] 09/29/2023 10:25:19 Social History None recorded. Functional Status None recorded. Mental Status None recorded. Family History Nothing Reported. Medical History No medical history recorded. Gynecological HistoryNo gynecological history recorded. Obstetrics History GPAL:G 0 P 0 0 0 0 Past Encounters Encounter ID Performer Location Encounter Start Date Encounter Closed Date Diagnosis/Indication Diagnosis SNOMED-CT Code Diagnosis ICD10 Code Diagnosis Note [id number] Edward Vazquez MD [facility] [address] [place] [address] 09/29/2023 09:36:55 10/20/2023 10:13:30 Low back pain 788681041 M54.50 Health Concerns Section Related Observation LastModified by Organization Detai ls LastModified Time None Recorded Concern Status LastModified by Organization Details LastModified Time None Recorded Advance Directives Directive None Recorded Payers Insurance Date Sequence Insurance Name Policy Number Policy Brown Covered Member ID Brown Member ID Guarantor Name 10/20/2023 2 [place] [facility] Catia Waggoner [id number] Karen Waggoner 09/29/2023 1 MEDICARE B-[place] [employer] Catia Waggoner [id number] Karen Waggoner Notes Date Note Type Note [...] mass PHYSICAL EXAMINATION: Edward Vazquez MD [address] [facility] [address], [place], [address], [place] - [facility] 09/30/2023 12:50:38 OBGyn Episode No OBEpisode recorded.
== END 2024-12-14 11:13 | disposition home or self-care (01) ==
LOC: HO.HPS 10:38
PROVIDERS: PCP Internal Medicine; Visit Provider Internal Medicine
DX: J44.9 Chronic obstructive pulmonary disease, unspecified (principal); F17.210 Nicotine dependence, cigarettes, uncomplicated; R91.1 Solitary pulmonary nodule; F41.9 Anxiety disorder, unspecified
CPT/HCPCS: 99213

== ENCOUNTER → 2024-12-14 10:37 | Outpatient (BNVA) | payer MEDICARE, MEDICAID, SELFPAY | PROVIDERS: PCP Internal Medicine; Visit Provider Internal Medicine | DX: R91.1 Solitary pulmonary nodule (principal); J44.9 Chronic obstructive pulmonary disease, unspecified; F41.9 Anxiety disorder, unspecified; F17.210 Nicotine dependence, cigarettes, uncomplicated | CPT/HCPCS: 99212 ==

== ENCOUNTER 2025-03-15 15:36 | Outpatient (AMB) | payer MEDICARE, MEDICAID, SELFPAY ==
--- NOTE | 2025-03-15 15:42 | A.OFFPC_ITS ---
Vital Signs 03/15/25 15:44 Height 5 ft 2 in Weight 124 lb 8 oz BMI 22.8 BP 120/60 Blood Pressure Location Lt brachial Position Sitting Pulse 77 Pulse Source Pulse Oximeter Temp 97.1 F Temp Source Temporal Artery Scan Pulse Oximetry (%) 97 Oxygen Delivery Method Room Air Intake Visit Reasons: 6 mo follow up Intake Note: Patient is here to follow up on COPD. Senior Behavioral Scientist Required: No Coconut Cooker: Not Required per policy Accompanied by: Self / Same As Patient Allergies No Known Allergies Allergy (Verified 03/20/25 13:16) Tobacco use date assessed: 03/15/25 Fall risk assessment: No Falls in past year Last assessed Fall Risk: 03/15/25 Dental Screening Dental Screen Date: 03/15/25 Did you have a dental visit in the last 12 months?: No Did you have a dental problem in the last 6 months where you did not have access to dental care?: No Was dental information given to patient?: No PFSH Medical History COPD (chronic obstructive pulmonary disease) History of right breast cancer Nicotine dependence, cigarettes, uncomplicated History of COVID-19 Osteoporosis PONV (postoperative nausea and vomiting) Back pain Surgical History History of colonoscopy (~12/31/22) History of surgery History of eye surgery History of hysterectomy History of breast surgery History of appendectomy Family History Father Colon cancer Mother Cancer Brother No problems noted. Sister No problems noted. Daughter No problems noted. Daughter No problems noted. Family/Other Mental health disorder Substance use disorder Social History Household Members: None Housing: Other Do you presently have visiting nurse or other home services: No Alcohol intake: current Alcohol intake frequency: a few times a month Alcohol type: beer Patient Tobacco Use Status: Current everyday Tobacco user Tobacco use type: Cigarette Cigarette Packs Per Day: 0.5 Cigarettes Per Day: 5 Years Smoked: (onset 14yo, 1ppd x 55yrs, now 1/4ppd - 40+PYH) e-Cigarette/Vaping Use: Never Used Second Hand Smoke Exposure: Yes Substance Use Type: Marijuana Advance Directives Date on File: 02/13/13 service: No Current occupational status: retired Cognitive needs: No Hearing needs: No Vision needs: No Questionnaire Thrive Questionnaire Date Thrive assessed: 06/22/24 I am a: Patient What is your living situation today?: I do not have a steady places to live I am temporarily staying with others Within the past 12 months, did the food you bought not last and you didn't have the money to get more?: I choose not to answer this question Within the past 12 months, did you worry whether your food would run out before you got money to buy more?: I choose not to answer this question Do you have trouble paying for medicines?: No Do you have trouble getting transportation to medical appointments?: No Do you have trouble paying your heating and electricity bill?: No Do you have trouble taking care of your child, family member or friend?: No Do you have trouble with day-to-day activities such as bathing, preparing meals, shopping, managing finances, etc.?: No Are you currently unemployed and looking for a job?: No Are you interested in more education?: No Please select the resources that you would like help with: None Currently or been in a relationship where the following occur: No concerns reported THRIVE Score: 1 ALEJANDRO-7 AMB Questionnaire ALEJANDRO-7 Date ALEJANDRO - 7 assessed: 06/22/24 Source: Developed by Drs. Edward Atwood, Angelina Grant, Pietro Mcfadden and colleagues, with an educational sherin from [employer]. Physical exam (Primary Care) Vital Signs: Last Vital Signs Temp 97.1 F 03/15/25 15:44 Pulse 77 03/15/25 15:44 BP 120/60 03/15/25 15:44 Pulse Ox 97 03/15/25 15:44 Oxygen Delivery Method Room Air 03/15/25 15:44 BMI result Body Mass Index 22.8 Tobacco/Smoking Status: Tobacco use Status Tobacco use date assessed 03/15/25 03/15/25 15:48 Patient Tobacco Use Status Current everyday Tobacco 03/15/25 15:48 Tobacco use type Cigarette 03/15/25 15:48 e-Cigarette/Vaping Use Never Used 03/15/25 15:48 Thrive Assessment: Date of Thrive Assessment Date Thrive assessed 06/22/24 03/15/25 15:48 Currently or been in a relationship where the following occur: No concerns reported Coding Level of Care Code Est Pt Level 4 (07044) Complex EM visit Add On G2211 Diagnoses Depression F32.9 Assessment & Plan Assessment & Plan (1) Depression: Code(s): F32.9 - Major depressive disorder, single episode, unspecified Category: Medical Plan: History of Present Illness - The patient is a 69-year-old female presenting with symptoms of anxiety and depression. - She reports experiencing anxiety and panic symptoms, with a history of medication use that was discontinued due to adverse effects. - The patient is considering medication adjustments due to the recurrence of symptoms and reports alcohol use of up to five beers daily. Social History - The patient reports regular alcohol consumption, with a preference for beer, consuming up to four to five beers daily, especially on weekends. Review of Systems - Psychiatric: Reports anxiety, panic symptoms, and depression. Denies benefit from previous therapy. - Neurological: Reports feeling blah with previous medication use. Physical Exam General: Cooperative and healthy appearing Nutritional Appearance: Well nourished Orientation/consciousness: Patient oriented x3 Limitations: No limitations Head: Normal to inspection General: Appearance normal, both eyes and all related structures Neck: Normal visual inspection Chest: Normal palpation of entire chest wall Respiratory: N ormal respiratory effort Neurology: Patient oriented x3, reports feeling hot. Results Plan - Restart citalopram with a possible increase in dosage or switch to sertraline if no improvement is noted. - Add buspirone 5 mg to the current regimen to address anxiety symptoms. - Schedule a follow-up appointment in one month to assess the effectiveness of the medication adjustments. Discussion Notes I discussed with the patient the potential benefits of restarting citalopram and the option of switching to sertraline if necessary. We also considered adding buspirone to her regimen to help manage her anxiety symptoms. I advised her to monitor her symptoms and scheduled a follow-up appointment in one month to evaluate the effectiveness of these changes. Patient Instructions - Restart citalopram as prescribed and monitor for any changes in symptoms. - Consider switching to sertraline if no improvement is noted. - Add buspirone 5 mg to your daily regimen. - Schedule a follow-up appointment in one month. Medications: New buspirone 5 mg PO DAILY 30 tabs 0RF
[2025-03-15 15:44] VITALS: BP 120/60; PULSE 77; TEMP 36.2; O2SAT 97; BMI 22.8
== END 2025-03-15 16:03 | disposition home or self-care (01) ==
LOC: HO.HMCH 15:37
PROVIDERS: PCP Internal Medicine; Visit Provider Internal Medicine
DX: F32.9 Major depressive disorder, single episode, unspecified (principal)

== ENCOUNTER → 2025-03-15 15:36 | Outpatient (BNVA) | payer MEDICARE, MEDICAID, SELFPAY | PROVIDERS: PCP Internal Medicine; Visit Provider Internal Medicine | DX: M81.0 Age-related osteoporosis without current pathological fracture (principal); J44.9 Chronic obstructive pulmonary disease, unspecified; F32.9 Major depressive disorder, single episode, unspecified | CPT/HCPCS: 99212 ==

== ENCOUNTER 2025-03-20 12:50 | Outpatient (AMB) | payer MEDICARE, MEDICAID, SELFPAY ==
--- NOTE | 2025-03-20 13:12 | MHC.OFFVIS ---
Vital Signs 03/20/25 13:14 Height 5 ft 2 in Weight 125 lb 3.561 oz BMI 22.9 BP 110/72 Blood Pressure Location Lt brachial Position Sitting Pulse 77 Pulse Source Pulse Oximeter Intake Visit Reasons: 6 mth f/up Allergies No Known Allergies Allergy (Verified 03/20/25 13:16) Medication List - Last Reconciled 03/20/25 by Xiao Hairston, SLUDGE CONTROL ATTENDANT-C Advair HFA 115-21 mcg/actuation (fluticasone propion-salmeterol) 2 puffs inhalation BID 30 days NS buspirone 5 mg PO DAILY citalopram 20 mg PO DAILY metoprolol succinate ER 25 mg PO DAILY simvastatin 10 mg PO BEDTIME HPI HPI 6 mth f/up: Details: Karen is a 69-year-old female past medical history of smoking, abnormal finding on EKG followed by normal nuclear stress test who presents for follow-up. Today she reports that she has been doing well since her last visit in August. She does have shortness of breath with exertional activities which is not new. She continues to smoke. She is being treated for anxiety and depression and just started a new medication. No chest discomfort at rest or with activity. No concerning heart palpitations, No lightheadedness, presyncope, syncope. Taking meds as directed. [facility] Medical History COPD (chronic obstructive pulmonary disease) History of right breast cancer Nicotine dependence, cigarettes, uncomplicated History of COVID-19 Osteoporosis PONV (postoperative nausea and vomiting) Back pain Surgical History History of colonoscopy (~12/31/22) History of surgery History of eye surgery History of hysterectomy History of breast surgery History of appendectomy Family History Father Colon cancer Mother Cancer Brother No problems noted. Sister No problems noted. Daughter No problems noted. Daughter No problems noted. Family/Other Mental health disorder Substance use disorder Social History Household Members: None Housing: Other Do you presently have visiting nurse or other home services: No Alcohol intake: current Alcohol intake frequency: a few times a month Alcohol type: beer Patient Tobacco Use Status: Current everyday Tobacco user Tobacco use type: Cigarette Cigarette Packs Per Day: 0.5 Cigarettes Per Day: 5 Years Smoked: (onset 14yo, 1ppd x 55yrs, now 1/4ppd - 40+PYH) e-Cigarette/Vaping Use: Never Used Second Hand Smoke Exposure: Yes Substance Use Type: Marijuana Advance Directives Date on File: 02/13/13 service: No Current occupational status: retired Cognitive needs: No Hearing needs: No Vision needs: No Review of Systems Const All systems reviewed & are unremarkable except as noted in HPI and below ENT Denies dizziness Card Denies chest pain, Denies chest pain at rest, Denies chest pain with activity, Denies rapid heart rate, Denies pedal edema, Denies edema, Denies leg edema, Denies lightheadedness, Denies palpitations, Denies dyspnea, Denies dyspnea on exertion and Denies orthopnea Resp Denies cough, Denies dyspnea and Denies dyspnea on exertion GI Denies hematochezia and Denies change in stool character Musc Denies abnormal gait, Denies limited range of motion, Denies muscle cramps, Denies muscle weakness, Denies numbness, Denies radiating pain into limb, Denies stiffness and Denies tingling Neuro Denies abnormal gait, Denies dizziness, Denies numbness and Denies tingling Endo Denies palpitations Physical Exam Vital Signs: Last Vital Signs Pulse 77 03/20/25 13:14 BP 110/72 03/20/25 13:14 BMI result Body Mass Index 22.9 Const General: cooperative, healthy appearing, comfortable and no acute distress Orientation/consciousness: patient oriented x3 Neck Neck: Yes normal visual inspection Resp Other: Lungs diminished Effort & Inspection: normal respiratory effort Auscultation: clear to auscultation bilaterally, no rales, no rhonchi and no wheezes Cardio Rate: regular rate Rhythm: regular rhythm Heart sounds: S1 normal heart sound present, S2 normal heart sound present, no murmurs and no rubs Neuro General: patient oriented x3 Extrem General: Yes normal to inspection, No no pedal edema and No calf tenderness Psych Appearance: grossly normal Mental Status: mental status grossly normal Speech and movement: Normal speech and movement present Assessment & Plan Assessment & Plan (1) Abnormal EKG: Code(s): R94.31 - Abnormal electrocardiogram [ECG] [EKG] Category: Medical Plan: EKG 05/05/2024 shows sinus rhythm with sinus arrhythmia, ST and T-wave abnormality in the anterior lateral leads suggesting possible ischemia. Cardiac evaluation included echocardiogram on 06/27/2024 showing EF 59%, inferior lateral and basal inferior mcgrath hypokinetic. An exercise nuclear stress test done 09/14/2024 showed exercise 1 minute and 51 seconds with need to stop due to severe shortness of breath and back discomfort. Test was changed to a pharmacological stress test and nuclear imaging was normal. She may have some degree of coronary artery disease which is being followed and managed medically. She has no chest discomfort. Her shortness of breath is likely pulmonary related. She continues to smoke and was instructed to stop. Continue simvastatin with ideal LDL goal less than 100. Continue metoprolol. Signs and symptoms of angina reviewed with her. If she does have chest discomfort then CTA of the coronary arteries will be considered. Cardiology follow-up 1 year, sooner if needed. sooner if needed (2) Atrial tachycardia: Code(s): I47.19 - Other supraventricular tachycardia Category: Medical Plan: Prior reports of intermittent heart palpitations. Holter monitor done 06/27/2024 for 3 days shows sinus rhythm with average heart rate 86, 22% of the time heart rate greater than 100, episode of narrow complex tachycardia lasting 4 minutes 45 seconds, rate 176, rare ventricular ectopy. She was started on metoprolol and condition stable since that time. Vagal maneuvers reviewed. ED care if ever needed for sustained rapid heart palpitations. (3) SOB (shortness of breath): Comment: Shortness of breath with exertion over last 1-2 years. It is definitely secondary to chronic obstructive pulmonary disease as confirmed by spirometry. Code(s): R06.02 - Shortness of breath Category: Medical Plan: She has shortness of breath with exertion as seen on recent cardiac stress test. She continues to smoke. (4) Moderate cigarette smoker (10-19 per day): Comment: Is currently smoking 1 pack of cigarettes over 4 days. trying to cut down . Code(s): F17.210 - Nicotine dependence, cigarettes, uncomplicated Category: Social Hx Plan: As above (5) Abnormal echocardiogram findings without diagnosis: Code(s): R93.1 - Abnormal findings on diagnostic imaging of heart and coronary circulation Category: Medical Plan: Echocardiogram does show wall motion abnormality. Nuclear imaging on stress test was normal. Plan Time spent on chart review, documentation, interview and assessment Coding Level of Care Code Est Pt Level 4 (54808) Complex EM visit Add On G2211 Diagnoses Abnormal EKG R94.31 Atrial tachycardia I47.19 SOB (shortness of breath) R06.02 Moderate cigarette smoker (10-19 per day) F17.210 Abnormal echocardiogram findings without diagnosis R93.1 Time Spent (min) 28
[2025-03-20 13:14] VITALS: BP 110/72; PULSE 77; BMI 22.9
== END 2025-03-20 13:37 | disposition home or self-care (01) ==
PROVIDERS: PCP Internal Medicine; Visit Provider Nurse Practitioner Family
DX: R94.31 Abnormal electrocardiogram [ECG] [EKG] (principal); I47.19 Other supraventricular tachycardia; R06.02 Shortness of breath; F17.210 Nicotine dependence, cigarettes, uncomplicated; R93.1 Abnormal findings on diagnostic imaging of heart and coronary circulation
CPT/HCPCS: 99214; G2211

== ENCOUNTER → 2025-03-20 12:50 | Outpatient (BNVA) | payer MEDICARE, MEDICAID, SELFPAY | PROVIDERS: PCP Internal Medicine; Visit Provider Nurse Practitioner Family | DX: R94.31 Abnormal electrocardiogram [ECG] [EKG] (principal); I47.19 Other supraventricular tachycardia; R06.02 Shortness of breath; F17.210 Nicotine dependence, cigarettes, uncomplicated; R93.1 Abnormal findings on diagnostic imaging of heart and coronary circulation | CPT/HCPCS: 99212 ==

== ENCOUNTER 2025-04-16 10:46 | Outpatient (AMB) | payer MEDICARE, MEDICAID, SELFPAY ==
[2025-04-16 10:50] VITALS: BP 140/82; PULSE 87; O2SAT 92; BMI 22.9
--- NOTE | 2025-04-16 10:50 | A.OFFVIS_ITS ---
Vital Signs 04/16/25 10:50 Height 5 ft 2 in Weight 125 lb BMI 22.9 BP 140/82 H Blood Pressure Location Lt brachial Position Sitting Pulse 87 Pulse Source Pulse Oximeter Pulse Oximetry (%) 92 Oxygen Delivery Method Room Air Intake Visit Reasons: Shortness of Breath/Smoker Intake Note: pt is here for follow up and states she is feeling good. 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: Supervisor Road Administrator offered & declined Allergies No Known Allergies Allergy (Verified 04/16/25 11:06) Medication List - Last Reconciled 04/16/25 by Juan Alberto Marrero MD Advair HFA 115-21 mcg/actuation (fluticasone propion-salmeterol) 2 puffs inhalation BID 30 days NS buspirone 5 mg PO DAILY citalopram 20 mg PO DAILY metoprolol succinate ER 25 mg PO DAILY simvastatin 10 mg PO BEDTIME Do you need a note to return to daycare/school/sports/work: No HPI HPI Shortness of Breath/Smoker: Details: 69 years old very pleasant female, long-term smoker and has chronic obstructive pulmonary disease, which is. Staying relatively stable She only has mild intermittent cough and gets short of breath only if she walks up hill. Or climbs stairs Still smoking about 4 cigarettes a day. Luckily she has had no acute exacerbation in the last 4 months. [facility] Medical History COPD (chronic obstructive pulmonary disease) History of right breast cancer Nicotine dependence, cigarettes, uncomplicated History of COVID-19 Osteoporosis PONV (postoperative nausea and vomiting) Back pain Surgical History History of colonoscopy (~12/31/22) History of surgery History of eye surgery History of hysterectomy History of breast surgery History of appendectomy Family History Father Colon cancer Mother Cancer Brother No problems noted. Sister No problems noted. Daughter No problems noted. Daughter No problems noted. Family/Other Mental health disorder Substance use disorder Social History Household Members: None Housing: Other Do you presently have visiting nurse or other home services: No Alcohol intake: current Alcohol intake frequency: a few times a month Alcohol type: beer Patient Tobacco Use Status: Current everyday Tobacco user Tobacco use type: Cigarette Cigarette Packs Per Day: 0.5 Cigarettes Per Day: 5 Years Smoked: (onset 14yo, 1ppd x 55yrs, now 1/4ppd - 40+PYH) e-Cigarette/Vaping Use: Never Used Second Hand Smoke Exposure: Yes Substance Use Type: Marijuana Advance Directives Date on File: 02/13/13 service: No Current occupational status: retired Cognitive needs: No Hearing needs: No Vision needs: No Review of Systems Const Reports no additional complaints Eyes Reports no additional complaints ENT Reports no additional complaints Card Reports no additional complaints Resp Reports as per HPI GI Reports no additional complaints Reports no additional complaints Musc Reports no additional complaints Skin/Breast Reports system reviewed and no additional complaints, except as documented Neuro Reports no additional complaints Psych Reports anxiety Endo Reports no additional complaints Tc/Lymph Reports no additional complaints Aller/Immun Reports no additional complaints Physical Exam Vital Signs: Last Vital Signs Pulse 87 04/16/25 10:50 BP 140/82 H 04/16/25 10:50 Pulse Ox 92 04/16/25 10:50 Oxygen Delivery Method Room Air 04/16/25 10:50 BMI result Body Mass Index 22.9 Const General: healthy appearing (But a little anxious), comfortable, no acute distress, alert and awake Orientation/consciousness: patient oriented x3 HEENT Head: Yes normal to inspection General nose exam: No nasal polyps present and No nasal discharge present Face and sinus: Yes sinuses nontender Mouth: oropharynx normal Throat: Yes posterior oropharynx normal Eyes General: appearance normal, both eyes and all related structures Neck Neck: Yes normal visual inspection, Yes no lymphadenopathy, Yes trachea midline and Yes no JVD Thyroid: Thyroid normal Chest Chest palpation & inspection: normal inspection of the chest, normal palpation of entire chest wall and no tenderness Resp Other: Percussion note is resonant. .Chest is symmetrical Breath sounds are slightly distant with prolonged expiratory phase. No audible wheezes or rhonchi are heard . Cardio Palpation: normal PMI Rate: regular rate Rhythm: regular rhythm Heart sounds: no gallops and no murmurs Peripheral pulses: Peripheral pulses 2+ throughout GI Palpation (GI): Soft to palpation, nontender, No hepatosplenomegaly present and no masses Auscultation: normal bowel sounds Back/Spine/Pelvis Thoracic/Lumbar Spine: thoracic and lumbar spine normal to inspection Skin General skin exam: no rashes or lesions noted Neuro General: patient oriented x3 and no focal motor deficits Cranial nerves: Yes CN's II-XII intact bilaterally Extrem General: Yes normal to inspection, Yes no clubbing, cyanosis or edema and Yes no calf tenderness Psych Appearance: grossly normal and well kempt Speech and movement: Normal speech and movement present Assessment & Plan Assessment & Plan (1) COPD (chronic obstructive pulmonary disease): Comment: SHE IS A CASE OF MODERATELY SEVERE OBSTRUCTIVE AIRWAY DISORDER ( COPD ) THIS IS DEFINITELY RELATED TO HER LIFELONG SMOKING. PARTIALLY IMPROVED WITH THE USE OF ADVAIR HFA, AND SHE IS STAYING RELATIVELY STABLE. Code(s): J44.9 - Chronic obstructive pulmonary disease, unspecified Category: Medical Plan: ADVISED TO CONTINUE USING ADVAIR HFA 115-212 PUFFS B.I.D.. AND USE ALBUTEROL HFA 2 PUFFS Q 4-6 HOURS P.R.N. (2) Pulmonary nodule: Comment: (5mm RUL nodule seen on 11/24/24 LDCT - REVIEWD ON 12/01 , AND CLASSIFIED CATEGORY 2 MOST LIKELY BENIGN NODULE Code(s): R91.1 - Solitary pulmonary nodule Category: Medical Plan: CONTINUE TO GET ANNUAL LDCT. (3) Nicotine dependence, cigarettes, uncomplicated: Comment: (onset 14yo, 1ppd x 55yrs, now 1/4ppd - 40+PYH) CURRENTLY HAS CUT DOWN TO 4 CIGARETTES A DAY,. Code(s): F17.210 - Nicotine dependence, cigarettes, uncomplicated Category: Medical Plan: URGE TO QUIT COMPLETELY ON AT LEAST CUT DOWN THE NUMBER OF CIGARETTES TO 2 PER DAY Coding Level of Care Code Est Pt Level 3 (43399) Diagnoses COPD (chronic obstructive pulmonary disease) J44.9 Pulmonary nodule R91.1 Nicotine dependence, cigarettes, uncomplicated F17.210
== END 2025-04-16 11:09 | disposition home or self-care (01) ==
LOC: HO.HPS 10:46
PROVIDERS: PCP Internal Medicine; Visit Provider Internal Medicine
DX: J44.9 Chronic obstructive pulmonary disease, unspecified (principal); R91.1 Solitary pulmonary nodule; F17.210 Nicotine dependence, cigarettes, uncomplicated
CPT/HCPCS: 99213

== ENCOUNTER → 2025-04-16 10:46 | Outpatient (BNVA) | payer MEDICARE, MEDICAID, SELFPAY | PROVIDERS: PCP Internal Medicine; Visit Provider Internal Medicine | DX: J44.9 Chronic obstructive pulmonary disease, unspecified (principal); R91.1 Solitary pulmonary nodule; F17.210 Nicotine dependence, cigarettes, uncomplicated | CPT/HCPCS: 99212 ==

== ENCOUNTER 2025-04-18 09:46 | Outpatient (AMB) | payer MEDICARE, MEDICAID, SELFPAY ==
--- NOTE | 2025-04-18 10:03 | A.OFFPC_ITS ---
Vital Signs 04/18/25 10:04 Height 5 ft 2 in Weight 124 lb 4 oz BMI 22.7 BP 120/66 Blood Pressure Location Lt brachial Position Sitting Pulse 78 Pulse Source Pulse Oximeter Temp 97.3 F Temp Source Temporal Artery Scan Pulse Oximetry (%) 98 Oxygen Delivery Method Room Air Intake Visit Reasons: Follow Up Intake Note: Patient is here to follow up on COPD. 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 Manager Baby: Not Required per policy Accompanied by: Self / Same As Patient Allergies No Known Allergies Allergy (Verified 04/18/25 10:03) Tobacco use date assessed: 04/18/25 Fall risk assessment: No Falls in past year Last assessed Fall Risk: 04/18/25 Dental Screening Dental Screen Date: 03/15/25 [facility] Medical History COPD (chronic obstructive pulmonary disease) History of right breast cancer Nicotine dependence, cigarettes, uncomplicated History of COVID-19 Osteoporosis PONV (postoperative nausea and vomiting) Back pain Surgical History History of colonoscopy (~12/31/22) History of surgery History of eye surgery History of hysterectomy History of breast surgery History of appendectomy Family History Father Colon cancer Mother Cancer Brother No problems noted. Sister No problems noted. Daughter No problems noted. Daughter No problems noted. Family/Other Mental health disorder Substance use disorder Social History Household Members: None Housing: Other Do you presently have visiting nurse or other home services: No Alcohol intake: current Alcohol intake frequency: a few times a month Alcohol type: beer Patient Tobacco Use Status: Current everyday Tobacco user Tobacco use type: Cigarette Cigarette Packs Per Day: 0.5 Cigarettes Per Day: 6 Years Smoked: (onset 14yo, 1ppd x 55yrs, now 1/4ppd - 40+PYH) e-Cigarette/Vaping Use: Never Used Second Hand Smoke Exposure: Yes Substance Use Type: Marijuana Advance Directives Date on File: 02/13/13 service: No Current occupational status: retired Cognitive needs: No Hearing needs: No Vision needs: No Questionnaire Thrive Questionnaire Date Thrive assessed: 06/22/24 I am a: Patient What is your living situation today?: I do not have a steady places to live I am temporarily staying with others Within the past 12 months, did the food you bought not last and you didn't have the money to get more?: I choose not to answer this question Within the past 12 months, did you worry whether your food would run out before you got money to buy more?: I choose not to answer this question Do you have trouble paying for medicines?: No Do you have trouble getting transportation to medical appointments?: No Do you have trouble paying your heating and electricity bill?: No Do you have trouble taking care of your child, family member or friend?: No Do you have trouble with day-to-day activities such as bathing, preparing meals, shopping, managing finances, etc.?: No Are you currently unemployed and looking for a job?: No Are you interested in more education?: No Please select the resources that you would like help with: None Currently or been in a relationship where the following occur: No concerns reported THRIVE Score: 1 ALEJANDRO-7 AMB Questionnaire ALEJANDRO-7 Date ALEJANDRO - 7 assessed: 06/22/24 Source: Developed by Drs. Edward Atwood, Angelina Grant, Pietro Mcfadden and colleagues, with an educational sherin from [employer]. Physical exam (Primary Care) Vital Signs: Last Vital Signs Temp 97.3 F 04/18/25 10:04 Pulse 78 04/18/25 10:04 BP 120/66 04/18/25 10:04 Pulse Ox 98 04/18/25 10:04 Oxygen Delivery Method Room Air 04/18/25 10:04 BMI result Body Mass Index 22.7 Tobacco/Smoking Status: Tobacco use Status Tobacco use date assessed 04/18/25 04/18/25 10:08 Patient Tobacco Use Status Current everyday Tobacco 04/18/25 10:08 Tobacco use type Cigarette 04/18/25 10:08 e-Cigarette/Vaping Use Never Used 04/18/25 10:08 Thrive Assessment: Date of Thrive Assessment Date Thrive assessed 06/22/24 04/18/25 10:08 Currently or been in a relationship where the following occur: No concerns reported Coding Level of Care Code Est Pt Level 4 (42507) Complex EM visit Add On G2211 Diagnoses Depression F32.9 Assessment & Plan Assessment & Plan (1) Depression: Code(s): F32.9 - Major depressive disorder, single episode, unspecified Category: Medical Plan: History of Present Illness - The patient is a 69-year-old female presenting with a rash and itchy arms. - The rash is visible and palpable, prompting the patient to stop a medication, although it was not the cause. - The patient reports itchy ears, which is a new symptom. - The patient was prescribed citalopram and buspirone, but she stopped taking the medication for a couple of days without consulting the physician. - The patient experienced a stressful weekend due to personal events involving friends and family. - The patient plans to travel with her girlfriend in April and on a cruise in July. Social History - The patient has a supportive social network, including a girlfriend and a daughter who visits from [place]. - The patient plans to travel with her girlfriend in April and on a cruise in July, indicating an active social life. Review of Systems - Dermatological: Reports rash and itchy ears. Physical Exam General: Cooperative and healthy appearing Nutritional Appearance: Well nourished Orientation/consciousness: Patient oriented x3 Limitations: No limitations Head: Normal to inspection General: Appearance normal, both eyes and all related structures Neck: Normal visual inspection Chest: Normal palpation of entire chest wall Respiratory: N ormal respiratory effort Neurology: Patient oriented x3, reports emotional distress due to personal events. Results Plan - Continue citalopram and buspirone for one more month and reassess. - Prescribe a topical cream for the rash and itchy ears. - Discussed the option of a flu vaccination, but the patient declined. Discussion Notes I discussed with the patient the continuation of citalopram and buspirone for another month to evaluate their effectiveness. I also recommended a topical cream for her rash and itchy ears. We talked about the option of a flu vaccination, which she declined. Follow-up was advised in one month to reassess her condition and medication response. Patient Instructions - Continue taking citalopram and buspirone as prescribed. - Apply the prescribed cream to the rash and itchy areas as directed. - Schedule a follow-up appointment in one month.
[2025-04-18 10:04] VITALS: BP 120/66; PULSE 78; TEMP 36.3; O2SAT 98; BMI 22.7
== END 2025-04-18 10:38 | disposition home or self-care (01) ==
LOC: HO.HMCH 09:47
PROVIDERS: PCP Internal Medicine; Visit Provider Internal Medicine
DX: F32.9 Major depressive disorder, single episode, unspecified (principal)

== ENCOUNTER → 2025-04-18 09:46 | Outpatient (BNVA) | payer MEDICARE, MEDICAID, SELFPAY | PROVIDERS: PCP Internal Medicine; Visit Provider Internal Medicine | DX: F32.9 Major depressive disorder, single episode, unspecified (principal) | CPT/HCPCS: 99212 ==

== ENCOUNTER 2025-05-23 09:25 | Outpatient (AMB) | payer MEDICARE, SELFPAY ==
--- NOTE | 2025-05-23 09:51 | A.OFFPC_ITS ---
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 Boiler Tender: Not Required per policy Accompanied by: Self / Same As Patient Allergies No Known Allergies Allergy (Verified 05/23/25 13:22) Medication List - Last Reconciled 05/23/25 by Girma Baer MD Advair HFA 115-21 mcg/actuation (fluticasone propion-salmeterol) 2 puffs inhalation BID 30 days NS buspirone 5 mg PO DAILY citalopram 20 mg PO DAILY hydrocortisone 2.5% 1 appl topical BID PRN metoprolol succinate ER 25 mg PO DAILY simvastatin 10 mg PO BEDTIME Tobacco use date assessed: 05/23/25 Fall risk assessment: No Falls in past year Last assessed Fall Risk: 05/23/25 Dental Screening Dental Screen Date: 03/15/25 HPI HPI Comments History of Present Illness Details History of Present Illness - The patient is a 69-year-old individua l presenting for follow-up of mood and anxiety, as well as a new skin complaint. - The patient is being treated with busp irone and citalopram for anxiety and reports feeling okay on the regimen. - The anxiety is not too bad, but the pa tient continues to experience episodes of melancholy and crying, particularly at the end of the month, which the patient associates with being broke. - The patient reports taking these two m edications in the morning. - The patient reports a new complaint of a rough, itchy rash on one arm, noting that it seems to be spreading up the arm. - The patient also reports not sleeping well. - The patient has a history of a heart c ondition and hypercholesterolemia, for which medications are taken at night. - The patient has previously seen a ther apist but is not currently in therapy and expresses a negative opinion about its helpfulness. Social History - The patient reports financial stress a t the end of the month. - The patient expresses feelings of lone liness. Results FOR[facility] Medical History COPD (chronic obstructive pulmonary disease) History of right breast cancer Nicotine dependence, cigarettes, uncomplicated History of COVID-19 Osteoporosis PONV (postoperative nausea and vomiting) Back pain Surgical History History of colonoscopy (~12/31/22) History of surgery History of eye surgery History of hysterectomy History of breast surgery History of appendectomy Family History Father Colon cancer Mother Cancer Brother No problems noted. Sister No problems noted. Daughter No problems noted. Daughter No problems noted. Family/Other Mental health disorder Substance use disorder Social History Household Members: None Housing: Other Do you presently have visiting nurse or other home services: No Alcohol intake: current Alcohol intake frequency: a few times a month Alcohol type: beer Patient Tobacco Use Status: Current everyday Tobacco user Tobacco use type: Cigarette Cigarette Packs Per Day: 0.5 Cigarettes Per Day: 6 Years Smoked: (onset 14yo, 1ppd x 55yrs, now 1/4ppd - 40+PYH) e-Cigarette/Vaping Use: Never Used Second Hand Smoke Exposure: Yes Substance Use Type: Marijuana Advance Directives Date on File: 02/13/13 service: No Current occupational status: retired Cognitive needs: No Hearing needs: No Vision needs: No Questionnaire Thrive Questionnaire Date Thrive assessed: 06/22/24 I am a: Patient What is your living situation today?: I do not have a steady places to live I am temporarily staying with others Within the past 12 months, did the food you bought not last and you didn't have the money to get more?: I choose not to answer this question Within the past 12 months, did you worry whether your food would run out before you got money to buy more?: I choose not to answer this question Do you have trouble paying for medicines?: No Do you have trouble getting transportation to medical appointments?: No Do you have trouble paying your heating and electricity bill?: No Do you have trouble taking care of your child, family member or friend?: No Do you have trouble with day-to-day activities such as bathing, preparing meals, shopping, managing finances, etc.?: No Are you currently unemployed and looking for a job?: No Are you interested in more education?: No Please select the resources that you would like help with: None Currently or been in a relationship where the following occur: No concerns reported THRIVE Score: 1 ALEJANDRO-7 AMB Questionnaire ALEJANDRO-7 Date ALEJANDRO - 7 assessed: 06/22/24 Source: Developed by Drs. Edward Atwood, Angelina Grant, Pietro Mcfadden and colleagues, with an educational sherin from [employer]. Review of Systems Narrative Review of Systems - Psychiatric: Reports intermittent melancholy, crying spells, and loneliness. - Skin: Reports a rough and itchy rash on one arm that is spreading. - Constitutional: Reports poor sleep and feeling tired. Physical exam (Primary Care) Vital Signs: Last Vital Signs Temp 97.1 F 05/23/25 09:52 Pulse 84 05/23/25 09:52 BP 130/76 05/23/25 09:52 Pulse Ox 95 05/23/25 09:52 Oxygen Delivery Method Room Air 05/23/25 09:52 BMI result Body Mass Index 23.3 Tobacco/Smoking Status: Tobacco use Status Tobacco use date assessed 05/23/25 05/23/25 09:55 Patient Tobacco Use Status Current everyday Tobacco 05/23/25 09:55 Tobacco use type Cigarette 05/23/25 09:55 e-Cigarette/Vaping Use Never Used 05/23/25 09:55 Thrive Assessment: Date of Thrive Assessment Date Thrive assessed 06/22/24 05/23/25 09:55 Currently or been in a relationship where the following occur: No concerns reported Narrative Physical Exam General: Cooperative and healthy appearing Nutritional Appearance: Well nourished Orientation/consciousness: Patient oriented x3 Limitations: No limitations Head: Normal to inspection General: Appearance normal, both eyes and all related structures Neck: Normal visual inspection Chest: Normal palpation of entire chest wall Respiratory: Normal respiratory effort Neurology: Patient oriented x3 Coding Level of Care Code Est Pt Level 4 (53619) Complex visit Add On G2211 Diagnoses Depression F32.9 Assessment & Plan Assessment & Plan (1) Depression: Code(s): F32.9 - Major depressive disorder, single episode, unspecified Category: Medical Plan Plan - The patient will continue the current medications for anxiety and mood, buspirone and citalopram. - A prescription for hydrocortisone cream will be sent to the pharmacy for the pruritus on the arm. - The patient is to return for a follow-up visit in three months. Discussion Notes I reviewed the patient's ongoing symptoms of melancholy and anxiety despite taking buspirone and citalopram. I advised the patient to continue the current medication regimen. We discussed the new complaint of an itchy rash on one arm, and I informed the patient that I will provide a prescription for hydrocortisone cream. We agreed to a follow-up appointment in three months to reassess. Patient Instructions - Continue taking your current medications, including buspirone and citalopram, every day. - I am prescribing hydrocortisone cream for the itchy rash on your arm. Please apply it as directed. - Please schedule a follow-up visit in three months. Medications: New hydrocortisone 2.5% 1 appl topical BID PRN 20 grams 0RF skin irritation
[2025-05-23 09:52] VITALS: BP 130/76; PULSE 84; TEMP 36.2; O2SAT 95; BMI 23.3
== END 2025-05-23 10:29 | disposition home or self-care (01) ==
LOC: HO.HMCH 09:26
PROVIDERS: PCP Internal Medicine; Visit Provider Internal Medicine
DX: F32.9 Major depressive disorder, single episode, unspecified (principal)

== ENCOUNTER → 2025-05-23 09:25 | Outpatient (BNVA) | payer MEDICARE, SELFPAY | PROVIDERS: PCP Internal Medicine; Visit Provider Internal Medicine | DX: F32.9 Major depressive disorder, single episode, unspecified (principal) | CPT/HCPCS: 99212 ==